=== PATIENT | female | born 1945 | race American Indian/Alaskan Native ===

== ENCOUNTER 2016-11-11 17:00 | Inpatient (IN) | payer MEDICARE ==
[2016-11-11 17:01] VITALS: BMI 24.0
[2016-11-11] MEDS ORDERED: Aspirin 325 mg EC Tablets PO STA (18:28)
[2016-11-11 18:45] LABS: BASO % 0.8 % (0.0-2.0); EOS # 0.2 K/uL (0.0-0.7); EOS % 3.3 % (0.0-4.0); HEMATOCRIT 20.2 % (34.0-47.0); LYMPH # 1.8 K/uL (1.0-4.3); LYMPH % 36.2 % (20.0-40.0); MEAN CELL VOLUME 68.3 fL (81.0-99.0); MEAN CORPUSCULAR HGB CONC 30.8 g/dL (33.0-37.0); MEAN PLATELET VOLUME 8.2 fL (7.2-11.7); MONO # 0.6 K/uL (0.0-0.8); MONO % 11.7 % (0.0-10.0); NRBC % 0.1 % (0.0-2.0); WHITE BLOOD COUNT 4.9 K/uL (4.8-10.8)
[2016-11-11 18:51] LABS: CHLORIDE 90 mmol/L (98-107)
[2016-11-11] MEDS ORDERED: Aspirin 325 mg EC Tablets PO ONE (18:51)
[2016-11-11 18:52] LABS: POTASSIUM 4.4 mmol/L (3.6-5.2); SODIUM 135 mmol/L (132-148)
[2016-11-11 18:54] LABS: ALB/GLOB RATIO 1.3 (1.0-2.1); ALKALINE PHOSPHATASE 174 U/L (38-126); AST/SGOT 23 U/L (14-36); BILIRUBIN,TOTAL 0.7 mg/dL (0.2-1.3); CARBON DIOXIDE 34 mmol/L (22-30); GFR AFRICAN-AMERICAN 9; TOTAL PROTEIN 7.4 g/dL (6.3-8.3)
[2016-11-11 18:55] LABS: ALT/SGPT 17 U/L (9-52); BLOOD UREA NITROGEN 42 mg/dL (7-17); CALCIUM 9.2 mg/dl (8.6-10.4); GLUCOSE,RANDOM 97 mg/dL (65-105)
--- NOTE | 2016-11-11 20:59 | C.PDOC ---
History Of Present Illness 71 y/o female, past medical history including HTN and ESRD, with dialysis on Monday, , Monday - last dialysis yesterday, presents to emergency department with complaint of right sided chest pain which started earlier this morning. She describes pain as sharp and non-radiating. Patient denies headache , SOB, fever, abdominal pain, nausea, or vomiting. Patient denies any recent cardiac workup. She notes that she did not take her evening anti-hypertensives. Also, denies any blood in the stool. Chief Complaint (Nursing): Chest Pain History Per: Patient History/Exam Limitations: no limitations Onset/Duration Of Symptoms: Days Current Symptoms Are (Timing): Still Present Quality: Sharp, "Pain" Associated Symptoms: denies: Nausea, Dyspnea, Diaphoresis Recent travel outside of the [place]: No Past Medical History Reviewed: Historical Data, Nursing Documentation, Vital Signs Vital Signs: Last Vital Signs Temp 98.1 F 11/11/16 23:30 Pulse 60 11/11/16 23:30 Resp 20 11/11/16 23:30 BP 143/62 11/11/16 23:30 Pulse Ox 97 11/11/16 23:30 - Medical History PMH: Anemia, Diabetes, HTN, Hypercholesterolemia, Chronic Kidney Disease - [facility] Procedures BONE MARROW BIOPSY (11/06/13) CT SCAN OF L KIDNEY USING L OSM CONTRAST (08/05/15) ENDOSC POLYPECTOMY OF LG INTEST (11/06/13) ESOPHAGOGASTRODUODENOSCOPY [EGD] W/CLOSED BIOPSY (11/06/13) EXCISION OF LEFT KIDNEY, PERCUTANEOUS APPROACH, DIAGNOSTIC (08/05/15) PACKED CELL TRANSFUSION (11/06/13) TRANSFUSE NONAUT RED BLOOD CELLS IN PERIPH VEIN, PERC (08/05/15) Family History: States: Unknown Family Hx - Social History Hx Tobacco Use: No Hx Alcohol Use: No Hx Substance Use: No - Immunization History Hx Tetanus Toxoid Vaccination: No Hx Influenza Vaccination: No Hx Pneumococcal Vaccination: No Review Of Systems Except As Marked, All Systems Reviewed And Found Negative. Constitutional: Negative for: Fever, Chills Cardiovascular: Positive for: Chest Pain (right sided). Negative for: Palpitations Respiratory: Negative for: Cough, Shortness of Breath, Wheezing Gastrointestinal: Negative for: Nausea, Vomiting, Abdominal Pain, Hematochezia Musculoskeletal: Negative for: Neck Pain Skin: Negative for: Rash Neurological: Negative for: Headache, Dizziness Physical Exam - Physical Exam Appears: Non-toxic, No Acute Distress Skin: Warm, Dry Head: Atraumatic, Normacephalic Eye(s): bilateral: Normal Inspection Oral Mucosa: Moist Chest: Symmetrical, No Ecchymosis, Other (right subclavian Shylie) Cardiovascular: Rhythm Regular Respiratory: Normal Breath Sounds, No Accessory Muscle Use, No Rales, No Rhonchi , No Wheezing Gastrointestinal/Abdominal: Soft, No Tenderness, No Guarding, No Rebound Back: Normal Inspection Extremity: Normal ROM, Capillary Refill (< 2 sec. ) Neurological/Psych: Oriented x3, Normal Speech, Normal Cognition ED Course And Treatment - Laboratory Results Result Diagrams: 11/11/16 18:40 11/11/16 18:40 ECG: Interpreted By Me ECG Rhythm: Sinus Rhythm Interpretation Of ECG: normal axis, normal interval, left atrial enlargement Rate From EC (bpm) O2 Sat by Pulse Oximetry: 96 (ra) Pulse Ox Interpretation: Normal - Radiology CXR: Interpreted by Me Medical Decision Making Medical Decision Making: Plan: * aspirin 325mg PO * hydralazine * EKG, CxR, bloodwork, cardiac/vascular sonographer * reassess Prior Visits: Notes and results from previous visits were reviewed Progress Notes: Notified Dr. Carlos Gallego, will be admitted to his service under telemetry for chest pain and low hgb. Disposition - Disposition Disposition Time: 19:30 Condition: STABLE - Clinical Impression Clinical Impression: Chest pain, Anemia, Renal failure - Scribe Statement The provider has reviewed the documentation as recorded by the Kishoreibsalazar Mclean All medical record entries made by the Kishoreibsalazar were at my direction and personally dictated by me. I have reviewed the chart and agree that the record accurately reflects my personal performance of the history, physical exam, medical decision making, and the department course for this patient. I have also personally directed, reviewed, and agree with the discharge instructions and disposition.
--- NOTE | 2016-11-11 21:59 | CP.PCM.HP ---
History of Present Illness - History of Present Illness History of Present Illness: 71-year-old female patient with past medical history of hypertension, hypercholesterolemia, chronic kidney disease with dialysis on Mondaylast dialysis yesterday, presented to the ED with complaint of right- sided chest pain which started earlier this morning. Patient describes pain as sharp and nonradiating Denies headache, shortness of breath, fever, abdominal pain, nausea, vomiting. Denies any recent cardiac workup. Patient notes that she did not take her evening antihypertensive. Denies any blood in the stool. Present on Admission - Present on Admission Any Indicators Present on Admission: No Past Patient History - Tetanus Immunizations Tetanus Immunization: Unknown - Past Social History Smoking Status: Former Smoker - CARDIAC Hx Hypercholesterolemia: Yes Hx Hypertension: Yes - PULMONARY Hx Respiratory Disorders: No - NEUROLOGICAL Hx Neurological Disorder: No - HEENT Hx HEENT Problems: Yes (WEARS GLASSES) Hx Cataracts: Yes - RENAL Hx Chronic Kidney Disease: Yes - ENDOCRINE/METABOLIC Hx Diabetes Mellitus Type 2: Yes - HEMATOLOGICAL/ONCOLOGICAL Hx Anemia: Yes - INTEGUMENTARY Hx Dermatological Problems: No - MUSCULOSKELETAL/RHEUMATOLOGICAL Hx Falls: No - GASTROINTESTINAL Hx Gastrointestinal Disorders: No - PSYCHIATRIC Hx Substance Use: No - SURGICAL HISTORY Hx Surgeries: Yes (CATARACT) - ANESTHESIA Hx Anesthesia Reactions: No Hx Malignant Hyperthermia: No Meds Home Medications: Home Medication List Medication Instructions Recorded Confirmed Type Aspirin 325 mg PO DAILY #30 tab 11/14/16 Rx Bumetanide [Bumex] 3 mg PO BID #60 tab 11/14/16 Rx Pantoprazole [Protonix EC Tab] 40 mg PO DAILY ect 11/14/16 Rx Ticagrelor [Brilinta] 90 mg PO BID #30 tab 11/14/16 Rx amLODIPine [Norvasc] 10 mg PO DAILY #30 tab 11/14/16 Rx cloNIDine [Catapres] 0.2 mg PO Q8 #30 tab 11/14/16 Rx Allergies/Adverse Reactions: Allergies Allergy/AdvReac Type Severity Reaction Status Date / Time No Known Allergies Allergy Verified 11/11/16 17:27 Results - Vital Signs Recent Vital Signs: Last Vital Signs Temp 98.8 F 11/11/16 19:51 Pulse 74 11/11/16 21:16 Resp 16 11/11/16 21:16 BP 210/84 H 05/12/17 21:16 Pulse Ox 96 11/11/16 21:16 - Labs Result Diagrams: 11/13/16 08:02 11/12/16 11:20 Assessment & Plan (1) Chest pain Status: Acute (2) Renal failure Status: Acute (3) Anemia Status: Chronic (4) End-stage renal disease on hemodialysis Status: Chronic (5) Type 2 diabetes mellitus Status: Chronic - Assessment and Plan (Free Text) Plan: protonix lovenox [id number] catapres hydralazine brilinta dr.simon mckeon cardio consult home med reconiliation romix3 ruddy same
--- NOTE | 2016-11-12 08:45 | RAD ---
PROCEDURE: CHEST RADIOGRAPH, 1 VIEW HISTORY: chest pain COMPARISON: None available. FINDINGS: LUNGS: No evidence of focal infiltrate or consolidation in the lungs. PLEURA: No pneumothorax or pleural fluid seen. CARDIOVASCULAR: Mild cardiomegaly is noted. OSSEOUS STRUCTURES: No significant abnormalities. VISUALIZED UPPER ABDOMEN: Normal. OTHER FINDINGS: Left-sided double Bryn catheter is seen in place. IMPRESSION: No evidence of acute pulmonary disease. Possible mild cardiomegaly.
[2016-11-12] MEDS ORDERED: Enoxaparin 40 mg Syringe SC SCH (10:00)
--- NOTE | 2016-11-12 11:15 | CON ---
DATE: 11/12/2016 This is a 71-year-old woman with severe anemia. The patient gives a very poor history, but evidently she is on dialysis. She comes in being very weak and was found to have a hemoglobin of 6.2 with an MCV of 65, creatinine of 5.6. PHYSICAL EXAMINATION: SKIN: No petechiae, no bruises. HEENT: Anicteric. NODES: None palpable in the axillary, cervical, supraclavicular or inguinal regions. LUNGS: Clear at present. No vertebral tenderness. The patient is able to lie flat without symptoms . HEART: S1, S2. ABDOMEN: Shows no liver, no spleen, no tenderness, no rebound, no ascites. EXTREMITIES: No edema. CENTRAL NERVOUS SYSTEM: No focal finding. The patient is on dialysis. In 10/2013 she was discovered to have anemia. She had a bone marrow aspi ration biopsy at that time and upper and lower endoscopy 3 years ago. In 08/2015 she had apparently a biopsy of the kidney and she also had a blood transfusion and is now admitted for the weakness and w as found to have hemoglobin of 6.2. She received 2 units of packed cells. I ordered a third unit of packed cells if hemoglobin is below 8. I also ordered iron studies, but with an MCV of 62, this is most likely iron deficiency. She yoandy l need a GI evaluation when she is more stable. In the meantime, I gave her an order for intravenous IV iron and we will see how she does with this. So, in summary, I would order rule out a GI bleed care. Leland Duenas MD cc: [id number] TT: 11/12/2016 11:14:49 Confirmation # [id number] Dictation # [id number] marco antonio
[2016-11-12 11:26] LABS: HEMATOCRIT 24.8 % (34.0-47.0); MEAN CORPUSCULAR HGB CONC 32.6 g/dL (33.0-37.0); MEAN PLATELET VOLUME 7.9 fL (7.2-11.7); RED CELL DISTRIBUTION WIDTH 19.5 % (11.5-14.5); WHITE BLOOD COUNT 4.8 K/uL (4.8-10.8)
[2016-11-12] MEDS: Ferric Sodium Gluconat Complex 62.5 mg/5 ml Vial IVPB SCH (11:27)
[2016-11-12 11:46] LABS: POTASSIUM 4.7 mmol/L (3.6-5.2)
[2016-11-12 11:48] LABS: IRON 161 ug/dL (37-170)
[2016-11-12 11:49] LABS: CALCIUM 8.6 mg/dl (8.6-10.4)
[2016-11-12 11:50] LABS: MEAN CELL VOLUME 73.6 fL (81.0-99.0)
--- NOTE | 2016-11-12 14:47 | CP.PCM.PN ---
Subjective - Date & Time of Evaluation Date of Evaluation: 11/12/16 Time of Evaluation: 14:00 - Subjective Subjective: clinically same Objective - Vital Signs/Intake and Output Vital Signs (last 24 hours): Temp Pulse Resp BP Pulse Ox 97.9 F 60 19 178/83 H 100 11/12/16 14:00 11/12/16 14:27 11/12/16 14:27 11/12/16 14:27 11/12/16 14:00 Intake and Output: 11/12/16 11/12/16 06:59 18:59 Intake Total 800 Balance 800 - Medications Medications: Current Medications Amlodipine Besylate (Norvasc) 5 mg PO DAILY [facility] Aspirin (Ecotrin) 325 mg PO DAILY [facility] Carvedilol (Coreg) 25 mg PO BID [facility] Clonidine HCl (Catapres) 0.2 mg PO Q8 [facility] Last Admin: 11/12/16 04:16 Dose: 0.2 mg Colchicine (Colocrys) 0.6 mg PO PRN [facility] Enoxaparin Sodium (Lovenox) 40 mg SC DAILY [facility] Ferric Sodium Gluconate Complex (Ferrlecit) 125 mg IVPB DAILY [facility] Stop: 11/20/16 10:01 Last Admin: 11/12/16 11:27 Dose: 125 mg Furosemide (Lasix) 80 mg PO BID [facility] Heparin Sodium (Porcine) (Heparin) 4,500 units IVP TTS [facility] Last Admin: 11/12/16 12:41 Dose: 4,500 units Hydralazine HCl (Apresoline) 25 mg PO QID [facility] Last Admin: 11/12/16 13:17 Dose: Not Given Insulin Detemir (Levemir) 10 unit SC HS [facility] Minoxidil (Minoxidil) 2.5 mg PO DAILY [facility] Pantoprazole Sodium (Protonix Ec Tab) 40 mg PO DAILY [facility] Rosuvastatin Calcium (Crestor) 2.5 mg PO HS [facility] Ticagrelor (Brilinta) 90 mg PO BID [facility] - Labs Labs: 11/12/16 11:20 11/12/16 11:20 - Constitutional Appears: Well - Head Exam Head Exam: ATRAUMATIC, NORMAL INSPECTION, NORMOCEPHALIC - Eye Exam Eye Exam: EOMI, Normal appearance, PERRL Pupil Exam: NORMAL ACCOMODATION, PERRL - ENT Exam ENT Exam: Mucous Membranes Moist, Normal Exam - Neck Exam Neck Exam: Full ROM, Normal Inspection. absent: Lymphadenopathy - Respiratory Exam Respiratory Exam: Decreased Breath Sounds - Cardiovascular Exam Cardiovascular Exam: REGULAR RHYTHM, +S1, +S2 - GI/Abdominal Exam GI & Abdominal Exam: Soft, Diminished Bowel Sounds - Rectal Exam Rectal Exam: Deferred Assessment and Plan (1) Chest pain Status: Acute (2) Renal failure Status: Acute (3) Anemia Status: Chronic (4) End-stage renal disease on hemodialysis Status: Chronic (5) Type 2 diabetes mellitus Status: Chronic - Assessment and Plan (Free Text) Plan: consult cardiology consult Dr. mckeon Protonix Lovenox Hydralazine catapres brilinta
[2016-11-12] MEDS: Aspirin 325 mg EC Tablets PO SCH (15:17)
[2016-11-12] MEDS: Pantoprazole 40 mg EC Tab PO SCH (15:18)
--- NOTE | 2016-11-12 18:38 | CON ---
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 The patient reports sudden onset of chest pain yesterday that persisted for a long time and was accom panied by a headaches. Denies any associated shortness of breath. Otherwise, the patient has been f eeling well. Exercise tolerance is relatively limited to walking around the house, but does not use a cane or a walker and denies any dyspnea on exertion, only feeling fatigue. The patient denies any hematochezia or hematuria. REVIEW OF SYSTEMS: CONSTITUTIONAL: Denies fevers, chills. Appetite has been good. EYES: Poor vision, reportedly due to cataracts. CARDIOVASCULAR: As noted in HPI. Denies any leg swelling. RESPIRATORY: No shortness of breath. GASTROINTESTINAL: Normal bowel movements, no hematochezia. GENITOURINARY: Urinates 2-3 times a day, reportedly a good amount. Denies any dysuria. SKIN: Intermittent pruritus on back; otherwise, denies rashes. NEUROLOGIC: Intermittent headaches. PAST MEDICAL HISTORY: As above. SOCIAL HISTORY: Former smoker many years ago. FAMILY HISTORY: Both parents with hypertension and diabetes. PHYSICAL EXAMINATION: VITAL SIGNS: This morning blood pressure 169/80, heart rate 60, respirations 19, temperature 97.7, O 2 sat 99% on O2 via nasal cannula. GENERAL: No distress, speaking coherently in full sentences. HEENT: Moist mucous membranes, nonicteric. CHEST: Clear to auscultation bilaterally, no rales, no rhonchi, no wheezes. HEART: S1, S2 normal. Regular rate and rhythm. Good bilateral dorsalis pedis pulses. GASTROINTESTINAL: Abdomen soft, nontender, nondistended. GENITOURINARY: Bladder nondistended. EXTREMITIES: Minimal bilateral lower leg edema. Good capillary refill. SKIN: Warm, no cyanosis. PSYCHIATRIC: Normal mood and normal affect. NEUROLOGIC: Follows commands. LABORATORY DATA: This morning: CBC: WBC 4.8, hemoglobin 8.1, up from 6.2; hematocrit 24.8, platele ts 111. Chemistry: Sodium 134, potassium 4.7, chloride 91, bicarbonate 32, BUN 53, creatinine 6.5, calcium 8.6, glucose 128. Chest x-ray: Directly visualized showing no pulmonary vascular congestion , although with somewhat increased interstitial markings. ASSESSMENT AND PLAN: 1. End-stage renal disease on hemodialysis, stable electrolyte and volume status, dialyzing today pe r routine on 2K, 2.5 calcium, 34 bicarb, dialysate. 2. Symptomatic anemia. Unclear etiology of drop in hemoglobin. Baseline records are awaited from [facility]. Transfused 2 units packed red blood cells overnight with appropriate increas e in hemoglobin level. Iron stores from labs done today, will be reflecting of transfusion done over night. Hematology following the patient. Was started on IV iron, but will await outpatient records to see if this is needed. 3. Hypertension, uncontrolled. The patient on minoxidil 2.5 mg daily, Coreg 25 mg b.i.d., hydralazi ne 25 mg q.i.d. and amlodipine 5 mg daily at home as well as Lasix 80 mg b.i.d. Started here on clon idine 0.2 mg q.8 hours. Will need to reassess blood pressure status after ultrafiltration on hemodia lysis, which was set for 3 liters. Will adjust medications accordingly thereafter. 4. Diabetes. The patient on insulin, detemir 10 units at bedtime at home. Need to monitor blood flores gars carefully and end-stage renal disease, the patient to avoid hypotension. 5. Chest pain, concern for unstable angina; however, the chest pain is likely due to demand ischemia in the setting of markedly low hemoglobin level. Cardiology consulted. Will follow. 6. Chronic kidney disease, mineral bone disease. Will check phosphorus level and place the patient on binders as needed. Will discontinue sodium bicarbonate tablets, as patient is being dialyzed agai n today, high bicarbonate dialysate. Aravind Mattson MD cc: [id number] TT: 11/12/2016 18:37:38 Confirmation # [id number] Dictation # [id number] boogie
[2016-11-12] MEDS: Insulin Detemir 100 units/ml Vial (Levemir) SC SCH (21:42)
[2016-11-12] MEDS: Rosuvastatin Calcium 2.5 mg Tab PO SCH (21:44)
[2016-11-13 08:16] LABS: BASO # 0.1 K/uL (0.0-0.2); BASO % 0.9 % (0.0-2.0); EOS # 0.1 K/uL (0.0-0.7); EOS % 2.4 % (0.0-4.0); HEMATOCRIT 26.6 % (34.0-47.0); LYMPH # 1.5 K/uL (1.0-4.3); LYMPH % 26.5 % (20.0-40.0); MEAN CELL VOLUME 73.7 fL (81.0-99.0); MEAN CORPUSCULAR HEMOGLOBIN 24.2 pg (27.0-31.0); MEAN CORPUSCULAR HGB CONC 32.9 g/dL (33.0-37.0); MEAN PLATELET VOLUME 8.2 fL (7.2-11.7); MONO # 0.5 K/uL (0.0-0.8); MONO % 9.1 % (0.0-10.0); NRBC % 0.1 % (0.0-2.0); RED CELL DISTRIBUTION WIDTH 19.2 % (11.5-14.5); WHITE BLOOD COUNT 5.7 K/uL (4.8-10.8)
[2016-11-13] MEDS: Aspirin 325 mg EC Tablets PO SCH (10:59)
[2016-11-13] MEDS: Pantoprazole 40 mg EC Tab PO SCH (10:59)
[2016-11-13] MEDS: Ferric Sodium Gluconat Complex 62.5 mg/5 ml Vial IVPB SCH (11:00)
--- NOTE | 2016-11-13 16:26 | CP.PCM.PN ---
Subjective - Date & Time of Evaluation Date of Evaluation: 11/13/16 Time of Evaluation: 11:40 - Subjective Subjective: cliniclly same Objective - Vital Signs/Intake and Output Vital Signs (last 24 hours): Temp Pulse Resp BP Pulse Ox 98.2 F 72 20 153/66 H 95 11/12/16 23:45 11/13/16 09:37 11/12/16 23:45 11/13/16 11:00 11/12/16 23:45 Intake and Output: 11/13/16 11/13/16 06:59 18:59 Intake Total 300 Balance 300 - Medications Medications: Current Medications Amlodipine Besylate (Norvasc) 5 mg PO DAILY [facility] Last Admin: 11/13/16 10:58 Dose: 5 mg Aspirin (Ecotrin) 325 mg PO DAILY [facility] Last Admin: 11/13/16 10:59 Dose: 325 mg Carvedilol (Coreg) 25 mg PO BID [facility] Last Admin: 11/13/16 10:58 Dose: 25 mg Clonidine HCl (Catapres) 0.2 mg PO Q8 [facility] Last Admin: 11/13/16 14:16 Dose: 0.2 mg Colchicine (Colocrys) 0.6 mg PO DAILY [facility] Last Admin: 11/13/16 10:59 Dose: 0.6 mg Enoxaparin Sodium (Lovenox) 30 mg SC Q24H [facility] Ferric Sodium Gluconate Complex (Ferrlecit) 125 mg IVPB DAILY [facility] Stop: 11/20/16 10:01 Last Admin: 11/13/16 11:00 Dose: 125 mg Furosemide (Lasix) 80 mg PO BID [facility] Last Admin: 11/13/16 11:00 Dose: 80 mg Heparin Sodium (Porcine) (Heparin) 4,500 units IVP TTS [facility] Last Admin: 11/12/16 12:41 Dose: 4,500 units Hydralazine HCl (Apresoline) 25 mg PO QID [facility] Last Admin: 11/13/16 14:16 Dose: 25 mg Insulin Detemir (Levemir) 10 unit SC HS [facility] Last Admin: 11/12/16 21:42 Dose: 10 unit Minoxidil (Minoxidil) 2.5 mg PO DAILY [facility] Last Admin: 11/13/16 10:59 Dose: 2.5 mg Pantoprazole Sodium (Protonix Ec Tab) 40 mg PO DAILY [facility] Last Admin: 11/13/16 10:59 Dose: 40 mg Rosuvastatin Calcium (Crestor) 2.5 mg PO HS [facility] Last Admin: 11/12/16 21:44 Dose: 2.5 mg Ticagrelor (Brilinta) 90 mg PO BID [facility] Last Admin: 11/13/16 11:00 Dose: 90 mg - Labs Labs: 11/13/16 08:02 - Constitutional Appears: Well - Head Exam Head Exam: ATRAUMATIC, NORMAL INSPECTION, NORMOCEPHALIC - Eye Exam Eye Exam: EOMI, Normal appearance, PERRL Pupil Exam: NORMAL ACCOMODATION, PERRL - ENT Exam ENT Exam: Mucous Membranes Moist, Normal Exam - Neck Exam Neck Exam: Full ROM, Normal Inspection. 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
[2016-11-13] MEDS: Enoxaparin 30 mg Syringe SC SCH (18:12)
[2016-11-13 18:34] VITALS: RESP 20
[2016-11-13] MEDS: Rosuvastatin Calcium 2.5 mg Tab PO SCH (22:53)
[2016-11-13] MEDS: Insulin Detemir 100 units/ml Vial (Levemir) SC SCH (22:53)
--- NOTE | 2016-11-13 23:54 | CP.PCM.PN ---
Subjective - Date & Time of Evaluation Date of Evaluation: 11/13/16 Time of Evaluation: 22:00 - Subjective Subjective: Tolerating HD; Objective - Vital Signs/Intake and Output Vital Signs (last 24 hours): Temp Pulse Resp BP Pulse Ox 98.3 F 60 20 154/67 H 98 11/13/16 16:00 11/13/16 16:00 11/13/16 16:00 11/13/16 22:50 11/13/16 16:00 - Medications Medications: Current Medications Amlodipine Besylate (Norvasc) 10 mg PO DAILY [facility] Aspirin (Ecotrin) 325 mg PO DAILY [facility] Last Admin: 11/13/16 10:59 Dose: 325 mg Carvedilol (Coreg) 25 mg PO BID [facility] Last Admin: 11/13/16 18:11 Dose: 25 mg Clonidine HCl (Catapres) 0.2 mg PO Q8 [facility] Last Admin: 11/13/16 22:53 Dose: 0.2 mg Colchicine (Colocrys) 0.6 mg PO DAILY [facility] Last Admin: 11/13/16 10:59 Dose: 0.6 mg Enoxaparin Sodium (Lovenox) 30 mg SC Q24H [facility] Last Admin: 11/13/16 18:12 Dose: 30 mg Ferric Sodium Gluconate Complex (Ferrlecit) 125 mg IVPB DAILY [facility] Stop: 11/20/16 10:01 Last Admin: 11/13/16 11:00 Dose: 125 mg Furosemide (Lasix) 80 mg PO BID [facility] Last Admin: 11/13/16 18:11 Dose: 80 mg Heparin Sodium (Porcine) (Heparin) 4,500 units IVP TTS [facility] Last Admin: 11/12/16 12:41 Dose: 4,500 units Hydralazine HCl (Apresoline) 25 mg PO QID [facility] Last Admin: 11/13/16 22:53 Dose: 25 mg Insulin Detemir (Levemir) 10 unit SC HS [facility] Last Admin: 11/13/16 22:53 Dose: 10 unit Minoxidil (Minoxidil) 2.5 mg PO DAILY [facility] Last Admin: 11/13/16 10:59 Dose: 2.5 mg Pantoprazole Sodium (Protonix Ec Tab) 40 mg PO DAILY [facility] Last Admin: 11/13/16 10:59 Dose: 40 mg Rosuvastatin Calcium (Crestor) 2.5 mg PO HS [facility] Last Admin: 11/13/16 22:53 Dose: 2.5 mg Ticagrelor (Brilinta) 90 mg PO BID [facility] Last Admin: 11/13/16 22:53 Dose: 90 mg - Labs Labs: 11/13/16 08:02 - Constitutional Appears: No Acute Distress Assessment and Plan (1) Chest pain Assessment & Plan: Management per cardio; anemia likely contributory; Status: Acute (2) Anemia Assessment & Plan: Needs to be on ANGEL; Status: Chronic (3) End-stage renal disease on hemodialysis Assessment & Plan: Continuing HD per routine; Status: Chronic
[2016-11-14] MEDS: Ferric Sodium Gluconat Complex 62.5 mg/5 ml Vial IVPB SCH (10:19)
[2016-11-14] MEDS: Pantoprazole 40 mg EC Tab PO SCH (10:19)
[2016-11-14] MEDS: Aspirin 325 mg EC Tablets PO SCH (10:19)
--- NOTE | 2016-11-14 12:03 | CP.PCM.CON ---
History of Present Illness - History of Present Illness History of Present Illness: 71 years old lady with prior history of type 2 diabetes on insulin complicated with end state renal disease on maintenance hemodialysis. She resides in [place] and when she is here she follows up with renal service recently started on hemodialysis and had prior admission with hypoglycemia and anemia at time. The anemia workup included a bone marrow aspirate in addition to colonoscopy. At this time she is admitted through the emergency department with an atypical chest pain on the right side pleuritic in nature. In addition she was found to have hemoglobin of 6.2, seen by hematology, was transfused 2 units of red blood cells and currently the hemoglobin is 8.7. The EKG was unremarkable no acute changes and enzymes were negative for [place]. However her BNP was elevated indicative of diastolic heart failure on hemodialysis. At this time she is pain-free with continue observation and have hematology and GI workup in addition to the renal care. From the cardiac viewpoint she's probably with coronary artery disease historically from the multiple risk factors, further coronary workup as outpatient is indicated to include an echocardiogram and stress test. Reportedly the patient had recent cardiac workup the details are not known so far. Review of Systems - Review of Systems Systems not reviewed;Unavailable: Acuity of Condition - Constitutional Constitutional: Anorexia. absent: Weakness - EENT Eyes: absent: Discharge Ears: absent: Ear Discharge, Dizziness Nose/Mouth/Throat: absent: Epistaxis - Cardiovascular Cardiovascular: Chest Pain. absent: Acrocyanosis, Diaphoresis, Pedal Edema, Syncope - Respiratory Respiratory: absent: Cough, Dyspnea, Hemoptysis - Gastrointestinal Gastrointestinal: absent: Abdominal Pain, Constipation, Diarrhea, Vomiting - Genitourinary Genitourinary: absent: Change in Urinary Stream Past Patient History - Tetanus Immunizations Tetanus Immunization: Unknown - Past Social History Smoking Status: Former Smoker - CARDIAC Hx Hypercholesterolemia: Yes Hx Hypertension: Yes - PULMONARY Hx Respiratory Disorders: No - NEUROLOGICAL Hx Neurological Disorder: No - HEENT Hx HEENT Problems: Yes (WEARS GLASSES) Hx Cataracts: Yes - RENAL Hx Chronic Kidney Disease: Yes Date of Last Dialysis Treatment: 11/10/16 - ENDOCRINE/METABOLIC Hx Diabetes Mellitus Type 2: Yes - HEMATOLOGICAL/ONCOLOGICAL Hx Anemia: Yes - INTEGUMENTARY Hx Dermatological Problems: No - MUSCULOSKELETAL/RHEUMATOLOGICAL Hx Falls: Yes - GASTROINTESTINAL Hx Gastrointestinal Disorders: No - PSYCHIATRIC Hx Substance Use: No - SURGICAL HISTORY Hx Surgeries: Yes (CATARACT) - ANESTHESIA Hx Anesthesia Reactions: No Hx Malignant Hyperthermia: No Meds Allergies/Adverse Reactions: Allergies Allergy/AdvReac Type Severity Reaction Status Date / Time No Known Allergies Allergy Verified 11/11/16 17:27 - Medications Medications: Current Medications Amlodipine Besylate (Norvasc) 10 mg PO DAILY [facility] Last Admin: 11/14/16 10:19 Dose: 10 mg Aspirin (Ecotrin) 325 mg PO DAILY [facility] Last Admin: 11/14/16 10:19 Dose: 325 mg Bumetanide (Bumex) 3 mg PO BID [facility] Carvedilol (Coreg) 25 mg PO BID [facility] Last Admin: 11/14/16 10:18 Dose: 25 mg Clonidine HCl (Catapres) 0.2 mg PO Q8 [facility] Last Admin: 11/14/16 05:42 Dose: 0.2 mg Colchicine (Colocrys) 0.6 mg PO DAILY [facility] Last Admin: 11/14/16 10:20 Dose: 0.6 mg Enoxaparin Sodium (Lovenox) 30 mg SC Q24H [facility] Last Admin: 11/13/16 18:12 Dose: 30 mg Ferric Sodium Gluconate Complex (Ferrlecit) 125 mg IVPB DAILY [facility] Stop: 11/20/16 10:01 Last Admin: 11/14/16 10:19 Dose: 125 mg Heparin Sodium (Porcine) (Heparin) 4,500 units IVP TTS [facility] Last Admin: 11/12/16 12:41 Dose: 4,500 units Hydralazine HCl (Apresoline) 25 mg PO QID [facility] Last Admin: 11/14/16 10:19 Dose: 25 mg Insulin Detemir (Levemir) 10 unit SC HS [facility] Last Admin: 11/13/16 22:53 Dose: 10 unit Minoxidil (Minoxidil) 2.5 mg PO DAILY [facility] Last Admin: 11/14/16 10:19 Dose: 2.5 mg Pantoprazole Sodium (Protonix Ec Tab) 40 mg PO DAILY [facility] Last Admin: 11/14/16 10:19 Dose: 40 mg Rosuvastatin Calcium (Crestor) 2.5 mg PO HS [facility] Last Admin: 11/13/16 22:53 Dose: 2.5 mg Ticagrelor (Brilinta) 90 mg PO BID [facility] Last Admin: 11/14/16 10:20 Dose: 90 mg Physical Exam - Constitutional Appears: Non-toxic - Head Exam Head Exam: ATRAUMATIC - Eye Exam Eye Exam: EOMI - ENT Exam ENT Exam: Mucous Membranes Moist - Neck Exam Neck exam: Negative for: Lymphadenopathy, Thyromegaly - Respiratory Exam Respiratory Exam: Clear to Auscultation Bilateral. absent: Rales - Cardiovascular Exam Cardiovascular Exam: REGULAR RHYTHM, Systolic Murmur - GI/Abdominal Exam GI & Abdominal Exam: Normal Bowel Sounds. absent: Organomegaly - Rectal Exam Rectal Exam: Deferred - Extremities Exam Extremities exam: Positive for: normal capillary refill. Negative for: calf tenderness - Neurological Exam Neurological exam: Alert, Oriented x3 - Psychiatric Exam Psychiatric exam: Normal Affect - Skin Skin Exam: Dry Results - Vital Signs Recent Vital Signs: Last Vital Signs Temp 99.2 F 11/14/16 09:05 Pulse 65 11/14/16 09:05 Resp 20 11/14/16 09:05 BP 166/68 H 11/14/16 10:20 Pulse Ox 96 11/14/16 09:05 - Labs Result Diagrams: 11/13/16 08:02 11/12/16 11:20 Labs: Laboratory Results - last 24 hr 11/13/16 11/13/16 11/14/16 17:25 21:27 06:36 POC Glucose (mg/dL) 111 H 144 H 131 H Assessment & Plan (1) Chest pain Status: Acute Comment: Atypical negative for [place] workup as outpatient, unlikely PE or dissection clinically (2) Type 2 diabetes mellitus Status: Chronic (3) End-stage renal disease on hemodialysis Status: Chronic (4) Anemia Status: Chronic Comment: Severe on current workup
[2016-11-14 16:12] VITALS: BP 148/65; PULSE 62; TEMP 98.2; O2SAT 63
[2016-11-14] MEDS: Enoxaparin 30 mg Syringe SC SCH (17:30)
--- NOTE | 2016-11-14 18:13 | CP.PCM.PN ---
Subjective - Date & Time of Evaluation Date of Evaluation: 11/14/16 Time of Evaluation: 12:40 - Subjective Subjective: clinically same Objective - Vital Signs/Intake and Output Vital Signs (last 24 hours): Temp Pulse Resp BP Pulse Ox 98.2 F 62 20 148/65 63 L 11/14/16 16:11 11/14/16 16:11 11/14/16 16:11 11/14/16 16:11 11/14/16 16:11 Intake and Output: 11/14/16 11/14/16 06:59 18:59 Intake Total 385 Balance 385 - Medications Medications: Current Medications Amlodipine Besylate (Norvasc) 10 mg PO DAILY [facility] Last Admin: 11/14/16 10:19 Dose: 10 mg Aspirin (Ecotrin) 325 mg PO DAILY [facility] Last Admin: 11/14/16 10:19 Dose: 325 mg Bumetanide (Bumex) 3 mg PO BID [facility] Last Admin: 11/14/16 17:29 Dose: 3 mg Carvedilol (Coreg) 25 mg PO BID [facility] Last Admin: 11/14/16 10:18 Dose: 25 mg Clonidine HCl (Catapres) 0.2 mg PO Q8 [facility] Last Admin: 11/14/16 14:17 Dose: 0.2 mg Colchicine (Colocrys) 0.6 mg PO DAILY [facility] Last Admin: 11/14/16 10:20 Dose: 0.6 mg Enoxaparin Sodium (Lovenox) 30 mg SC Q24H [facility] Last Admin: 11/14/16 17:30 Dose: 30 mg Ferric Sodium Gluconate Complex (Ferrlecit) 125 mg IVPB DAILY [facility] Stop: 11/20/16 10:01 Last Admin: 11/14/16 10:19 Dose: 125 mg Heparin Sodium (Porcine) (Heparin) 4,500 units IVP TTS [facility] Last Admin: 11/12/16 12:41 Dose: 4,500 units Hydralazine HCl (Apresoline) 25 mg PO QID [facility] Last Admin: 11/14/16 17:30 Dose: 25 mg Insulin Detemir (Levemir) 10 unit SC HS [facility] Last Admin: 11/13/16 22:53 Dose: 10 unit Minoxidil (Minoxidil) 2.5 mg PO DAILY [facility] Last Admin: 11/14/16 10:19 Dose: 2.5 mg Pantoprazole Sodium (Protonix Ec Tab) 40 mg PO DAILY [facility] Last Admin: 11/14/16 10:19 Dose: 40 mg Rosuvastatin Calcium (Crestor) 2.5 mg PO HS [facility] Last Admin: 11/13/16 22:53 Dose: 2.5 mg Ticagrelor (Brilinta) 90 mg PO BID [facility] Last Admin: 11/14/16 17:30 Dose: 90 mg - Labs Labs: 11/13/16 08:02 - Constitutional Appears: Well - Head Exam Head Exam: ATRAUMATIC, NORMAL INSPECTION, NORMOCEPHALIC - Eye Exam Eye Exam: EOMI, Normal appearance, PERRL Pupil Exam: NORMAL ACCOMODATION, PERRL - ENT Exam ENT Exam: Mucous Membranes Moist, Normal Exam - Neck Exam Neck Exam: Full ROM, Normal Inspection. absent: Lymphadenopathy - Respiratory Exam Respiratory Exam: Decreased Breath Sounds - Cardiovascular Exam Cardiovascular Exam: REGULAR RHYTHM, +S1, +S2 - GI/Abdominal Exam GI & Abdominal Exam: Soft, Diminished Bowel Sounds - Rectal Exam Rectal Exam: Deferred Assessment and Plan - Assessment and Plan (Free Text) Plan: pt. can be discharged today f/u with me and Dr. Duenas at office continue HD at [facility]
--- NOTE | 2016-11-14 18:22 | CP.PCM.PN ---
Subjective - Date & Time of Evaluation Date of Evaluation: 11/14/16 Time of Evaluation: 18:22 Objective - Vital Signs/Intake and Output Vital Signs (last 24 hours): Temp Pulse Resp BP Pulse Ox 98.2 F 62 20 148/65 63 L 11/14/16 16:11 11/14/16 16:11 11/14/16 16:11 11/14/16 16:11 11/14/16 16:11 Intake and Output: 11/14/16 11/14/16 06:59 18:59 Intake Total 385 Balance 385 - Medications Medications: Current Medications Amlodipine Besylate (Norvasc) 10 mg PO DAILY [facility] Last Admin: 11/14/16 10:19 Dose: 10 mg Aspirin (Ecotrin) 325 mg PO DAILY [facility] Last Admin: 11/14/16 10:19 Dose: 325 mg Bumetanide (Bumex) 3 mg PO BID [facility] Last Admin: 11/14/16 17:29 Dose: 3 mg Carvedilol (Coreg) 25 mg PO BID [facility] Last Admin: 11/14/16 10:18 Dose: 25 mg Clonidine HCl (Catapres) 0.2 mg PO Q8 [facility] Last Admin: 11/14/16 14:17 Dose: 0.2 mg Colchicine (Colocrys) 0.6 mg PO DAILY [facility] Last Admin: 11/14/16 10:20 Dose: 0.6 mg Enoxaparin Sodium (Lovenox) 30 mg SC Q24H [facility] Last Admin: 11/14/16 17:30 Dose: 30 mg Ferric Sodium Gluconate Complex (Ferrlecit) 125 mg IVPB DAILY [facility] Stop: 11/20/16 10:01 Last Admin: 11/14/16 10:19 Dose: 125 mg Heparin Sodium (Porcine) (Heparin) 4,500 units IVP TTS [facility] Last Admin: 11/12/16 12:41 Dose: 4,500 units Hydralazine HCl (Apresoline) 25 mg PO QID [facility] Last Admin: 11/14/16 17:30 Dose: 25 mg Insulin Detemir (Levemir) 10 unit SC HS [facility] Last Admin: 11/13/16 22:53 Dose: 10 unit Minoxidil (Minoxidil) 2.5 mg PO DAILY [facility] Last Admin: 11/14/16 10:19 Dose: 2.5 mg Pantoprazole Sodium (Protonix Ec Tab) 40 mg PO DAILY [facility] Last Admin: 11/14/16 10:19 Dose: 40 mg Rosuvastatin Calcium (Crestor) 2.5 mg PO HS [facility] Last Admin: 11/13/16 22:53 Dose: 2.5 mg Ticagrelor (Brilinta) 90 mg PO BID [facility] Last Admin: 11/14/16 17:30 Dose: 90 mg - Labs Labs: 11/13/16 08:02
--- NOTE | 2016-11-14 19:42 | CP.PCM.PN ---
Subjective - Date & Time of Evaluation Date of Evaluation: 11/14/16 Time of Evaluation: 19:31 - Subjective Subjective: 71 Y/O FEMALE WITH PMHX DM II, ESRD, HD TTS, PT ADMITTED HERE FOR CHEST PAIN, CARDIAC ENZYMES NEGATIVE, HGB 6.2 UPON ADMISSION, WAS TRANSFUSED 2 UNITS OF BLOOD, CURRENTLY HGB IS 8.7, PT CLEARED FOR D/C PER DR BARNETT, DR LINARES, DR MAYER, PT EDUCATED TO F/U W/ DR BARNETT AND DR BAUGH IN THE OFFICE, RX GIVEN PER DR BARNETT AND DR MAYER, CONRIN[facility] HD AT [facility], RETURN TO ED IF ANY WORSENING S/S, PT AGREE W/POC, VERBALIZE UNDERSTANDING. Objective - Vital Signs/Intake and Output Vital Signs (last 24 hours): Temp Pulse Resp BP Pulse Ox 98.2 F 62 20 148/65 63 L 11/14/16 16:11 11/14/16 16:11 11/14/16 16:11 11/14/16 16:11 11/14/16 16:11 Intake and Output: 11/14/16 11/15/16 18:59 06:59 Intake Total 385 Balance 385 - Labs Labs: 11/13/16 08:02
--- NOTE | 2016-11-14 23:35 | PN ---
DATE: 11/14/2016 The patient is a 71-year-old female with past medical history of hypertension, diabetes, ESRD on hemo dialysis, admitted for symptomatic anemia. Nephrology following the patient for ESRD status. The patient reports feeling well. Denies any shortness of breath or chest pain. PHYSICAL EXAMINATION: VITAL SIGNS: Blood pressure this afternoon 148/65, heart rate 62, respirations 20, temperature 98.2. GENERAL: No distress, able to converse coherently in full sentences. HEENT: Moist mucous membranes. Nonicteric. CHEST: Clear to auscultation bilaterally. No rales, no rhonchi, no wheezes. HEART: S1, S2 normal, no murmurs, no gallops, no rubs. ABDOMEN: Soft, nontender, nondistended. EXTREMITIES: Minimal leg edema. LABORATORY DATA: None new since yesterday. ASSESSMENT: 1. End-stage renal disease on hemodialysis. The patient appears euvolemic by exam. Electrolytes recinos ve been stable. Tolerated hemodialysis well 2 days ago. Should continue with outpatient dialysis 3 days a week, Monday, , and Monday. 2. Symptomatic anemia. Iron studies showing the patient is iron replete. The patient with low MCV despite being iron replete and raises the possibility of having thalassemia. Nevertheless, the patie nt is ESRD and needs to be given erythropoietin stimulating agents. Will communicate this to the out patient dialysis unit to ensure the patient receives regular doses of ANGEL. 3. Diabetes. A1c had previously been under control. The patient did have 1 hypoglycemic reading ye . Otherwise, relatively euglycemic on insulin detemir 10 units at bedtime, continue. 4. Hypertension, uncontrolled. The patient still mixed urine; therefore, diuretics changed from Las ix 80 mg b.i.d. to Bumex 3 mg b.i.d. as p.o. Bumex has much better bioavailability than Lasix. Amlod ipine also increased from 5 mg to 10 mg. Aravind Mattson MD cc: [id number] TT: 11/14/2016 23:35:02 Confirmation # [id number] Dictation # [id number] mn
--- NOTE | 2016-11-15 19:03 | CARD ---
APPROVED REPORT EKG Measurement Heart [id number] <Conclusion> Normal sinus rhythm Possible Left atrial enlargement Borderline ECG
== END 2016-11-14 19:14 | disposition home or self-care (01) | DRG 811 ==
LOC: C.ER 17:00 → C.9E 19:44 → C.6T 20:31 → OBSVTOIN 11-12 17:31
PROVIDERS: ADMIT Internal Medicine Nephrology; ATTEND Internal Medicine Nephrology
PROC: 5A1D00Z (ICD-10-PCS; principal; 2016-11-12)
PROC: 30233N1 Transfusion of Nonautologous Red Blood Cells into Peripheral Vein, Percutaneous Approach (ICD-10-PCS; 2016-11-12)
DX: D50.9 Iron deficiency anemia, unspecified (principal); N18.6 End stage renal disease; I13.2 Hypertensive heart and chronic kidney disease with heart failure and with stage 5 chronic kidney disease, or end stage renal disease; E11.22 Type 2 diabetes mellitus with diabetic chronic kidney disease; I50.30 Unspecified diastolic (congestive) heart failure; Z99.2 Dependence on renal dialysis; E78.00 Pure hypercholesterolemia, unspecified; Z87.891 Personal history of nicotine dependence; Z79.4 Long term (current) use of insulin

== ENCOUNTER 2017-09-05 18:48 | Inpatient (IN) | payer MEDICARE ==
[2017-09-05 18:48] VITALS: BMI 23.0
--- NOTE | 2017-09-05 19:29 | C.PDOC ---
History Of Present Illness 72 year old female with a past medical history including HTN and ESRD, with dialysis on Monday, , Monday sent to the ER from dialysis after being found to be hypertensive while at dialysis. As per family, patient has been found to have elevated pressure by dialysis for the past 2 weeks but was found to be more so today. Family reports patient has been compliant with all her medications except one unknown blood pressure medication which has ran out. Family also notes that over the past weekend patient has been sluggish and "not herself" with a decreased appetite. Family reports patient is oriented x3 and self sufficient at baseline, however, patient's baseline blood pressure is unknown. Family denies patient has had any fever, diarrhea, vomiting, abdominal pain, or chest pain. Patient is s/p clonidine [facility]ER. Time Seen by Provider: 09/05/17 19:25 Chief Complaint (Nursing): High Blood Pressure History Per: Family History/Exam Limitations: no limitations Onset/Duration Of Symptoms: Hrs Current Symptoms Are (Timing): Still Present Associated Symptoms: Other (Sluggish, Decreased appetite) Exacerbating Factor(s): Pos: Recently Missed Doses Of Medication Recent travel outside of the [place]: No Past Medical History Reviewed: Historical Data, Nursing Documentation, Vital Signs Vital Signs: Last Vital Signs Temp 99.9 F H 09/05/17 21:30 Pulse 83 09/05/17 22:33 Resp 16 09/05/17 22:18 BP 262/100 H 09/05/17 22:33 Pulse Ox 95 09/05/17 22:18 - Medical History PMH: Anemia, Diabetes, HTN, Hypercholesterolemia, Chronic Kidney Disease - [facility] Procedures BONE MARROW BIOPSY (11/06/13) CT SCAN OF L KIDNEY USING L OSM CONTRAST (08/05/15) ENDOSC POLYPECTOMY OF LG INTEST (11/06/13) ESOPHAGOGASTRODUODENOSCOPY [EGD] W/CLOSED BIOPSY (11/06/13) EXCISION OF LEFT KIDNEY, PERCUTANEOUS APPROACH, DIAGNOSTIC (08/05/15) PACKED CELL TRANSFUSION (11/06/13) PERFORMANCE OF URINARY FILTRATION, SINGLE (11/12/16) TRANSFUSE NONAUT RED BLOOD CELLS IN PERIPH VEIN, PERC (11/12/16) Family History: States: Unknown Family Hx - Social History Hx Tobacco Use: No Hx Alcohol Use: No Hx Substance Use: No - Immunization History Hx Tetanus Toxoid Vaccination: No Hx Influenza Vaccination: No Hx Pneumococcal Vaccination: No Review Of Systems Review Of Systems: ROS cannot be obtained secondary to pt's inabilty to answer questions. Physical Exam - Physical Exam Appears: Other (Sleeping) Skin: Normal Color, Warm, Dry Head: Atraumatic, Normacephalic Neck: Normal, Supple Chest: Symmetrical, No Tenderness Cardiovascular: Rhythm Regular, Other (BP 260/95) Respiratory: Normal Breath Sounds, No Accessory Muscle Use Gastrointestinal/Abdominal: Soft, No Tenderness, No Distention Neurological/Psych: Other (Arousable to light stimulus) Additional Physical Exam Comments: Physical exam is limited ED Course And Treatment - Laboratory Results Result Diagrams: 09/05/17 20:16 09/05/17 20:16 O2 Sat by Pulse Oximetry: 97 (Room air) Pulse Ox Interpretation: Normal - CT Scan/US CT Head Other Rad Studies (CT/US): Read By Radiologist, Radiology Report Reviewed CT/US Interpretation: HEAD W/O CONTRAST Exam Date: 09/05/17. . This imaging exam was performed at [facility]. EXAM: CT Head Without Intravenous Contrast. . EXAM DATE/TIME: 09/05/2017 7:46 PM. . CLINICAL HISTORY: 72 years old, female; Signs and symptoms; Altered mental status/memory loss;. Additional info: AMS HTN. . TECHNIQUE: Axial computed tomography images of the head/brain without intravenous. contrast. All CT scans at this facility use one or more dose reduction. techniques, viz.: automated exposure control; ma/kV adjustment per patient size. (including targeted exams where dose is matched to indication; i.e. head); or. iterative reconstruction technique. Coronal and sagittal reformatted images were created and reviewed. . COMPARISON: There are no prior studies for comparison. . FINDINGS: Brain: There is dilatation of sulci gyri and ventricles. There is no midline. shift. There is decreased attenuation in periventricular white matter. There. are no focal masses. There are no focal hemorrhages. Barksdale-white differentiation. is visualized. Ventricles: See above. Bones: Cranial vault is intact. Soft tissues: unremarkable. Sinuses: There is no acute sinusitis. Ears and mastoids: Middle ears and mastoids are unremarkable. There is debris. in the external auditory canals. Orbits: Orbital contents are unremarkable. . IMPRESSION: Atrophy and small vessel disease, no bleed Progress - Re-Evaluation Re-evaluation Note: 09/05/17 20:58 PENDING UA, CT REPORT D/W DR SCHRADER MED VIBRATOR OPERATOR AWARE OF ER FINDINGS, WILL EVAL 09/05/17 21:55 EXAM UNCH PERSIST HTN. PENDING CT REPORT - Data Reviewed Data Reviewed: Lab, Diagnostic imaging, EKG, Old records - Critical Care Citical Care: Excluding Proc Time Critical Care Time: 90 minutes - Continuity of Care Discussed patient case with:: Patient, Family-HIPPA compliant, On-call PMD-pt unassigned Medical Decision Making Medical Decision Making: Plan: * Blood work * CXR * CT Head * Urinalysis * Hydralazine Disposition Counseled Patient/Family Regarding: Studies Performed, Diagnosis - Disposition Disposition: HOSPITALIZED Disposition Time: 21:54 Condition: STABLE - POA Present On Arrival: None - Clinical Impression Clinical Impression: End-stage renal disease on hemodialysis, Altered mental state, Hypertensive emergency - Scribe Statement The provider has reviewed the documentation as recorded by the Scribsalazar Gleason All medical record entries made by the Scribe were at my direction and personally dictated by me. I have reviewed the chart and agree that the record accurately reflects my personal performance of the history, physical exam, medical decision making, and the department course for this patient. I have also personally directed, reviewed, and agree with the discharge instructions and disposition. Decision To Admit - Pt Status Changed To: Hospital Disposition Of: Inpatient - Admit Certification Admit to Inpatient:: After my assessment, the patient will require hospitalization for at least two midnights. This is because of the severity of symptoms shown, intensity of services needed, and/or the medical risk in this patient being treated as an outpatient. - InPatient: Physician Admission Certification: I certify that this patient requires 2 or more midnights of care for the following reason:: SEENOTE - . Bed Request Type: Telemetry Admitting Physician: Onur Schrader Patient Diagnosis: End-stage renal disease on hemodialysis, Altered mental state, Hypertensive emergency
[2017-09-05 20:19] LABS: EOS # 0.1 K/uL (0.0-0.7); NEUT # 3.5 K/uL (1.8-7.0); RED CELL DISTRIBUTION WIDTH 22.1 % (11.5-14.5)
[2017-09-05 20:23] LABS: BASO % 0.8 % (0.0-2.0); EOS % 1.9 % (0.0-4.0); HEMOGLOBIN 9.8 g/dL (11.0-16.0); LYMPH # 1.1 K/uL (1.0-4.3); LYMPH % 19.9 % (20.0-40.0); MEAN CORPUSCULAR HEMOGLOBIN 21.7 pg (27.0-31.0); MEAN CORPUSCULAR HGB CONC 31.2 g/dL (33.0-37.0); MEAN PLATELET VOLUME 8.4 fL (7.2-11.7); MONO # 0.9 K/uL (0.0-0.8); MONO % 15.5 % (0.0-10.0); NEUT % 61.9 % (50.0-75.0); RBC 4.53 Mil/uL (3.80-5.20); WHITE BLOOD COUNT 5.6 K/uL (4.8-10.8)
[2017-09-05 20:26] LABS: VENOUS BLOOD GAS BASE EXCESS 9.7 mmol/L (0.0-2.0); VENOUS BLOOD GAS PCO2 45 mmHg (40-60); VENOUS BLOOD GAS PO2 39 mm/Hg (30-55); VENOUS BLOOD PH 7.49 (7.32-7.43)
[2017-09-05 20:26] LABS: MEAN CELL VOLUME 69.6 fL (81.0-99.0)
[2017-09-05 20:28] LABS: INR 1.1; PROTHROMBIN TIME 12.8 SECONDS (9.7-12.2)
[2017-09-05 20:31] LABS: ALB/GLOB RATIO 1.1 (1.0-2.1); ALBUMIN 3.8 g/dL (3.5-5.0); CALCIUM 9.4 mg/dl (8.6-10.4)
[2017-09-05 20:51] LABS: TROPONIN I 0.127 ng/mL (0.00-0.120)
[2017-09-05 20:56] LABS: SQUAMOUS EPITHIAL 1 /hpf (0-5); URINE BILIRUBIN NEGATIVE (NEGATIVE); URINE BLOOD NEGATIVE (NEGATIVE); URINE CLARITY Hazy (Clear); URINE COLOR Yellow (YELLOW); URINE GLUCOSE (UA) 3+ mg/dL (Normal); URINE HYALINE CAST 0-2 /lpf (0-2); URINE LEUKOCYTE ESTERASE NEG Leu/uL (Negative); URINE PROTEIN 3+ mg/dL (NEGATIVE); URINE UROBILINOGEN NORMAL mg/dL (0.2-1.0)
[2017-09-05] MEDS ORDERED: Enalaprilat 2.5 MG/2 ML IV ONE (21:57)
[2017-09-05] MEDS ORDERED: Enalaprilat 2.5 MG/2 ML ONE (22:05)
--- NOTE | 2017-09-05 22:16 | CT ---
EXAM: CT Head Without Intravenous Contrast EXAM DATE/TIME: 09/05/2017 7:46 PM CLINICAL HISTORY: 72 years old, female; Signs and symptoms; Altered mental status/memory loss; Additional info: AMS HTN TECHNIQUE: Axial computed tomography images of the head/brain without intravenous contrast. All CT scans at this facility use one or more dose reduction techniques, viz.: automated exposure control; ma/kV adjustment per patient size (including targeted exams where dose is matched to indication; i.e. head); or iterative reconstruction technique. Coronal and sagittal reformatted images were created and reviewed. COMPARISON: There are no prior studies for comparison. FINDINGS: Brain: There is dilatation of sulci gyri and ventricles. There is no midline shift. There is decreased attenuation in periventricular white matter. There are no focal masses. There are no focal hemorrhages. Barksdale-white differentiation is visualized. Ventricles: See above. Bones: Cranial vault is intact. Soft tissues: unremarkable Sinuses: There is no acute sinusitis. Ears and mastoids: Middle ears and mastoids are unremarkable. There is debris in the external auditory canals. Orbits: Orbital contents are unremarkable. IMPRESSION: Atrophy and small vessel disease, no bleed Additional nonemergent findings as described above.
--- NOTE | 2017-09-05 22:22 | CP.PCM.HP ---
<Kody Gupta - Last Filed: 09/05/17 23:08> History of Present Illness - History of Present Illness History of Present Illness: CC: "My mother BP is too high" HPI: Mrs Lopez is a 72 year old female with a PMHx of DM2 and ESRD on HD who was brought to [facility] ER because her BP during her HD dialysis session was found to be over 200 systolic. She was given clonidine 0.2mg (twice ) during HD however there was not much improvement in the BP. In addition, her son and [id number] have noticed increasing confusion over the past two days - such as not being able to recall their names. At baseline she has some level of dementia but relatives feel she has been more forgetful and confused the past 2 days. They did not notice the patient have any focal deficits or facial droop or difficulty speaking. At baseline patient ambulates without assistance. ED Course: Hydralazine, Enalaprilat, CT Head, EKG, CXR, Blood Cx, Urine Cx, UA PMD: Dr Cheung ([place]) PMHx: DM2 w/ ESRD on HD TTS PSHx: renal biopsy 2015, bone marrow biopsy 2013, colonoscopy 2013 Allergies: NKA Home meds: Calcium Acetate 1334mg PO TID, Hydralazine 25mg PO QID, Norvasc 10mg PO QD, Lasix 40mg PO QD FamHx: Denies SocialHx: Denied hx of tobacco, alcohol or illicit drug use; lives with son at home Present on Admission - Present on Admission Any Indicators Present on Admission: No Review of Systems - Constitutional Constitutional: Fever, Headache, Weakness. absent: Chills, Lethargy, Weight Gain - EENT Eyes: absent: Change in Vision - Cardiovascular Cardiovascular: Chest Pain with Activity. absent: Chest Pain, Dyspnea, Lightheadedness, Palpitations - Respiratory Respiratory: absent: Cough, Dyspnea, Dyspnea on Exertion, Wheezing, Stridor - Gastrointestinal Gastrointestinal: absent: Abdominal Pain, Bloating, Constipation, Diarrhea - Genitourinary Genitourinary: absent: Dysuria Additional comments: Patient still makes urine - Musculoskeletal Musculoskeletal: absent: Arthralgias - Integumentary Integumentary: absent: Bleeding Lesions - Neurological Neurological: Confusion. absent: Dizziness, Numbness, Focal Weakness, Loss of Vision, Paresthesias, Sensory Deficit Past Patient History - Tetanus Immunizations Tetanus Immunization: Unknown - Past Medical History & Family History Past Medical History?: Yes - Past Social History Smoking Status: Former Smoker - CARDIAC Hx Hypercholesterolemia: Yes Hx Hypertension: Yes - PULMONARY Hx Respiratory Disorders: No - NEUROLOGICAL Hx Neurological Disorder: No - HEENT Hx HEENT Problems: Yes Hx Cataracts: Yes (bilat iol) - RENAL Hx Chronic Kidney Disease: Yes - ENDOCRINE/METABOLIC Hx Endocrine Disorders: Yes Hx Diabetes Mellitus Type 2: Yes - HEMATOLOGICAL/ONCOLOGICAL Hx Anemia: Yes - INTEGUMENTARY Hx Dermatological Problems: No - MUSCULOSKELETAL/RHEUMATOLOGICAL Hx Musculoskeletal Disorders: Yes Hx Gout: Yes Hx Osteoarthritis: Yes - GASTROINTESTINAL Hx Gastrointestinal Disorders: No - GENITOURINARY/GYNECOLOGICAL Hx Genitourinary Disorders: No - PSYCHIATRIC Hx Substance Use: No - SURGICAL HISTORY Hx Surgeries: Yes Hx Cataract Extraction: Yes Other/Comment: perma cath insertion - ANESTHESIA Hx Anesthesia: Yes Hx Anesthesia Reactions: No Hx Malignant Hyperthermia: No Meds Allergies/Adverse Reactions: Allergies Allergy/AdvReac Type Severity Reaction Status Date / Time No Known Allergies Allergy Verified 11/11/16 17:27 Physical Exam - Constitutional Appears: No Acute Distress, Confused, Chronically Ill - Head Exam Head Exam: ATRAUMATIC, NORMAL INSPECTION - Eye Exam Eye Exam: EOMI Pupil Exam: PERRL - ENT Exam ENT Exam: Mucous Membranes Moist - Neck Exam Neck exam: Positive for: Normal Inspection. Negative for: Lymphadenopathy - Respiratory Exam Respiratory Exam: Clear to Auscultation Bilateral, NORMAL BREATHING PATTERN. absent: Rales, Rhonchi, Wheezes, Stridor - Cardiovascular Exam Cardiovascular Exam: REGULAR RHYTHM, +S1, +S2. absent: JVD, Systolic Murmur - GI/Abdominal Exam GI & Abdominal Exam: Normal Bowel Sounds, Soft. absent: Distended, Firm, Guarding, Hernia, Rebound - Rectal Exam Rectal Exam: Deferred - Extremities Exam Extremities exam: Positive for: normal capillary refill, normal inspection, pedal pulses present. Negative for: pedal edema, tenderness - Back Exam Back exam: NORMAL INSPECTION. absent: CVA tenderness (L), CVA tenderness (R) - Neurological Exam Neurological exam: CN II-XII Intact, Reflexes Normal Additional comments: Awake, Alert but only oriented to self Patient not able to name hospital however son states she would not know anyway sensation intact no facial asymmetry left leg weakness but unsure if patient not complying with exam or real deficit - otherwise motor function normal no difficulty speaking some difficulty with finger nose exam - Skin Skin Exam: Intact, Normal Color, Warm Results - Vital Signs Recent Vital Signs: Last Vital Signs Temp 99.9 F H 09/05/17 21:30 Pulse 86 09/05/17 21:30 Resp 18 09/05/17 21:30 BP 238/97 H 09/05/17 22:09 Pulse Ox 97 09/05/17 21:56 - Labs Result Diagrams: 09/05/17 20:16 09/05/17 20:16 Labs: Laboratory Results - last 24 hr 09/05/17 09/05/17 09/05/17 20:15 20:16 20:16 WBC 5.6 RBC 4.53 Hgb 9.8 L Hct 31.5 L MCV 69.6 L D MCH 21.7 L MCHC 31.2 L RDW 22.1 H Plt Count 198 MPV 8.4 Neut % (Auto) 61.9 Lymph % (Auto) 19.9 L [place] % (Auto) 15.5 H Eos % (Auto) 1.9 Baso % (Auto) 0.8 Neut # (Auto) 3.5 Lymph # (Auto) 1.1 [place] # (Auto) 0.9 H Eos # (Auto) 0.1 Baso # (Auto) 0.0 Differential Comment PT 12.8 H INR 1.1 APTT 32 pO2 39 VBG pH 7.49 H VBG pCO2 45 VBG HCO3 32.0 VBG Total CO2 35.7 H VBG O2 Sat (Calc) 79.8 H VBG Base Excess 9.7 H VBG Potassium 3.3 L Sodium 142.0 Chloride 102.0 Glucose 142 H Lactate 0.9 FiO2 21.0 Potassium Carbon Dioxide Anion Gap BUN Creatinine Est GFR ( Amer) Est GFR (Non-Af Amer) Random Glucose Calcium Total Bilirubin AST ALT Alkaline Phosphatase Troponin I Total Protein Albumin Globulin Albumin/Globulin Ratio Venous Blood Potassium 3.3 L Urine Color Urine Clarity Urine pH Ur Specific [place] Urine Protein Urine Glucose (UA) Urine Ketones Urine Blood Urine Nitrate Urine Bilirubin Urine Urobilinogen Ur Leukocyte Esterase Urine WBC (Auto) Urine RBC (Auto) Ur Squamous Epith Cells Hyaline Casts 09/05/17 09/05/17 20:16 20:31 WBC RBC Hgb Hct MCV MCH MCHC RDW Plt Count MPV Neut % (Auto) Lymph % (Auto) [place] % (Auto) Eos % (Auto) Baso % (Auto) Neut # (Auto) Lymph # (Auto) [place] # (Auto) Eos # (Auto) Baso # (Auto) Differential Comment PT INR APTT pO2 VBG pH VBG pCO2 VBG HCO3 VBG Total CO2 VBG O2 Sat (Calc) VBG Base Excess VBG Potassium Sodium 140 Chloride 95 L Glucose Lactate FiO2 Potassium 3.3 L Carbon Dioxide 29 Anion Gap 20 BUN 19 H Creatinine 4.9 H Est GFR ( Amer) 10 Est GFR (Non-Af Amer) 9 Random Glucose 144 H Calcium 9.4 Total Bilirubin 0.8 AST 19 ALT 14 Alkaline Phosphatase 79 Troponin I 0.1270 H* Total Protein 7.3 Albumin 3.8 Globulin 3.5 Albumin/Globulin Ratio 1.1 Venous Blood Potassium Urine Color Yellow Urine Clarity Hazy Urine pH 8.0 Ur Specific [place] 1.015 Urine Protein 3+ H Urine Glucose (UA) 3+ H Urine Ketones Negative Urine Blood Negative Urine Nitrate Negative Urine Bilirubin Negative Urine Urobilinogen Normal Ur Leukocyte Esterase Neg Urine WBC (Auto) 1 Urine RBC (Auto) 2 Ur Squamous Epith Cells 1 Hyaline Casts 0-2 Assessment & Plan (1) Altered mental state Assessment and Plan: Patient has baseline dementia equivocal neurological exam Neurology consult, Dr Pierce * Currently suspects Hypertensive Encephalopathy Neuro checks Q4H ASA 81mg PO QD F/U Blood Cx, Urine Cx F/U B12, TSH, Folate, Lipid Panel Imaging: CT head w/o contrast: Atrophy and small vessel disease, no bleed F/U MRI Brain w/o contast: Status: Acute Priority: High (2) Hypertensive emergency Assessment and Plan: BP elevated Cont home med Norvasc 10mg PO QD Cont home med Lasix 40mg PO QD Cont home med Hydralazine 25mg PO QID Status: Acute Priority: High (3) NSTEMI (non-ST elevated myocardial infarction) Assessment and Plan: No chest pain or palpitations Likely related to HTN emergency SAMPSON Elevated 0.1270 F/U serial SAMPSON, EKG F/U Lipid Panel F/U ECHO Status: Acute Priority: High (4) End-stage renal disease on hemodialysis Assessment and Plan: Nephrology consult, Dr Lukas Borrego HD TTS Accuchecks ISS - medium dose Diabetic diet w/ salt restriction Cont home med Calcium Acetate 1334mg PO TID Status: Chronic Priority: High (5) Type 2 diabetes mellitus Assessment and Plan: Accuchecks ISS - medium dose Diabetic Diet Status: Chronic Priority: High (6) Prophylactic measure Assessment and Plan: SCDs, Lovenox 40mg SC QD GI prophylaxis not indicated Diabetic diet w/ salt restriction Status: Acute Priority: Low <Onur Gates P - Last Filed: 09/06/17 07:02> Results - Vital Signs Recent Vital Signs: Last Vital Signs Temp 98.1 F 09/06/17 03:50 Pulse 80 09/06/17 03:50 Resp 18 09/06/17 03:50 BP 216/90 H 09/06/17 03:50 Pulse Ox 99 09/06/17 03:50 - Labs Result Diagrams: 09/05/17 20:16 09/05/17 20:16 Labs: Laboratory Results - last 24 hr 09/05/17 09/05/17 09/05/17 20:15 20:16 20:16 WBC 5.6 RBC 4.53 Hgb 9.8 L Hct 31.5 L MCV 69.6 L D MCH 21.7 L MCHC 31.2 L RDW 22.1 H Plt Count 198 MPV 8.4 Neut % (Auto) 61.9 Lymph % (Auto) 19.9 L [place] % (Auto) 15.5 H Eos % (Auto) 1.9 Baso % (Auto) 0.8 Neut # (Auto) 3.5 Lymph # (Auto) 1.1 [place] # (Auto) 0.9 H Eos # (Auto) 0.1 Baso # (Auto) 0.0 Differential Comment PT 12.8 H INR 1.1 APTT 32 pO2 39 VBG pH 7.49 H VBG pCO2 45 VBG HCO3 32.0 VBG Total CO2 35.7 H VBG O2 Sat (Calc) 79.8 H VBG Base Excess 9.7 H VBG Potassium 3.3 L Sodium 142.0 Chloride 102.0 Glucose 142 H Lactate 0.9 FiO2 21.0 Potassium Carbon Dioxide Anion Gap BUN Creatinine Est GFR ( Amer) Est GFR (Non-Af Amer) Random Glucose Calcium Total Bilirubin AST ALT Alkaline Phosphatase Total Creatine Kinase CK-MB (Mass) Troponin I Total Protein Albumin Globulin Albumin/Globulin Ratio Venous Blood Potassium 3.3 L Urine Color Urine Clarity Urine pH Ur Specific [place] Urine Protein Urine Glucose (UA) Urine Ketones Urine Blood Urine Nitrate Urine Bilirubin Urine Urobilinogen Ur Leukocyte Esterase Urine WBC (Auto) Urine RBC (Auto) Ur Squamous Epith Cells Hyaline Casts 09/05/17 09/05/17 09/06/17 20:16 20:31 03:13 WBC RBC Hgb Hct MCV MCH MCHC RDW Plt Count MPV Neut % (Auto) Lymph % (Auto) [place] % (Auto) Eos % (Auto) Baso % (Auto) Neut # (Auto) Lymph # (Auto) [place] # (Auto) Eos # (Auto) Baso # (Auto) Differential Comment PT INR APTT pO2 VBG pH VBG pCO2 VBG HCO3 VBG Total CO2 VBG O2 Sat (Calc) VBG Base Excess VBG Potassium Sodium 140 Chloride 95 L Glucose Lactate FiO2 Potassium 3.3 L Carbon Dioxide 29 Anion Gap 20 BUN 19 H Creatinine 4.9 H Est GFR ( Amer) 10 Est GFR (Non-Af Amer) 9 Random Glucose 144 H Calcium 9.4 Total Bilirubin 0.8 AST 19 ALT 14 Alkaline Phosphatase 79 Total Creatine Kinase 46 CK-MB (Mass) 0.83 Troponin I 0.1270 H* 0.1440 H* Total Protein 7.3 Albumin 3.8 Globulin 3.5 Albumin/Globulin Ratio 1.1 Venous Blood Potassium Urine Color Yellow Urine Clarity Hazy Urine pH 8.0 Ur Specific [place] 1.015 Urine Protein 3+ H Urine Glucose (UA) 3+ H Urine Ketones Negative Urine Blood Negative Urine Nitrate Negative Urine Bilirubin Negative Urine Urobilinogen Normal Ur Leukocyte Esterase Neg Urine WBC (Auto) 1 Urine RBC (Auto) 2 Ur Squamous Epith Cells 1 Hyaline Casts 0-2 Attending/Attestation - Attestation I have personally seen and examined this patient.: Yes I have fully participated in the care of the patient.: Yes I have reviewed all pertinent clinical information: Yes Notes (Text): Assessment * HTN urgency, suspect lacunar infarct on CT on left side in thalamus-midbrain junct, symptoms of pt not being self for about 1wk, no focal weakness, but had difficulties in following 2step commands, pt has b/l baseline dementia, but has been ambulating, eating doing ADLS * ESRD on hd * borderline dm Plan * Bring BP about 25% lower * MRI to confirm * Continue hd as scheduled * Added labetalol, has received prn enalpril, nitro paste, iv hydralazine * Echo, carotid doppler * ASA, statin * Neuro check * Neurology consult. * GI/DVT prophylaxis * See orders for detail.
[2017-09-05] MEDS ORDERED: Potassium Chloride 20 mEq ER Tab PO ONE ×2 (22:45→23:25)
[2017-09-05] MEDS ORDERED: Nitroglycerin 2% Ointment Foilpak UD TOP ONE ×2 (23:37→23:42)
[2017-09-06] MEDS ORDERED: Labetalol 5 mg/ml Inj 20ML IV STA (00:06)
[2017-09-06 04:59] LABS: CK-MB 0.83 ng/mL (0.0-3.38); TROPONIN I 0.144 ng/mL (0.00-0.120)
--- NOTE | 2017-09-06 08:14 | CP.PCM.CON ---
History of Present Illness - History of Present Illness History of Present Illness: Mrs Lopez is a 72 year old female with a PMHx of DM2 and ESRD on HD who was brought to [facility] because her BP during her HD dialysis session was found to be over 200 systolic. She was given clonidine 0.2mg (twice ) during HD however there was not much improvement in the BP. In addition, her son and [id number]-bsl have noticed increasing confusion over the past two days such as not being able to recall their names. At baseline she has some level of dementia but relatives feel she has been more forgetful and confused the past 2 days. They did not notice the patient have any focal deficits or facial droop or difficulty speaking. At present, she is able to verbalize her name, place but not time. She denies any headache, dizziness, lightheadedness, nausea, or vomiting. CT scan of the head 09/05/2017 showed atrophy and small vessel, no bleed. Her blood pressure has been elevated overnight, currently on bunch of anti-hypertensive medications. Review of Systems - Review of Systems All systems: reviewed and no additional remarkable complaints except Past Patient History - Tetanus Immunizations Tetanus Immunization: Unknown - Past Medical History & Family History Past Medical History?: Yes - Past Social History Smoking Status: Former Smoker - CARDIAC Hx Hypercholesterolemia: Yes Hx Hypertension: Yes - PULMONARY Hx Respiratory Disorders: No - NEUROLOGICAL Hx Neurological Disorder: No - HEENT Hx HEENT Problems: Yes Hx Cataracts: Yes (bilat iol) - RENAL Hx Chronic Kidney Disease: Yes - ENDOCRINE/METABOLIC Hx Endocrine Disorders: Yes Hx Diabetes Mellitus Type 2: Yes - HEMATOLOGICAL/ONCOLOGICAL Hx Anemia: Yes - INTEGUMENTARY Hx Dermatological Problems: No - MUSCULOSKELETAL/RHEUMATOLOGICAL Hx Falls: No - GASTROINTESTINAL Hx Gastrointestinal Disorders: No - GENITOURINARY/GYNECOLOGICAL Hx Genitourinary Disorders: No - PSYCHIATRIC Hx Substance Use: No - SURGICAL HISTORY Hx Surgeries: Yes Hx Cataract Extraction: Yes Other/Comment: perma cath insertion - ANESTHESIA Hx Anesthesia: Yes Hx Anesthesia Reactions: No Hx Malignant Hyperthermia: No Meds Allergies/Adverse Reactions: Allergies Allergy/AdvReac Type Severity Reaction Status Date / Time No Known Allergies Allergy Verified 11/11/16 17:27 - Medications Medications: Current Medications Amlodipine Besylate (Norvasc) 10 mg PO DAILY [facility] Aspirin (Aspirin Chewable) 81 mg PO DAILY [facility] Calcium Acetate (Phoslo) 1,334 mg PO TID [facility] Enoxaparin Sodium (Lovenox) 30 mg SC DAILY [facility] Furosemide (Lasix) 40 mg PO DAILY [facility] Hydralazine HCl (Apresoline) 25 mg PO QID [facility] Insulin Human Regular (Novolin R) 0 unit SC ACHS [facility] PRN Reason: Protocol Labetalol HCl (Trandate) 100 mg PO Q8H [facility] Last Admin: 09/06/17 04:14 Dose: 100 mg Pneumococcal Polyvalent Vaccine (Pneumovax 23 Vaccine) 0.5 ml IM .ONCE ONE Stop: 09/08/17 10:01 Rosuvastatin Calcium (Crestor) 5 mg PO [facility] Last Admin: 09/05/17 23:32 Dose: 5 mg Physical Exam - Constitutional Appears: No Acute Distress - Head Exam Head Exam: NORMAL INSPECTION - Eye Exam Pupil Exam: PERRL - ENT Exam ENT Exam: Mucous Membranes Moist, Normal Exam - Neck Exam Neck exam: Positive for: Normal Inspection - Respiratory Exam Respiratory Exam: Clear to Auscultation Bilateral, NORMAL BREATHING PATTERN - Cardiovascular Exam Cardiovascular Exam: +S1, +S2 - GI/Abdominal Exam GI & Abdominal Exam: Normal Bowel Sounds, Soft - Extremities Exam Additional comments: Lower extremities weakness - Neurological Exam Neurological exam: Alert - Expanded Neurological Exam Expanded Patient oriented to: person, place Cranial nerves: EOM's Intact: Normal Ataxia: No Cerebellar Function: Finger to Nose: Normal Upper motor neuron: Pronator Drift: Normal Sensory exam: Lower Extremity 2 Point Discrimination: Normal, Lower Extremity Light Touch: Normal, Lower Extremity Pin Prick: Normal, Lower Extremity Temperature: Normal, Upper Extremity Light Touch: Normal, Upper Extremity Pin Prick: Normal, Upper Extremity Temperature: Normal Neuro motor strength exam: Left Upper Extremity: 4, Right Upper Extremity: 4, Left Lower Extremity: 3, Right Lower Extremity: 3 Coma Scale Eye Opening: To Voice Results - Vital Signs Recent Vital Signs: Last Vital Signs Temp 98.1 F 09/06/17 03:50 Pulse 80 09/06/17 03:50 Resp 18 09/06/17 03:50 BP 216/90 H 09/06/17 03:50 Pulse Ox 99 09/06/17 03:50 - Labs Result Diagrams: 09/05/17 20:16 09/05/17 20:16 Labs: Laboratory Results - last 24 hr 09/05/17 09/05/17 09/05/17 20:15 20:16 20:16 WBC 5.6 RBC 4.53 Hgb 9.8 L Hct 31.5 L MCV 69.6 L D MCH 21.7 L MCHC 31.2 L RDW 22.1 H Plt Count 198 MPV 8.4 Neut % (Auto) 61.9 Lymph % (Auto) 19.9 L [place] % (Auto) 15.5 H Eos % (Auto) 1.9 Baso % (Auto) 0.8 Neut # (Auto) 3.5 Lymph # (Auto) 1.1 [place] # (Auto) 0.9 H Eos # (Auto) 0.1 Baso # (Auto) 0.0 Differential Comment PT 12.8 H INR 1.1 APTT 32 pO2 39 VBG pH 7.49 H VBG pCO2 45 VBG HCO3 32.0 VBG Total CO2 35.7 H VBG O2 Sat (Calc) 79.8 H VBG Base Excess 9.7 H VBG Potassium 3.3 L Sodium 142.0 Chloride 102.0 Glucose 142 H Lactate 0.9 FiO2 21.0 Potassium Carbon Dioxide Anion Gap BUN Creatinine Est GFR ( Amer) Est GFR (Non-Af Amer) Random Glucose Calcium Total Bilirubin AST ALT Alkaline Phosphatase Total Creatine Kinase CK-MB (Mass) Troponin I Total Protein Albumin Globulin Albumin/Globulin Ratio Venous Blood Potassium 3.3 L Urine Color Urine Clarity Urine pH Ur Specific [place] Urine Protein Urine Glucose (UA) Urine Ketones Urine Blood Urine Nitrate Urine Bilirubin Urine Urobilinogen Ur Leukocyte Esterase Urine WBC (Auto) Urine RBC (Auto) Ur Squamous Epith Cells Hyaline Casts 09/05/17 09/05/17 09/06/17 20:16 20:31 03:13 WBC RBC Hgb Hct MCV MCH MCHC RDW Plt Count MPV Neut % (Auto) Lymph % (Auto) [place] % (Auto) Eos % (Auto) Baso % (Auto) Neut # (Auto) Lymph # (Auto) [place] # (Auto) Eos # (Auto) Baso # (Auto) Differential Comment PT INR APTT pO2 VBG pH VBG pCO2 VBG HCO3 VBG Total CO2 VBG O2 Sat (Calc) VBG Base Excess VBG Potassium Sodium 140 Chloride 95 L Glucose Lactate FiO2 Potassium 3.3 L Carbon Dioxide 29 Anion Gap 20 BUN 19 H Creatinine 4.9 H Est GFR ( Amer) 10 Est GFR (Non-Af Amer) 9 Random Glucose 144 H Calcium 9.4 Total Bilirubin 0.8 AST 19 ALT 14 Alkaline Phosphatase 79 Total Creatine Kinase 46 CK-MB (Mass) 0.83 Troponin I 0.1270 H* 0.1440 H* Total Protein 7.3 Albumin 3.8 Globulin 3.5 Albumin/Globulin Ratio 1.1 Venous Blood Potassium Urine Color Yellow Urine Clarity Hazy Urine pH 8.0 Ur Specific [place] 1.015 Urine Protein 3+ H Urine Glucose (UA) 3+ H Urine Ketones Negative Urine Blood Negative Urine Nitrate Negative Urine Bilirubin Negative Urine Urobilinogen Normal Ur Leukocyte Esterase Neg Urine WBC (Auto) 1 Urine RBC (Auto) 2 Ur Squamous Epith Cells 1 Hyaline Casts 0-2 Assessment & Plan (1) Encephalopathy acute Assessment and Plan: Case discussed Dr. Pierce: Patient has baseline dementia with an equivocal neurological exam. Recommend the following 1. Telemetry monitoring 2. MRI of the brain without contrast, MRA of the head and neck. 3. Echocardiogram 4. PT, OT eval and treat 5. Blood pressure control 6. Case management consult. Status: Acute
[2017-09-06] MEDS: (Novolin R) Insulin Human Regular 100 units/ml vial SC SCH ×4 (08:37→21:20)
--- NOTE | 2017-09-06 08:40 | RAD ---
PROCEDURE: CHEST RADIOGRAPH, 1 VIEW HISTORY: AMS COMPARISON: Chest radiograph dated 11/11/2016. FINDINGS: LUNGS: Clear. PLEURA: No pneumothorax or pleural fluid seen. CARDIOVASCULAR: Atherosclerotic aortic calcifications. Cardiomediastinal silhouette unchanged. OSSEOUS STRUCTURES: Unchanged. VISUALIZED UPPER ABDOMEN: Normal. OTHER FINDINGS: Right internal jugular access tunneled hemodialysis catheter, unchanged. IMPRESSION: No active disease.
[2017-09-06 09:10] LABS: BASO # 0.1 K/uL (0.0-0.2); BASO % 1.1 % (0.0-2.0); EOS # 0.1 K/uL (0.0-0.7); EOS % 1.5 % (0.0-4.0); HEMOGLOBIN 10.7 g/dL (11.0-16.0); LYMPH # 1.3 K/uL (1.0-4.3); LYMPH % 25.9 % (20.0-40.0); MEAN CELL VOLUME 69.3 fL (81.0-99.0); MEAN CORPUSCULAR HEMOGLOBIN 21.9 pg (27.0-31.0); MEAN CORPUSCULAR HGB CONC 31.6 g/dL (33.0-37.0); MEAN PLATELET VOLUME 8.5 fL (7.2-11.7); MONO # 0.7 K/uL (0.0-0.8); MONO % 13.6 % (0.0-10.0); NEUT % 57.9 % (50.0-75.0); NRBC % 0.2 % (0.0-2.0); RBC 4.9 Mil/uL (3.80-5.20); RED CELL DISTRIBUTION WIDTH 21.9 % (11.5-14.5); WHITE BLOOD COUNT 5.1 K/uL (4.8-10.8)
[2017-09-06 09:22] LABS: ALB/GLOB RATIO 1.2 (1.0-2.1); ALBUMIN 4.2 g/dL (3.5-5.0); CALCIUM 9.6 mg/dl (8.6-10.4)
[2017-09-06] MEDS: Enoxaparin 30 mg Syringe SC SCH (09:25)
[2017-09-06 09:35] LABS: CK-MB 0.89 ng/mL (0.0-3.38); TROPONIN I 0.129 ng/mL (0.00-0.120)
--- NOTE | 2017-09-06 09:49 | CP.PCM.PN ---
<Karissa Park - Last Filed: 09/06/17 10:47> Subjective - Date & Time of Evaluation Date of Evaluation: 09/06/17 Time of Evaluation: 09:00 - Subjective Subjective: Medicine Note for Hospitalist Service- Dr. Singh Patient was seen and examined at bedside. She is alert, awake, she is oriented to person, not place or time. She is unsure why she is here in the hospital. 12 point ROS unremarkable. Objective - Vital Signs/Intake and Output Vital Signs (last 24 hours): Temp Pulse Resp BP Pulse Ox 99.1 F 84 20 189/99 H 99 09/06/17 07:00 09/06/17 07:09 09/06/17 07:00 09/06/17 09:25 09/06/17 07:00 - Medications Medications: Current Medications Amlodipine Besylate (Norvasc) 10 mg PO DAILY [facility] Last Admin: 09/06/17 09:26 Dose: 10 mg Aspirin (Aspirin Chewable) 81 mg PO DAILY [facility] Last Admin: 09/06/17 09:23 Dose: 81 mg Calcium Acetate (Phoslo) 1,334 mg PO TID [facility] Last Admin: 09/06/17 09:23 Dose: 1,334 mg Enoxaparin Sodium (Lovenox) 30 mg SC DAILY [facility] Last Admin: 09/06/17 09:25 Dose: 30 mg Furosemide (Lasix) 40 mg PO DAILY [facility] Last Admin: 09/06/17 09:25 Dose: 40 mg Hydralazine HCl (Apresoline) 25 mg PO QID [facility] Last Admin: 09/06/17 09:29 Dose: 25 mg Hydralazine HCl (Apresoline) 10 mg IVP Q6H PRN PRN Reason: HTN Insulin Human Regular (Novolin R) 0 unit SC [facility] PRN Reason: Protocol Last Admin: 09/06/17 08:37 Dose: Not Given Labetalol HCl (Trandate) 100 mg PO Q8H [facility] Last Admin: 09/06/17 04:14 Dose: 100 mg Pneumococcal Polyvalent Vaccine (Pneumovax 23 Vaccine) 0.5 ml IM .ONCE ONE Stop: 09/08/17 10:01 Quetiapine Fumarate (Seroquel) 25 mg PO ONCE ONE Stop: 09/06/17 10:01 Last Admin: 09/06/17 09:27 Dose: 25 mg Rosuvastatin Calcium (Crestor) 20 mg PO HS [facility] - Labs Labs: 09/06/17 08:55 09/06/17 08:55 PT 12.8 SECONDS (9.7-12.2) H 09/05/17 20:16 INR 1.1 09/05/17 20:16 APTT 32 SECONDS (21-34) 09/05/17 20:16 - Constitutional Appears: No Acute Distress, Confused - Head Exam Head Exam: NORMAL INSPECTION, NORMOCEPHALIC - Eye Exam Eye Exam: EOMI, Normal appearance, PERRL Pupil Exam: NORMAL ACCOMODATION - ENT Exam ENT Exam: Mucous Membranes Moist, Normal Exam - Neck Exam Neck Exam: Normal Inspection - Respiratory Exam Respiratory Exam: Clear to Ausculation Bilateral, NORMAL BREATHING PATTERN. absent: Decreased Breath Sounds, Wheezes - Cardiovascular Exam Cardiovascular Exam: REGULAR RHYTHM, RRR, +S1, +S2 - GI/Abdominal Exam GI & Abdominal Exam: Soft, Normal Bowel Sounds. absent: Distended, Tenderness - Rectal Exam Rectal Exam: Deferred - Extremities Exam Extremities Exam: Normal Inspection. absent: Pedal Edema, Tenderness - Neurological Exam Neurological Exam: Alert, Awake. absent: Oriented x3 Neuro motor strength exam: Left Upper Extremity: 5, Right Upper Extremity: 5, Left Lower Extremity: 5, Right Lower Extremity: 5 - Psychiatric Exam Psychiatric exam: Normal Affect, Normal Mood - Skin Skin Exam: Dry, Intact, Normal Color, Warm Assessment and Plan - Assessment and Plan (Free Text) Plan: Altered mental state Assessment and Plan: Neurology consult, Dr Pierce - help appreciated Currently suspects Hypertensive Encephalopathy Patient has baseline dementia Equivocal neurological exam Neuro checks Q4H F/U Blood Cx, Urine Cx F/U B12, Folate Imaging: CT head w/o contrast: Atrophy and small vessel disease, no bleed F/U MRI Brain w/o contast F/U MRA Head and Neck Meds: ASA 81mg PO QD Crestor 20mg PO QHS Hypertensive emergency Assessment and Plan: On admission: 260/115 Currently 190/99 Cont home med Norvasc 10mg PO QD Cont home med Lasix 40mg PO QD Hydralazine 50mg PO QID (will need to increase) Started on Labetalol 100mg PO Q8H Elevated Troponins Likely 2/2 ESRD Assessment and Plan: No chest pain or palpitations Likely related to HTN emergency ROMIx 3 Elevated: 0.1270 --> 0.1440--> 0.1290 Lipid Panel- WNL F/U Free T4 F/U ECHO ESRD on hemodialysis Assessment and Plan: Nephrology consult, Dr Lukas Borrego - help appreciated HD TTS Cont home med Calcium Acetate 1334mg PO TID Type 2 Diabetes Mellitus Assessment and Plan: Accuchecks ISS - medium dose Diabetic Diet Crestor 20mg PO QHS Prophylactic Measures Assessment and Plan: GI prophylaxis not indicated SCDs, Lovenox 40mg SC QD Diabetic diet w/ salt restriction DW Dr. Singh, Karissa Park DO, PGY-1 <Tadeo Singh H - Last Filed: 09/06/17 15:44> Objective - Vital Signs/Intake and Output Vital Signs (last 24 hours): Temp Pulse Resp BP Pulse Ox 99.1 F 103 H 20 247/117 H 99 09/06/17 07:00 09/06/17 10:58 09/06/17 07:00 09/06/17 10:58 09/06/17 07:00 - Medications Medications: Current Medications Amlodipine Besylate (Norvasc) 10 mg PO DAILY [facility] Last Admin: 09/06/17 09:26 Dose: 10 mg Aspirin (Aspirin Chewable) 81 mg PO DAILY [facility] Last Admin: 09/06/17 09:23 Dose: 81 mg Calcium Acetate (Phoslo) 1,334 mg PO TID [facility] Last Admin: 09/06/17 15:00 Dose: 1,334 mg Enoxaparin Sodium (Lovenox) 30 mg SC DAILY [facility] Last Admin: 09/06/17 09:25 Dose: 30 mg Furosemide (Lasix) 40 mg PO DAILY [facility] Last Admin: 09/06/17 09:25 Dose: 40 mg Hydralazine HCl (Apresoline) 10 mg IVP Q6H PRN PRN Reason: HTN Hydralazine HCl (Apresoline) 50 mg PO QID [facility] Last Admin: 09/06/17 15:00 Dose: 50 mg Insulin Human Regular (Novolin R) 0 unit SC [facility] PRN Reason: Protocol Last Admin: 09/06/17 12:03 Dose: Not Given Labetalol HCl (Trandate) 100 mg PO Q8H [facility] Last Admin: 09/06/17 11:12 Dose: 100 mg Pneumococcal Polyvalent Vaccine (Pneumovax 23 Vaccine) 0.5 ml IM .ONCE ONE Stop: 09/08/17 10:01 Rosuvastatin Calcium (Crestor) 20 mg PO HS [facility] - Labs Labs: 09/06/17 08:55 09/06/17 08:55 PT 12.8 SECONDS (9.7-12.2) H 09/05/17 20:16 INR 1.1 09/05/17 20:16 APTT 32 SECONDS (21-34) 09/05/17 20:16 Attending/Attestation - Attestation I have personally seen and examined this patient.: Yes I have fully participated in the care of the patient.: Yes I have reviewed all pertinent clinical information, including history, physical exam and plan: Yes Notes (Text): 09/06/17 15:44 Medical attending: Patient was seen and examined by me with the medical observer. Reviewed the above note by the resident and agree with the above. This is a patient who was brought in with hypertensive urgency/emergency while at hemodialysis. According to the family member she's been altered mental status for about 2 days now. She does have some baseline dementia from what I understand. When we came and saw her she was not in any acute distress. She is very pleasant talk to however after some conversation it became apparent that she does have some dementia. She is aware of person and place At this time we do have her on Norvasc, hydralazine, and labetalol. And her blood pressure still remains elevated. Were pending and echo at this moment, neurology has also ordered an MRI studies to assess for possibility of stroke. Thank you very much, Tadeo Singh
[2017-09-06] MEDS ORDERED: QUEtiapine 12.5 MG TAB PO ONE (10:00)
[2017-09-06] MEDS ORDERED: Enoxaparin 40 mg Syringe SC SCH (10:00)
[2017-09-06 10:31] LABS: FOLATE 11.6 ng/mL
--- NOTE | 2017-09-06 16:55 | MRI ---
PROCEDURE: MRI BRAIN WITHOUT CONTRAST HISTORY: AMS COMPARISON: Noncontrast head CT from 09/05/2017. TECHNIQUE: Multiplanar, multisequence MR images of the brain were obtained without intravenous contrast enhancement. Examination is of suboptimal diagnostic quality due to patient motion. FINDINGS: HEMORRHAGE: None DWI: No evidence of an acute or early subacute infarction. BRAIN PARENCHYMA: There are moderate chronic microangiopathic changes. There is no mass, mass effect or abnormal extra-axial fluid collection. VENTRICLES: There is moderate age-related global parenchymal volume loss and proportionate enlargement of the ventricles and cortical sulci. CRANIUM: There is normal bone marrow signal pattern. ORBITS: Grossly unremarkable. PARANASAL SINUSES/MASTOIDS: Clear VASCULAR SYSTEM: Skull base flow voids intact. OTHER FINDINGS: None. IMPRESSION: Suboptimal diagnostic quality due to patient motion. No acute intracranial abnormality. Moderate chronic microangiopathic changes and moderate age-related global parenchymal volume loss.
--- NOTE | 2017-09-06 16:59 | MRI ---
PROCEDURE: Magnetic Resonance Angiography Brain HISTORY: AMS COMPARISON: None available. TECHNIQUE: 3D time of flight MR angiography of the intracranial arteries was performed. Rotating maximum intensity projection images were generated. FINDINGS: INTERNAL CAROTID ARTERIES: Normal flow related signal. The skull base, petrous, cavernous and supraclinoid segments are bilaterally widely patient. ANTERIOR CEREBRAL ARTERIES: Normal flow related signal. A1 and A2 segments are widely patent. Smaller distal branches unremarkable, as visualized. MIDDLE CEREBRAL ARTERIES: Normal flow related signal. M1 and M2 segments are widely patent. Perisylvian branches grossly symmetric. POSTERIOR CIRCULATION: Basilar Artery: Normal flow related signal. Distal Vertebral Arteries: Normal flow related signal. The right vertebral artery is dominant, an anatomic variant. Posterior Cerebral Arteries: Normal flow related signal. Posterior Inferior Cerebellar Arteries: Normal flow related signal. ANEURYSM/ VASCULAR MALFORMATIONS: None. OTHER FINDINGS: None. IMPRESSION: Normal MR angiography of the brain.
--- NOTE | 2017-09-06 17:01 | MRI ---
PROCEDURE: MR Angiography of the neck without contrast HISTORY: AMS COMPARISON: None available. TECHNIQUE: 3D [id number] angiography of the neck was performed. Rotating maximum intensity projection images of the cervical carotid and vertebral arteries were generated. The origins of the common carotid arteries were not visualized, which is a limitation inherent to the non-contrast time of flight technique. FINDINGS: RIGHT CAROTID ARTERIES: Common Carotid Artery: Normal. Carotid Bifurcation: Normal. Internal Carotid Artery:Normal. External Carotid Artery (proximal branches): Normal. LEFT CAROTID ARTERIES: Common Carotid Artery: Normal. Carotid Bifurcation: Normal. Internal Carotid Artery:Normal. External Carotid Artery (proximal branches): Normal. VERTEBRAL ARTERIES: Right Vertebral Artery: Normal. Left Vertebral Artery: Normal. OTHER FINDINGS: None. IMPRESSION: Normal MR Angiography of the neck.
[2017-09-06] MEDS ORDERED: Labetalol 25mg/5ml Syringe IVP STA (20:37)
[2017-09-06] MEDS ORDERED: Nitroglycerin 2% Ointment Foilpak UD TOP ONE (23:05)
[2017-09-07] MEDS ORDERED: Enalaprilat 2.5 MG/2 ML IV ONE (00:42)
[2017-09-07] MEDS ORDERED: Nitroglycerin 2% Ointment Foilpak UD TOP STA (00:42)
--- NOTE | 2017-09-07 06:23 | CP.PCM.PN ---
<Karissa Park - Last Filed: 09/07/17 09:48> Subjective - Date & Time of Evaluation Date of Evaluation: 09/07/17 Time of Evaluation: 07:00 - Subjective Subjective: Medicine Note for Hospitalist Service- Dr. Singh Patient was seen and examined at bedside. Alert, awake, not oriented to place, or time. She was able to move all extremities. Is going to work with PT. 12 point ROS unremarkable. Objective - Vital Signs/Intake and Output Vital Signs (last 24 hours): Temp Pulse Resp BP Pulse Ox 99.2 F 97 H 20 194/88 H 97 09/07/17 04:10 09/07/17 04:10 09/07/17 04:10 09/07/17 04:10 09/06/17 23:45 - Medications Medications: Current Medications Amlodipine Besylate (Norvasc) 10 mg PO DAILY [facility] Last Admin: 09/06/17 09:26 Dose: 10 mg Aspirin (Aspirin Chewable) 81 mg PO DAILY [facility] Last Admin: 09/06/17 09:23 Dose: 81 mg Calcium Acetate (Phoslo) 1,334 mg PO TID [facility] Last Admin: 09/06/17 17:58 Dose: Not Given Enoxaparin Sodium (Lovenox) 30 mg SC DAILY [facility] Last Admin: 09/06/17 09:25 Dose: 30 mg Furosemide (Lasix) 40 mg PO DAILY [facility] Last Admin: 09/06/17 09:25 Dose: 40 mg Hydralazine HCl (Apresoline) 10 mg IVP Q6H PRN PRN Reason: HTN Last Admin: 09/06/17 16:28 Dose: 10 mg Hydralazine HCl (Apresoline) 50 mg PO QID [facility] Last Admin: 09/06/17 21:21 Dose: Not Given Hydrochlorothiazide (Hydrodiuril) 25 mg PO DAILY [facility] Insulin Human Regular (Novolin R) 0 unit SC ACHS [facility] PRN Reason: Protocol Last Admin: 09/06/17 21:20 Dose: Not Given Labetalol HCl (Trandate) 100 mg PO Q8H [facility] Last Admin: 09/07/17 04:05 Dose: 100 mg Losartan Potassium (Cozaar) 100 mg PO DAILY [facility] Pneumococcal Polyvalent Vaccine (Pneumovax 23 Vaccine) 0.5 ml IM .ONCE ONE Stop: 09/08/17 10:01 Rosuvastatin Calcium (Crestor) 20 mg PO HS [facility] Last Admin: 09/06/17 21:20 Dose: Not Given - Labs Labs: 09/06/17 08:55 09/06/17 08:55 PT 12.8 SECONDS (9.7-12.2) H 09/05/17 20:16 INR 1.1 09/05/17 20:16 APTT 32 SECONDS (21-34) 09/05/17 20:16 - Additional Findings Additional findings: - Constitutional Appears: No Acute Distress, Confused - Head Exam Head Exam: NORMAL INSPECTION, NORMOCEPHALIC - Eye Exam Eye Exam: EOMI, Normal appearance, PERRL Pupil Exam: NORMAL ACCOMODATION - ENT Exam ENT Exam: Mucous Membranes Moist, Normal Exam - Neck Exam Neck Exam: Normal Inspection - Respiratory Exam Respiratory Exam: Clear to Ausculation Bilateral, NORMAL BREATHING PATTERN. absent: Decreased Breath Sounds, Wheezes - Cardiovascular Exam Cardiovascular Exam: REGULAR RHYTHM, RRR, +S1, +S2 - GI/Abdominal Exam GI & Abdominal Exam: Soft, Normal Bowel Sounds. absent: Distended, Tenderness - Rectal Exam Rectal Exam: Deferred - Extremities Exam Extremities Exam: Normal Inspection. absent: Pedal Edema, Tenderness - Neurological Exam Neurological Exam: Alert, Awake. absent: Oriented x3 Neuro motor strength exam: Left Upper Extremity: 5, Right Upper Extremity: 5, Left Lower Extremity: 5, Right Lower Extremity: 5 - Psychiatric Exam Psychiatric exam: Normal Affect, Normal Mood - Skin Skin Exam: Dry, Intact, Normal Color, Warm Assessment and Plan - Assessment and Plan (Free Text) Plan: Altered Mental Status Assessment and Plan: Neurology consult, Dr Pierce - help appreciated Currently suspects Hypertensive Encephalopathy Patient has baseline dementia Equivocal neurological exam Neuro checks Q4H F/U Blood Cx, Urine Cx F/U B12, Folate Imaging: CT head w/o contrast: Atrophy and small vessel disease, no bleed MRI Brain w/o contast: Suboptimal diagnostic quality due to patient motion. No acute intracranial abnormality. Moderate chronic microangiopathic changes and moderate age-related global parenchymal volume loss. MRA Head and Neck: Normal MR angiography of the brain; Normal MR Angiography of the neck. F/U EEG Possible repeat Head CT Meds: ASA 81mg PO QD Crestor 20mg PO QHS Hypertensive Emergency Assessment and Plan: On admission: 260/115 Currently 190/99 TSH, T4- WNL Cont home med Norvasc 10mg PO QD Cont home med Lasix 40mg PO QD Hydralazine 50mg PO QID (will need to increase) Started on Labetalol 100mg PO Q8H Hydralazine 10mg IVP Q6H PRN for SBP > 180 Medications will be adjusted after dialysis Fever Assessment and Plan: 101.1 09/06/17 @ 4PM F/U Blood Cx, Urine Cx Elevated Troponins Likely 2/2 ESRD Assessment and Plan: No chest pain or palpitations Likely related to HTN emergency ROMIx 3 Elevated: 0.1270 --> 0.1440--> 0.1290 Lipid Panel- WNL F/U ECHO ESRD on Hemodialysis Assessment and Plan: Nephrology consult, Dr Lukas Borrego - help appreciated HD TTS Cont home med Calcium Acetate 1334mg PO TID Type 2 Diabetes Mellitus Assessment and Plan: Accuchecks ISS - medium dose Diabetic Diet Crestor 20mg PO QHS Prophylactic Measures Assessment and Plan: GI prophylaxis not indicated SCDs, Lovenox 40mg SC QD Diabetic diet w/ salt restriction DW Dr. Singh, Karissa Park DO, PGY-1 <Tadeo Singh H - Last Filed: 09/07/17 15:25> Objective - Vital Signs/Intake and Output Vital Signs (last 24 hours): Temp Pulse Resp BP Pulse Ox 98 F 110 H 18 251/105 H 95 09/07/17 15:07 09/07/17 15:07 09/07/17 15:07 09/07/17 15:07 09/07/17 15:07 Intake and Output: 09/07/17 09/07/17 06:59 18:59 Output Total 0 Balance 0 - Medications Medications: Current Medications Amlodipine Besylate (Norvasc) 10 mg PO DAILY [facility] Last Admin: 09/07/17 10:11 Dose: 10 mg Aspirin (Aspirin Chewable) 81 mg PO DAILY [facility] Last Admin: 09/07/17 10:11 Dose: 81 mg Calcium Acetate (Phoslo) 1,334 mg PO TID [facility] Last Admin: 09/07/17 14:02 Dose: Not Given Enoxaparin Sodium (Lovenox) 30 mg SC DAILY [facility] Last Admin: 09/07/17 12:18 Dose: Not Given Furosemide (Lasix) 40 mg PO DAILY [facility] Last Admin: 09/07/17 12:18 Dose: Not Given Hydralazine HCl (Apresoline) 10 mg IVP Q6H PRN PRN Reason: HTN Last Admin: 09/07/17 11:59 Dose: 10 mg Hydralazine HCl (Apresoline) 50 mg PO QID [facility] Last Admin: 09/07/17 14:02 Dose: Not Given Hydrochlorothiazide (Hydrodiuril) 25 mg PO DAILY [facility] Last Admin: 09/07/17 12:18 Dose: Not Given Insulin Human Regular (Novolin R) 0 unit SC A[facility] PRN Reason: Protocol Last Admin: 09/07/17 12:18 Dose: Not Given Labetalol HCl (Trandate) 100 mg PO Q8H [facility] Last Admin: 09/07/17 12:18 Dose: Not Given Losartan Potassium (Cozaar) 100 mg PO DAILY [facility] Last Admin: 09/07/17 12:18 Dose: Not Given Minoxidil (Minoxidil) 10 mg PO DAILY [facility] Pneumococcal Polyvalent Vaccine (Pneumovax 23 Vaccine) 0.5 ml IM .ONCE ONE Stop: 09/08/17 10:01 Rosuvastatin Calcium (Crestor) 20 mg PO HS [facility] Last Admin: 09/06/17 21:20 Dose: Not Given - Labs Labs: 09/07/17 06:47 09/07/17 06:47 PT 12.8 SECONDS (9.7-12.2) H 09/05/17 20:16 INR 1.1 09/05/17 20:16 APTT 32 SECONDS (21-34) 09/05/17 20:16 Attending/Attestation - Attestation I have personally seen and examined this patient.: Yes I have fully participated in the care of the patient.: Yes I have reviewed all pertinent clinical information, including history, physical exam and plan: Yes Notes (Text): 09/07/17 15:21 Medical attending: Patient was seen and examined by me, agree with the above note by medical billing and coding instructor. The patient's blood pressure remains very elevated. And this is despite receiving multiple blood pressure medications. Her systolic range has been greater than 200 now. She is on hydralazine by mouth 50mg 4 times a day, hydralazine 10 IV every 6 hours when necessary, labetalol by mouth 100 mg, Cozaar, hydrochlorothiazide, and despite this as well as dialysis treatment she still has severely elevated blood pressure. Review tried placing the patient on minoxidil 10 mg once a day to be started now and see how she does with this. Also I am being informed that the patient has had nausea and is not always taking her medications - sometimes vommitting. We will try placeing an NGT for the time so that medications can be administered. Thank you very much, Tadeo Singh
[2017-09-07 06:57] LABS: BASO # 0.1 K/uL (0.0-0.2); EOS # 0.1 K/uL (0.0-0.7); EOS % 0.6 % (0.0-4.0); HEMOGLOBIN 10.9 g/dL (11.0-16.0); LYMPH # 1.1 K/uL (1.0-4.3); LYMPH % 13.3 % (20.0-40.0); MEAN CELL VOLUME 68.7 fL (81.0-99.0); MEAN CORPUSCULAR HEMOGLOBIN 21.9 pg (27.0-31.0); MEAN CORPUSCULAR HGB CONC 31.9 g/dL (33.0-37.0); MEAN PLATELET VOLUME 8.3 fL (7.2-11.7); MONO % 12.1 % (0.0-10.0); NRBC % 0.1 % (0.0-2.0); RBC 4.96 Mil/uL (3.80-5.20); WHITE BLOOD COUNT 8.3 K/uL (4.8-10.8)
--- NOTE | 2017-09-07 07:31 | CP.PCM.PN ---
Subjective - Date & Time of Evaluation Date of Evaluation: 09/07/17 Time of Evaluation: 07:30 - Subjective Subjective: Ms. John Benitez was seen and examined at the bedside. She is awake but with confusion. She is unable toanswer any questions or follow simple commands. She moves her upper and lower extremities spontaneously but asterixis of her upper extremities. She is a dialysis patient with current creatinine level of 8.8 from 6.6. She had an episode of elevated blood pressure and fever ( t max 101.1) .yesterday, medications was given with current BP-163/73 and temp 99.MRI of the brain showed no acute intracranial abnormality with moderate chronic angiopathic changes and moderate age-related global parenchymal volume loss. MRA of the head and neck are unremarkable. Objective - Vital Signs/Intake and Output Vital Signs (last 24 hours): Temp Pulse Resp BP Pulse Ox 99.2 F 99 H 20 161/73 H 97 09/07/17 04:10 09/07/17 06:30 09/07/17 04:10 09/07/17 06:30 09/06/17 23:45 - Medications Medications: Current Medications Amlodipine Besylate (Norvasc) 10 mg PO DAILY [facility] Last Admin: 09/06/17 09:26 Dose: 10 mg Aspirin (Aspirin Chewable) 81 mg PO DAILY [facility] Last Admin: 09/06/17 09:23 Dose: 81 mg Calcium Acetate (Phoslo) 1,334 mg PO TID [facility] Last Admin: 09/06/17 17:58 Dose: Not Given Enoxaparin Sodium (Lovenox) 30 mg SC DAILY [facility] Last Admin: 09/06/17 09:25 Dose: 30 mg Furosemide (Lasix) 40 mg PO DAILY [facility] Last Admin: 09/06/17 09:25 Dose: 40 mg Hydralazine HCl (Apresoline) 10 mg IVP Q6H PRN PRN Reason: HTN Last Admin: 09/06/17 16:28 Dose: 10 mg Hydralazine HCl (Apresoline) 50 mg PO QID [facility] Last Admin: 09/06/17 21:21 Dose: Not Given Hydrochlorothiazide (Hydrodiuril) 25 mg PO DAILY [facility] Insulin Human Regular (Novolin R) 0 unit SC ACHS [facility] PRN Reason: Protocol Last Admin: 09/06/17 21:20 Dose: Not Given Labetalol HCl (Trandate) 100 mg PO Q8H [facility] Last Admin: 09/07/17 04:05 Dose: 100 mg Losartan Potassium (Cozaar) 100 mg PO DAILY [facility] Pneumococcal Polyvalent Vaccine (Pneumovax 23 Vaccine) 0.5 ml IM .ONCE ONE Stop: 09/08/17 10:01 Rosuvastatin Calcium (Crestor) 20 mg PO HS [facility] Last Admin: 09/06/17 21:20 Dose: Not Given - Labs Labs: 09/07/17 06:47 09/06/17 08:55 PT 12.8 SECONDS (9.7-12.2) H 09/05/17 20:16 INR 1.1 09/05/17 20:16 APTT 32 SECONDS (21-34) 09/05/17 20:16 - Constitutional Appears: No Acute Distress - Head Exam Head Exam: NORMAL INSPECTION - Eye Exam Additional comments: refused to participate Assessment and Plan (1) Encephalopathy acute Assessment & Plan: Case discussed with Dr. Pierce, continue all current medical regimen. Recommend to refer elevated creatinine to nephrology. If after dialysis if the hand tremors will continue to repeat CT of the head without contrast. Pending EEG and echocardiogram. Recommend blood pressure control and treat any underlying infection. Status: Acute
[2017-09-07 07:33] LABS: ALB/GLOB RATIO 1.3 (1.0-2.1); ALBUMIN 4.2 g/dL (3.5-5.0); CALCIUM 9.6 mg/dl (8.6-10.4)
[2017-09-07] MEDS: (Novolin R) Insulin Human Regular 100 units/ml vial SC SCH ×4 (08:21→21:10)
[2017-09-07] MEDS ORDERED: Influenza Vaccine 60 mcg/0.5 mL SYR (4YR UP) IM ONE (10:00)
[2017-09-07] MEDS: Enoxaparin 30 mg Syringe SC SCH (12:18)
--- NOTE | 2017-09-07 12:18 | CP.PCM.CON ---
History of Present Illness - History of Present Illness History of Present Illness: Pt is a 72 year old female with a PMHx of DM2 and ESRD on HD who was brought to [facility], [place] because her BP during her HD dialysis session was found to be over 200 systolic. She was given clonidine 0.2mg (twice) during HD however there was not much improvement in the BP. In addition, her son and [id number] have noticed increasing confusion over the past two days - such as not being able to recall their names. At baseline she has some level of dementia but relatives feel she has been more forgetful and confused the past 2 days. They did not notice the patient have any focal deficits or facial droop or difficulty speaking. At baseline patient ambulates without assistance. PMHx: DM2 w/ ESRD on HD TTS, HTN, dementia PSHx: renal biopsy 2015, bone marrow biopsy 2013, colonoscopy 2013 FamHx: no family history of kidney disease SocialHx: Denied hx of tobacco, alcohol or illicit drug use; lives with son at home Review of Systems - Review of Systems Systems not reviewed;Unavailable: Acuity of Condition, Dementia Past Patient History - Tetanus Immunizations Tetanus Immunization: Unknown - Past Medical History & Family History Past Medical History?: Yes - Past Social History Smoking Status: Former Smoker - CARDIAC Hx Hypercholesterolemia: Yes Hx Hypertension: Yes - PULMONARY Hx Respiratory Disorders: No - NEUROLOGICAL Hx Neurological Disorder: No - HEENT Hx HEENT Problems: Yes Hx Cataracts: Yes (bilat iol) - RENAL Hx Chronic Kidney Disease: Yes - ENDOCRINE/METABOLIC Hx Endocrine Disorders: Yes Hx Diabetes Mellitus Type 2: Yes - HEMATOLOGICAL/ONCOLOGICAL Hx Anemia: Yes - INTEGUMENTARY Hx Dermatological Problems: No - MUSCULOSKELETAL/RHEUMATOLOGICAL Hx Falls: No - GASTROINTESTINAL Hx Gastrointestinal Disorders: No - GENITOURINARY/GYNECOLOGICAL Hx Genitourinary Disorders: No - PSYCHIATRIC Hx Substance Use: No - SURGICAL HISTORY Hx Surgeries: Yes Hx Cataract Extraction: Yes Other/Comment: perma cath insertion - ANESTHESIA Hx Anesthesia: Yes Hx Anesthesia Reactions: No Hx Malignant Hyperthermia: No Meds Allergies/Adverse Reactions: Allergies Allergy/AdvReac Type Severity Reaction Status Date / Time No Known Allergies Allergy Verified 11/11/16 17:27 - Medications Medications: Current Medications Amlodipine Besylate (Norvasc) 10 mg PO DAILY [facility] Last Admin: 09/07/17 10:11 Dose: 10 mg Aspirin (Aspirin Chewable) 81 mg PO DAILY [facility] Last Admin: 09/07/17 10:11 Dose: 81 mg Calcium Acetate (Phoslo) 1,334 mg PO TID [facility] Last Admin: 09/06/17 17:58 Dose: Not Given Enoxaparin Sodium (Lovenox) 30 mg SC DAILY [facility] Last Admin: 09/06/17 09:25 Dose: 30 mg Furosemide (Lasix) 40 mg PO DAILY [facility] Last Admin: 09/06/17 09:25 Dose: 40 mg Hydralazine HCl (Apresoline) 10 mg IVP Q6H PRN PRN Reason: HTN Last Admin: 09/07/17 11:59 Dose: 10 mg Hydralazine HCl (Apresoline) 50 mg PO QID [facility] Last Admin: 09/06/17 21:21 Dose: Not Given Hydrochlorothiazide (Hydrodiuril) 25 mg PO DAILY [facility] Insulin Human Regular (Novolin R) 0 unit SC ACHS [facility] PRN Reason: Protocol Last Admin: 09/07/17 08:21 Dose: Not Given Labetalol HCl (Trandate) 100 mg PO Q8H [facility] Last Admin: 09/07/17 04:05 Dose: 100 mg Losartan Potassium (Cozaar) 100 mg PO DAILY [facility] Pneumococcal Polyvalent Vaccine (Pneumovax 23 Vaccine) 0.5 ml IM .ONCE ONE Stop: 09/08/17 10:01 Rosuvastatin Calcium (Crestor) 20 mg PO HS [facility] Last Admin: 09/06/17 21:20 Dose: Not Given Physical Exam - Constitutional Appears: Non-toxic, Older Than Stated Age - Head Exam Head Exam: ATRAUMATIC, NORMOCEPHALIC - Eye Exam Eye Exam: EOMI, PERRL - ENT Exam ENT Exam: Mucous Membranes Moist - Neck Exam Neck exam: Negative for: Lymphadenopathy - Respiratory Exam Respiratory Exam: Clear to Auscultation Bilateral. absent: Rhonchi, Wheezes - Cardiovascular Exam Cardiovascular Exam: REGULAR RHYTHM, +S1, +S2 - GI/Abdominal Exam GI & Abdominal Exam: Normal Bowel Sounds, Soft. absent: Distended, Tenderness - Extremities Exam Extremities exam: Negative for: joint swelling, pedal edema - Neurological Exam Additional comments: awake, not oriented - Psychiatric Exam Psychiatric exam: Agitated - Skin Skin Exam: Dry, Warm Results - Vital Signs Recent Vital Signs: Last Vital Signs Temp 98.3 F 09/07/17 11:35 Pulse 103 H 09/07/17 11:35 Resp 22 09/07/17 11:35 BP 200/111 H 09/07/17 11:35 Pulse Ox 96 09/07/17 11:35 - Labs Result Diagrams: 09/07/17 06:47 09/07/17 06:47 Labs: Laboratory Results - last 24 hr 09/06/17 09/06/17 09/06/17 16:35 17:45 21:14 WBC RBC Hgb Hct MCV MCH MCHC RDW Plt Count MPV Neut % (Auto) Lymph % (Auto) [place] % (Auto) Eos % (Auto) Baso % (Auto) Neut # (Auto) Lymph # (Auto) [place] # (Auto) Eos # (Auto) Baso # (Auto) Sodium Potassium Chloride Carbon Dioxide Anion Gap BUN Creatinine Est GFR ( Amer) Est GFR (Non-Af Amer) POC Glucose (mg/dL) 163 H 184 H Random Glucose Hemoglobin A1c Calcium Phosphorus Magnesium Total Bilirubin AST ALT Alkaline Phosphatase Total Protein Albumin Globulin Albumin/Globulin Ratio Free T4 1.70 09/07/17 09/07/17 09/07/17 06:28 06:47 06:47 WBC 8.3 D RBC 4.96 Hgb 10.9 L Hct 34.1 MCV 68.7 L MCH 21.9 L MCHC 31.9 L RDW 21.0 H Plt Count 230 MPV 8.3 Neut % (Auto) 73.0 Lymph % (Auto) 13.3 L [place] % (Auto) 12.1 H Eos % (Auto) 0.6 Baso % (Auto) 1.0 Neut # (Auto) 6.0 Lymph # (Auto) 1.1 [place] # (Auto) 1.0 H Eos # (Auto) 0.1 Baso # (Auto) 0.1 Sodium 144 Potassium 4.3 Chloride 95 L Carbon Dioxide 28 Anion Gap 26 H BUN 36 H Creatinine 8.8 H* D Est GFR ( Amer) 5 Est GFR (Non-Af Amer) 4 POC Glucose (mg/dL) 158 H Random Glucose 166 H Hemoglobin A1c Calcium 9.6 Phosphorus 6.3 H Magnesium 2.3 Total Bilirubin 0.8 AST 25 ALT 10 Alkaline Phosphatase 89 Total Protein 7.5 Albumin 4.2 Globulin 3.3 Albumin/Globulin Ratio 1.3 Free T4 09/07/17 09/07/17 06:47 11:24 WBC RBC Hgb Hct MCV MCH MCHC RDW Plt Count MPV Neut % (Auto) Lymph % (Auto) [place] % (Auto) Eos % (Auto) Baso % (Auto) Neut # (Auto) Lymph # (Auto) [place] # (Auto) Eos # (Auto) Baso # (Auto) Sodium Potassium Chloride Carbon Dioxide Anion Gap BUN Creatinine Est GFR ( Amer) Est GFR (Non-Af Amer) POC Glucose (mg/dL) 159 H Random Glucose Hemoglobin A1c 5.7 Calcium Phosphorus Magnesium Total Bilirubin AST ALT Alkaline Phosphatase Total Protein Albumin Globulin Albumin/Globulin Ratio Free T4 Assessment & Plan (1) Altered mental state Status: Acute Priority: High (2) Hypertensive emergency Status: Acute Priority: High (3) End-stage renal disease on hemodialysis Status: Chronic Priority: High (4) Anemia Status: Chronic (5) Type 2 diabetes mellitus Status: Chronic Priority: High - Assessment and Plan (Free Text) Plan: HD today resume home BP meds pt agitated- ? need for psyche eval MRI brain - negative for any acute changes or stroke discussed with sister on the phone
--- NOTE | 2017-09-07 15:18 | CARD ---
APPROVED REPORT EKG Measurement Heart [id number] <Conclusion> Normal sinus rhythm Possible Left atrial enlargement Left ventricular hypertrophy Cannot rule out Septal infarct, age undetermined Abnormal ECG
[2017-09-07] MEDS ORDERED: Nitroglycerin 2% Ointment Foilpak UD TOP ONE (16:00)
[2017-09-08] MEDS ORDERED: Labetalol 25mg/5ml Syringe IVP PRN (06:59)
--- NOTE | 2017-09-08 07:07 | CP.PCM.PN ---
Subjective - Date & Time of Evaluation Date of Evaluation: 09/08/17 Time of Evaluation: 07:05 - Subjective Subjective: Ms. John Benitez was seen and examined at the bedside. She is asleep and some difficulty to arose,with confusion. She is unable to answer any questions. She can follow one simple command such as opening her mouth. She moves her upper and lower extremities spontaneously with restlessness, currently with hand mitten for patient safety.She has episode of elevated blood pressure and spits out all PO medications. There was no untoward events overnight. Objective - Vital Signs/Intake and Output Vital Signs (last 24 hours): Temp Pulse Resp BP Pulse Ox 98.9 F 105 H 20 236/98 H 96 09/08/17 04:15 09/08/17 06:55 09/08/17 06:55 09/08/17 06:55 09/08/17 04:15 - Medications Medications: Current Medications Amlodipine Besylate (Norvasc) 10 mg PO DAILY [facility] Last Admin: 09/07/17 10:11 Dose: 10 mg Aspirin (Aspirin Chewable) 81 mg PO DAILY [facility] Last Admin: 09/07/17 10:11 Dose: 81 mg Calcium Acetate (Phoslo) 1,334 mg PO TID [facility] Last Admin: 09/07/17 17:38 Dose: Not Given Enoxaparin Sodium (Lovenox) 30 mg SC DAILY [facility] Last Admin: 09/07/17 12:18 Dose: Not Given Furosemide (Lasix) 40 mg PO DAILY [facility] Last Admin: 09/07/17 12:18 Dose: Not Given Hydralazine HCl (Apresoline) 10 mg IVP Q6H PRN PRN Reason: HTN Last Admin: 09/08/17 07:00 Dose: 10 mg Hydralazine HCl (Apresoline) 50 mg PO QID [facility] Last Admin: 09/07/17 21:11 Dose: Not Given Hydrochlorothiazide (Hydrodiuril) 25 mg PO DAILY [facility] Last Admin: 09/07/17 12:18 Dose: Not Given Insulin Human Regular (Novolin R) 0 unit SC ACHS [facility] PRN Reason: Protocol Last Admin: 09/07/17 21:10 Dose: Not Given Labetalol HCl (Trandate) 20 mg IVP Q8 PRN PRN Reason: Other Losartan Potassium (Cozaar) 100 mg PO DAILY [facility] Last Admin: 09/07/17 12:18 Dose: Not Given Minoxidil (Loniten) 10 mg PO DAILY [facility] Pneumococcal Polyvalent Vaccine (Pneumovax 23 Vaccine) 0.5 ml IM .ONCE ONE Stop: 09/08/17 10:01 Rosuvastatin Calcium (Crestor) 20 mg PO HS [facility] Last Admin: 09/07/17 21:11 Dose: Not Given - Labs Labs: 09/07/17 06:47 09/07/17 06:47 PT 12.8 SECONDS (9.7-12.2) H 09/05/17 20:16 INR 1.1 09/05/17 20:16 APTT 32 SECONDS (21-34) 09/05/17 20:16 - Constitutional Appears: No Acute Distress - Head Exam Head Exam: NORMAL INSPECTION - Eye Exam Pupil Exam: PERRL - Neurological Exam Neurological Exam: Awake Neuro motor strength exam: Left Upper Extremity: 3, Right Upper Extremity: 3, Left Lower Extremity: 3, Right Lower Extremity: 3 Additional comments: She has hard time being arousable, moves all extremities spontaneously. Assessment and Plan (1) Encephalopathy acute Assessment & Plan: Case discussed with Dr. Pierce, continue all current medical and speech therapies, Recommend blood pressure control and if patient unable to tolerate PO to change it to IV. Recommend repeat CT of the head without contrast. Pending EEG. Status: Acute
[2017-09-08 07:27] LABS: BASO % 0.5 % (0.0-2.0); LYMPH # 1.1 K/uL (1.0-4.3); LYMPH % 11.9 % (20.0-40.0); MEAN CELL VOLUME 69.2 fL (81.0-99.0); MEAN CORPUSCULAR HEMOGLOBIN 22.4 pg (27.0-31.0); MEAN CORPUSCULAR HGB CONC 32.4 g/dL (33.0-37.0); MEAN PLATELET VOLUME 8.5 fL (7.2-11.7); MONO # 0.9 K/uL (0.0-0.8); NEUT # 7.2 K/uL (1.8-7.0); NEUT % 77.6 % (50.0-75.0); NRBC % 0.1 % (0.0-2.0); RBC 4.91 Mil/uL (3.80-5.20); RED CELL DISTRIBUTION WIDTH 21.5 % (11.5-14.5); WHITE BLOOD COUNT 9.3 K/uL (4.8-10.8)
[2017-09-08] MEDS ORDERED: Enalaprilat 2.5 MG/2 ML IV SCH (07:30)
[2017-09-08 07:41] LABS: ALB/GLOB RATIO 1.3 (1.0-2.1); ALBUMIN 4.4 g/dL (3.5-5.0); CALCIUM 9.8 mg/dl (8.6-10.4)
[2017-09-08] MEDS: (Novolin R) Insulin Human Regular 100 units/ml vial SC SCH ×4 (08:04→21:54)
--- NOTE | 2017-09-08 09:20 | CT ---
PROCEDURE: CT HEAD WITHOUT CONTRAST. HISTORY: AMS, elevated blood pressure COMPARISON: Comparison 09/05/2017 TECHNIQUE: Axial computed tomography images were obtained through the head/brain without intravenous contrast. Radiation dose: Total exam DLP = 1295.43 mGy-cm. This CT exam was performed using one or more of the following dose reduction techniques: Automated exposure control, adjustment of the mA and/or kV according to patient size, and/or use of iterative reconstruction technique. FINDINGS: HEMORRHAGE: No intracranial hemorrhage. BRAIN: No mass effect or edema. Moderate periventricular white matter lucency consistent with chronic microvascular ischemic change. Patchy and confluent deep and subcortical white matter lucency consistent with white matter ischemic change. VENTRICLES: Unremarkable. No hydrocephalus. CALVARIUM: Unremarkable. PARANASAL SINUSES: Unremarkable as visualized. No significant inflammatory changes. MASTOID AIR CELLS: Unremarkable as visualized. No inflammatory changes. OTHER FINDINGS: None. IMPRESSION: No evidence of acute infarct. No intracranial mass or hemorrhage. Chronic microvascular ischemic change. No change from 09/05/2017.
[2017-09-08] MEDS ORDERED: Pneumococcal 23-Valent Vaccine IM ONE (10:00)
--- NOTE | 2017-09-08 10:45 | CARD ---
APPROVED REPORT EXAM: Two-dimensional and M-mode echocardiogram with Doppler and color Doppler. Other Information Quality : GoodRhythm : INDICATION Chest Pain R/O EMOBLIC STROKE RISK FACTORS Diabetes 2D DIMENSIONS IVSd1.3 (0.7-1.1cm)LVDd4.1 (3.9-5.9cm) PWd1.3 (0.7-1.1cm)LVDs2.2 (2.5-4.0cm) FS (%) 46.8 %LVEF (%)78.7 (>50%) M-Mode DIMENSIONS Left Atrium (MM)4.18 (2.5-4.0cm)Aortic Root3.37 (2.2-3.7cm) Mitral Valve MV E Trhyritn604.9cm/sMV A Pdjgzwow479.5cm/sE/A ratio0.6 TDI E/Lateral E'0.0E/Medial E'0.0 Tricuspid Valve TR Peak Fxfysysp102yt/sTR Peak Gr.[id number] <Conclusion> Left ventricle: thickness: mild concentric thickeningl; size: normal; overall ejection fraction: 75%: diastolic filling pressures: elevated Mitral valve: annulus: normal: leaflets: normal: excursion: normal; no significant trans-mitral gradient: no significant incompetence: left atrium: dilated Aortic valve: leaflets: mild calcific thickening: excursion: normal; no significant trans-aortic gradient: No significant incompetence: aortic root: normal Right sided Structures: Pulmonary valve: normal; no significant incompetence; Tricuspid valve: normal; no significant incompetence: Intra-cardiac hemodynamics: pulmonary systolic pressures: 73 mmHg; central venous pressures: normal No pericardial effusion
--- NOTE | 2017-09-08 11:00 | CARD ---
APPROVED REPORT EKG Measurement Heart [id number] MI [id number] <Conclusion> Sinus rhythm with 1st degree AV block Septal infarct, age undetermined Abnormal ECG
[2017-09-08] MEDS: Enoxaparin 30 mg Syringe SC SCH (11:59)
[2017-09-08] MEDS ORDERED: Nitroglycerin 50mg in D5W 50 MG/250 ML BOTTLE IV SCH (13:00)
--- NOTE | 2017-09-08 13:16 | CP.PCM.PN ---
Subjective - Date & Time of Evaluation Date of Evaluation: 09/08/17 Time of Evaluation: 13:14 - Subjective Subjective: Events noted HTN still uncontrolled Pt refusing BP meds- spitting them out stable dialysis 09/07- UF 2500ml CXR neg no CVA seen on imaging Objective - Vital Signs/Intake and Output Vital Signs (last 24 hours): Temp Pulse Resp BP Pulse Ox 98.8 F 98 H 20 238/104 H 98 09/08/17 08:42 09/08/17 12:30 09/08/17 08:42 09/08/17 12:30 09/08/17 08:42 - Medications Medications: Current Medications Amlodipine Besylate (Norvasc) 10 mg PO DAILY [facility] Last Admin: 09/08/17 11:52 Dose: Not Given Aspirin (Aspirin Supp) 300 mg [place] DAILY [facility] Last Admin: 09/08/17 11:50 Dose: 300 mg Calcium Acetate (Phoslo) 1,334 mg PO TID [facility] Last Admin: 09/08/17 11:52 Dose: Not Given Enoxaparin Sodium (Lovenox) 30 mg SC DAILY [facility] Last Admin: 09/08/17 11:59 Dose: 30 mg Furosemide (Lasix) 40 mg PO DAILY [facility] Last Admin: 09/08/17 11:51 Dose: Not Given Hydralazine HCl (Apresoline) 10 mg IVP Q6H PRN PRN Reason: HTN Last Admin: 09/08/17 07:00 Dose: 10 mg Hydralazine HCl (Apresoline) 50 mg PO QID [facility] Last Admin: 09/08/17 11:59 Dose: Not Given Hydrochlorothiazide (Hydrodiuril) 25 mg PO DAILY [facility] Last Admin: 09/08/17 11:51 Dose: Not Given Nitroglycerin/Dextrose (Nitroglycerin 50 Mg/250 Ml D5w) 50 mg in 250 mls @ 3 mls/hr IV .Q24H [facility]; 10 MCG/MIN PRN Reason: Protocol Insulin Human Regular (Novolin R) 0 unit SC ACHS [facility] PRN Reason: Protocol Last Admin: 09/08/17 11:52 Dose: Not Given Labetalol HCl (Trandate) 20 mg IVP Q8 PRN PRN Reason: SBP>200 OR DPB>110 Last Admin: 09/08/17 11:35 Dose: 20 mg Losartan Potassium (Cozaar) 100 mg PO DAILY [facility] Last Admin: 09/08/17 11:51 Dose: Not Given Minoxidil (Loniten) 10 mg PO DAILY [facility] Rosuvastatin Calcium (Crestor) 20 mg PO HS [facility] Last Admin: 09/07/17 21:11 Dose: Not Given - Labs Labs: 09/08/17 07:17 09/08/17 07:17 PT 12.8 SECONDS (9.7-12.2) H 09/05/17 20:16 INR 1.1 09/05/17 20:16 APTT 32 SECONDS (21-34) 09/05/17 20:16 - Constitutional Appears: Agitated, Confused, Chronically Ill - Head Exam Head Exam: ATRAUMATIC, NORMAL INSPECTION - Eye Exam Eye Exam: EOMI, Normal appearance - Neck Exam Neck Exam: Normal Inspection. absent: Tenderness - Respiratory Exam Respiratory Exam: Clear to Ausculation Bilateral, NORMAL BREATHING PATTERN - Cardiovascular Exam Cardiovascular Exam: Tachycardia, +S1 - GI/Abdominal Exam GI & Abdominal Exam: Soft. absent: Tenderness - Extremities Exam Extremities Exam: Normal Inspection. absent: Tenderness - Neurological Exam Neurological Exam: Altered - Skin Skin Exam: Dry, Warm Assessment and Plan (1) Uncontrolled hypertension Status: Acute (2) Dementia Status: Acute (3) Altered mental state Status: Acute (4) End-stage renal disease on hemodialysis Status: Chronic (5) Type 2 diabetes mellitus Status: Chronic - Assessment and Plan (Free Text) Plan: Change to IV anti-hypertensives Increase UF with dialysis TTS Neuro eval; encephalopathy workup
[2017-09-08] MEDS ORDERED: Labetalol 25mg/5ml Syringe IVP SCH ×2 (13:30→17:00)
--- NOTE | 2017-09-08 14:10 | CP.PCM.PN ---
Subjective - Date & Time of Evaluation Date of Evaluation: 09/08/17 Time of Evaluation: 14:00 - Subjective Subjective: Patient was moved to the ICU. Yesterday as well as overnight we had tried to control the blood pressure however it is still severely elevated today. We had tried things like PO and IV hydralazine as well as Cozzar, HCTZ, and IV enalapril. These did not have any meaningful response. The patient would spit out all of her medications and even if the medication was placed in with applecesauce she would not take these Last night we tried to place down an NGT to see if meds could be administered - however she was able to take it out on her own. Then we tried applying topical nitropaste - this had no affect overnight. So now she is in ICU, on nitroglycerin ggt and later will be placed on labetalol ggt. My hope is that her AMS is due to the ongoing HTN emergency causing encepholopathy. She has had several CT and MRI imaging of the brain and does not have a stroke ( so far but she's very high risk) Objective - Vital Signs/Intake and Output Vital Signs (last 24 hours): Temp Pulse Resp BP Pulse Ox 98.8 F 98 H 20 238/104 H 98 09/08/17 08:42 09/08/17 12:30 09/08/17 08:42 09/08/17 12:30 09/08/17 08:42 - Medications Medications: Current Medications Amlodipine Besylate (Norvasc) 10 mg PO DAILY [facility] Last Admin: 09/08/17 11:52 Dose: Not Given Aspirin (Aspirin Supp) 300 mg [place] DAILY [facility] Last Admin: 09/08/17 11:50 Dose: 300 mg Calcium Acetate (Phoslo) 1,334 mg PO TID [facility] Last Admin: 09/08/17 11:52 Dose: Not Given Clonidine HCl (Catapres-Tts3 0.3 Mg/24 Hr) 1 patch TD Q7D@1000 [facility] Enoxaparin Sodium (Lovenox) 30 mg SC DAILY [facility] Last Admin: 09/08/17 11:59 Dose: 30 mg Furosemide (Lasix) 40 mg PO DAILY [facility] Last Admin: 09/08/17 11:51 Dose: Not Given Hydralazine HCl (Apresoline) 10 mg IVP Q6H PRN PRN Reason: HTN Last Admin: 09/08/17 07:00 Dose: 10 mg Hydralazine HCl (Apresoline) 50 mg PO QID [facility] Last Admin: 09/08/17 11:59 Dose: Not Given Hydrochlorothiazide (Hydrodiuril) 25 mg PO DAILY [facility] Last Admin: 09/08/17 11:51 Dose: Not Given Nitroglycerin/Dextrose (Nitroglycerin 50 Mg/250 Ml D5w) 50 mg in 250 mls @ 3 mls/hr IV .Q24H [facility]; 10 MCG/MIN PRN Reason: Protocol Labetalol HCl 300 mg/ Dextrose 300 mls @ 120 mls/hr IV .Q2H30M [facility]; 2 MG/MIN PRN Reason: Protocol Insulin Human Regular (Novolin R) 0 unit SC ACHS [facility] PRN Reason: Protocol Last Admin: 09/08/17 11:52 Dose: Not Given Labetalol HCl (Trandate) 20 mg IVP Q6H [facility] Losartan Potassium (Cozaar) 100 mg PO DAILY [facility] Last Admin: 09/08/17 11:51 Dose: Not Given Minoxidil (Loniten) 10 mg PO DAILY [facility] Rosuvastatin Calcium (Crestor) 20 mg PO HS [facility] Last Admin: 09/07/17 21:11 Dose: Not Given - Labs Labs: 09/08/17 07:17 09/08/17 07:17 PT 12.8 SECONDS (9.7-12.2) H 09/05/17 20:16 INR 1.1 09/05/17 20:16 APTT 32 SECONDS (21-34) 09/05/17 20:16 - Constitutional Appears: Unkempt, Confused, Chronically Ill - ENT Exam ENT Exam: Mucous Membranes Moist - Respiratory Exam Respiratory Exam: Clear to Ausculation Bilateral, NORMAL BREATHING PATTERN - Cardiovascular Exam Cardiovascular Exam: REGULAR RHYTHM - Neurological Exam Neurological Exam: Altered, Awake - Psychiatric Exam Psychiatric exam: Depressed, Flat Affect - Skin Skin Exam: Normal Color, Warm Assessment and Plan - Assessment and Plan (Free Text) Assessment: Hypertensive Emergency 09/08: Now moved to the ICU and on nitroglycerin ggt and labetalol ggt. As mentioned before she is refusing PO medications and we can't put an NGT in She also had topical nitroglycerin and this had no affect. Hopefully with the nitroglycerin ggt and labetalol ggt it will lower BP and she will now be encephlopathy So far the imaging does not show a CVA Altered Mental Status 09/08: Patient does have baseline dementia. The severe HTN is likley causing ecephalopathy as well/ Imaging: CT head w/o contrast: Atrophy and small vessel disease, no bleed MRI Brain w/o contast: Suboptimal diagnostic quality due to patient motion. No acute intracranial abnormality. Moderate chronic microangiopathic changes and moderate age-related global parenchymal volume loss. MRA Head and Neck: Normal MR angiography of the brain; Normal MR Angiography of the neck. F/U EEG Fever Elevated Troponins Likely 2/2 ESRD No chest pain or palpitations Likely related to HTN emergency ROMIx 3 Elevated: 0.1270 --> 0.1440--> 0.1290 Lipid Panel- WNL F/U ECHO ESRD on Hemodialysis Nephrology consult, Dr Lukas Borrego - help appreciated HD TTS Cont home med Calcium Acetate 1334mg PO TID Type 2 Diabetes Mellitus Accuchecks ISS - medium dose Diabetic Diet Crestor 20mg PO QHS Prophylactic Measures Assessment and Plan: GI prophylaxis not indicated SCDs, Lovenox 40mg SC QD Diabetic diet w/ salt restriction
--- NOTE | 2017-09-08 14:16 | CP.PCM.CON ---
<Mekhi Villeda - Last Filed: 09/08/17 14:30> History of Present Illness - History of Present Illness History of Present Illness: Mrs Lopez is a 72 year old female with a PMHx of DM2 and ESRD on HD who was brought to [facility] ER because her BP during her HD dialysis session was found to be over 200 systolic. She was given clonidine 0.2mg (twice ) during HD however there was not much improvement in the BP. In addition, her son and [id number] have noticed increasing confusion over the past two days - such as not being able to recall their names. At baseline she has some level of dementia but relatives feel she has been more forgetful and confused the past 2 days. They did not notice the patient have any focal deficits or facial droop or difficulty speaking. At baseline patient ambulates without assistance. ICU was consulted due to her blood pressure remaining in the 200's systolic while on medication. ED Course: Hydralazine, Enalaprilat, CT Head, EKG, CXR, Blood Cx, Urine Cx, UA PMD: Dr Cheung ([place]) PMHx: DM2 w/ ESRD on HD TTS PSHx: renal biopsy 2015, bone marrow biopsy 2013, colonoscopy 2013 Allergies: NKA Home meds: Calcium Acetate 1334mg PO TID, Hydralazine 25mg PO QID, Norvasc 10mg PO QD, Lasix 40mg PO QD FamHx: Denies SocialHx: Denied hx of tobacco, alcohol or illicit drug use; lives with son at home Review of Systems - Review of Systems Systems not reviewed;Unavailable: Dementia Past Patient History - Tetanus Immunizations Tetanus Immunization: Unknown - Past Medical History & Family History Past Medical History?: Yes - Past Social History Smoking Status: Former Smoker - CARDIAC Hx Hypercholesterolemia: Yes Hx Hypertension: Yes - PULMONARY Hx Respiratory Disorders: No - NEUROLOGICAL Hx Neurological Disorder: No - HEENT Hx HEENT Problems: Yes Hx Cataracts: Yes (bilat iol) - RENAL Hx Chronic Kidney Disease: Yes - ENDOCRINE/METABOLIC Hx Diabetes Mellitus Type 2: Yes - HEMATOLOGICAL/ONCOLOGICAL Hx Anemia: Yes - INTEGUMENTARY Hx Dermatological Problems: No - MUSCULOSKELETAL/RHEUMATOLOGICAL Hx Falls: No - GASTROINTESTINAL Hx Gastrointestinal Disorders: No - GENITOURINARY/GYNECOLOGICAL Hx Genitourinary Disorders: No - PSYCHIATRIC Hx Substance Use: No - SURGICAL HISTORY Hx Surgeries: Yes Hx Cataract Extraction: Yes Other/Comment: perma cath insertion - ANESTHESIA Hx Anesthesia: Yes Hx Anesthesia Reactions: No Hx Malignant Hyperthermia: No Meds Allergies/Adverse Reactions: Allergies Allergy/AdvReac Type Severity Reaction Status Date / Time No Known Allergies Allergy Verified 11/11/16 17:27 - Medications Medications: Current Medications Amlodipine Besylate (Norvasc) 10 mg PO DAILY [facility] Last Admin: 09/08/17 11:52 Dose: Not Given Aspirin (Aspirin Supp) 300 mg [place] DAILY [facility] Last Admin: 09/08/17 11:50 Dose: 300 mg Calcium Acetate (Phoslo) 1,334 mg PO TID [facility] Last Admin: 09/08/17 11:52 Dose: Not Given Clonidine HCl (Catapres-Tts3 0.3 Mg/24 Hr) 1 patch TD Q7D@1000 [facility] Enoxaparin Sodium (Lovenox) 30 mg SC DAILY [facility] Last Admin: 09/08/17 11:59 Dose: 30 mg Furosemide (Lasix) 40 mg PO DAILY [facility] Last Admin: 09/08/17 11:51 Dose: Not Given Hydralazine HCl (Apresoline) 10 mg IVP Q6H PRN PRN Reason: HTN Last Admin: 09/08/17 07:00 Dose: 10 mg Hydralazine HCl (Apresoline) 50 mg PO QID [facility] Last Admin: 09/08/17 11:59 Dose: Not Given Hydrochlorothiazide (Hydrodiuril) 25 mg PO DAILY [facility] Last Admin: 09/08/17 11:51 Dose: Not Given Nitroglycerin/Dextrose (Nitroglycerin 50 Mg/250 Ml D5w) 50 mg in 250 mls @ 3 mls/hr IV .Q24H [facility]; 10 MCG/MIN PRN Reason: Protocol Labetalol HCl 300 mg/ Dextrose 300 mls @ 120 mls/hr IV .Q2H30M [facility]; 2 MG/MIN PRN Reason: Protocol Insulin Human Regular (Novolin R) 0 unit SC ACHS [facility] PRN Reason: Protocol Last Admin: 09/08/17 11:52 Dose: Not Given Labetalol HCl (Trandate) 20 mg IVP Q6H [facility] Losartan Potassium (Cozaar) 100 mg PO DAILY [facility] Last Admin: 09/08/17 11:51 Dose: Not Given Minoxidil (Loniten) 10 mg PO DAILY [facility] Rosuvastatin Calcium (Crestor) 20 mg PO HS [facility] Last Admin: 09/07/17 21:11 Dose: Not Given Physical Exam - Head Exam Head Exam: ATRAUMATIC, NORMAL INSPECTION, NORMOCEPHALIC - Eye Exam Eye Exam: EOMI, Normal appearance, PERRL Pupil Exam: NORMAL ACCOMODATION, PERRL - ENT Exam ENT Exam: Mucous Membranes Moist, Normal Exam - Respiratory Exam Respiratory Exam: Clear to Auscultation Bilateral, NORMAL BREATHING PATTERN - Cardiovascular Exam Cardiovascular Exam: Tachycardia, +S1, +S2 - GI/Abdominal Exam GI & Abdominal Exam: Normal Bowel Sounds, Soft - Extremities Exam Extremities exam: Positive for: normal inspection - Back Exam Back exam: NORMAL INSPECTION - Psychiatric Exam Psychiatric exam: Normal Affect, Normal Mood - Skin Skin Exam: Dry, Normal Color Results - Vital Signs Recent Vital Signs: Last Vital Signs Temp 98.8 F 09/08/17 08:42 Pulse 98 H 09/08/17 12:30 Resp 20 09/08/17 08:42 BP 238/104 H 09/08/17 12:30 Pulse Ox 98 09/08/17 08:42 - Labs Result Diagrams: 09/08/17 07:17 09/08/17 07:17 Labs: Laboratory Results - last 24 hr 09/07/17 09/07/17 09/07/17 16:29 18:24 20:48 WBC RBC Hgb Hct MCV MCH MCHC RDW Plt Count MPV Neut % (Auto) Lymph % (Auto) Stanton % (Auto) Eos % (Auto) Baso % (Auto) Neut # (Auto) Lymph # (Auto) Stanton # (Auto) Eos # (Auto) Baso # (Auto) Sodium Potassium Chloride Carbon Dioxide Anion Gap BUN Creatinine Est GFR ( Amer) Est GFR (Non-Af Amer) POC Glucose (mg/dL) 143 H 162 H Random Glucose Calcium Phosphorus Magnesium Total Bilirubin AST ALT Alkaline Phosphatase Total Protein Albumin Globulin Albumin/Globulin Ratio Hep Bs Antigen Negative 09/08/17 09/08/17 09/08/17 06:17 07:17 07:17 WBC 9.3 RBC 4.91 Hgb 11.0 Hct 34.0 MCV 69.2 L MCH 22.4 L MCHC 32.4 L RDW 21.5 H Plt Count 259 MPV 8.5 Neut % (Auto) 77.6 H Lymph % (Auto) 11.9 L Stanton % (Auto) 10.0 Eos % (Auto) 0.0 Baso % (Auto) 0.5 Neut # (Auto) 7.2 H Lymph # (Auto) 1.1 Stanton # (Auto) 0.9 H Eos # (Auto) 0.0 Baso # (Auto) 0.0 Sodium 145 Potassium 4.2 Chloride 96 L Carbon Dioxide 26 Anion Gap 28 H BUN 34 H Creatinine 6.6 H Est GFR ( Amer) 7 Est GFR (Non-Af Amer) 6 POC Glucose (mg/dL) 179 H Random Glucose 174 H Calcium 9.8 Phosphorus 6.3 H Magnesium 2.5 H Total Bilirubin 1.0 AST 25 ALT 14 Alkaline Phosphatase 92 Total Protein 7.9 Albumin 4.4 Globulin 3.5 Albumin/Globulin Ratio 1.3 Hep Bs Antigen Assessment & Plan - Assessment and Plan (Free Text) Assessment: 72 year old female with a PMHx of DM2 and ESRD on HD, and hypertension who is being admitted to the ICU for uncontrolled hypertension with a systolic blood pressure above 200 (hypertensive emergency). Plan: Cardiology: Hypertensive Emergency, Elevated troponins 09/08: Now moved to the ICU and on nitroglycerin ggt and labetalol ggt. As mentioned before she is refusing PO medications and we can't put an NGT in She also had topical nitroglycerin and this had no affect. No chest pain or palpitations ROMIx 3 Elevated: 0.1270 --> 0.1440--> 0.1290 Nitroglycerin ggt and Labetalol ggt Echo ordered. Will f/u with results. Neurology:Altered Mental Status CT head w/o contrast: Atrophy and small vessel disease, no bleed MRI Brain w/o contast: Suboptimal diagnostic quality due to patient motion. No acute intracranial abnormality. Moderate chronic microangiopathic changes and moderate age-related global parenchymal volume loss. MRA Head and Neck: Normal MR angiography of the brain; Normal MR Angiography of the neck. EEG ordered. Will f/u with results. Patient does have baseline dementia. Nephrology: ESRD on HD Nephrology consult, Dr Lukas Borrego - help appreciated HD TTS Cont home med Calcium Acetate 1334mg PO TID Endocrinology:Type 2 Diabetes Mellitus Accuchecks ISS - medium dose Diabetic Diet Crestor 20mg PO QHS PPX SCDs, Lovenox 40mg SC QD Diabetic diet w/ salt restriction <Tripp Allan - Last Filed: 09/08/17 18:19> Meds - Medications Medications: Current Medications Amlodipine Besylate (Norvasc) 10 mg PO DAILY [facility] Last Admin: 09/08/17 11:52 Dose: Not Given Aspirin (Aspirin Supp) 300 mg [place] DAILY [facility] Last Admin: 09/08/17 11:50 Dose: 300 mg Calcium Acetate (Phoslo) 1,334 mg PO TID [facility] Last Admin: 09/08/17 18:01 Dose: Not Given Clonidine HCl (Catapres-Tts3 0.3 Mg/24 Hr) 1 patch TD Q7D@1000 [facility] Enoxaparin Sodium (Lovenox) 30 mg SC DAILY [facility] Last Admin: 09/08/17 11:59 Dose: 30 mg Famotidine (Pepcid) 20 mg IVP DAILY [facility] Furosemide (Lasix) 40 mg PO DAILY [facility] Last Admin: 09/08/17 11:51 Dose: Not Given Hydralazine HCl (Apresoline) 10 mg IVP Q6H PRN PRN Reason: HTN Last Admin: 09/08/17 07:00 Dose: 10 mg Hydralazine HCl (Apresoline) 50 mg PO QID [facility] Last Admin: 09/08/17 18:02 Dose: Not Given Hydrochlorothiazide (Hydrodiuril) 25 mg PO DAILY [facility] Last Admin: 09/08/17 11:51 Dose: Not Given Labetalol HCl 300 mg/ Sodium (Chloride) 300 mls @ 120 mls/hr IV .Q2H30M PRN; Protocol; 2 MG/MIN PRN Reason: PER PROTOCOL Last Admin: 09/08/17 14:00 Dose: 2 mg/min, 120 mls/hr Insulin Human Regular (Novolin R) 0 unit SC ACHS [facility] PRN Reason: Protocol Last Admin: 09/08/17 11:52 Dose: Not Given Labetalol HCl (Trandate) 20 mg IVP Q6H [facility] Losartan Potassium (Cozaar) 100 mg PO DAILY [facility] Last Admin: 09/08/17 11:51 Dose: Not Given Minoxidil (Loniten) 10 mg PO DAILY [facility] Last Admin: 09/08/17 18:02 Dose: Not Given Rosuvastatin Calcium (Crestor) 20 mg PO HS [facility] Last Admin: 09/07/17 21:11 Dose: Not Given Results - Vital Signs Recent Vital Signs: Last Vital Signs Temp 98.2 F 09/08/17 16:00 Pulse 77 09/08/17 17:37 Resp 20 09/08/17 17:37 BP 172/71 H 09/08/17 17:37 Pulse Ox 97 09/08/17 17:37 - Labs Result Diagrams: 09/08/17 07:17 09/08/17 07:17 Labs: Laboratory Results - last 24 hr 09/07/17 09/07/17 09/08/17 18:24 20:48 06:17 WBC RBC Hgb Hct MCV MCH MCHC RDW Plt Count MPV Neut % (Auto) Lymph % (Auto) Stanton % (Auto) Eos % (Auto) Baso % (Auto) Neut # (Auto) Lymph # (Auto) Stanton # (Auto) Eos # (Auto) Baso # (Auto) Sodium Potassium Chloride Carbon Dioxide Anion Gap BUN Creatinine Est GFR ( Amer) Est GFR (Non-Af Amer) POC Glucose (mg/dL) 162 H 179 H Random Glucose Calcium Phosphorus Magnesium Total Bilirubin AST ALT Alkaline Phosphatase Total Protein Albumin Globulin Albumin/Globulin Ratio Hep Bs Antigen Negative 09/08/17 09/08/17 09/08/17 07:17 07:17 17:41 WBC 9.3 RBC 4.91 Hgb 11.0 Hct 34.0 MCV 69.2 L MCH 22.4 L MCHC 32.4 L RDW 21.5 H Plt Count 259 MPV 8.5 Neut % (Auto) 77.6 H Lymph % (Auto) 11.9 L Stanton % (Auto) 10.0 Eos % (Auto) 0.0 Baso % (Auto) 0.5 Neut # (Auto) 7.2 H Lymph # (Auto) 1.1 Stanton # (Auto) 0.9 H Eos # (Auto) 0.0 Baso # (Auto) 0.0 Sodium 145 Potassium 4.2 Chloride 96 L Carbon Dioxide 26 Anion Gap 28 H BUN 34 H Creatinine 6.6 H Est GFR ( Amer) 7 Est GFR (Non-Af Amer) 6 POC Glucose (mg/dL) 141 H Random Glucose 174 H Calcium 9.8 Phosphorus 6.3 H Magnesium 2.5 H Total Bilirubin 1.0 AST 25 ALT 14 Alkaline Phosphatase 92 Total Protein 7.9 Albumin 4.4 Globulin 3.5 Albumin/Globulin Ratio 1.3 Hep Bs Antigen Attending/Attestation - Attestation I have personally seen and examined this patient.: Yes I have fully participated in the care of the patient.: Yes I have reviewed all pertinent clinical information: Yes Notes (Text): 09/08/17 18:17 patient seen and examined in the intensive care unit. 72-year-old female with end-stage renal disease on dialysis transferred to ICU for elevated blood pressure. Initially started on IV nitrates but later switched to labetalol drip. Continue hemodialysis CAT scan of the head showed no acute bleed or stroke Continue present treatment
[2017-09-08] MEDS ORDERED: Labetalol 5 mg/ml Inj 20ML IV PRN (14:43)
[2017-09-08] MEDS ORDERED: Labetalol 300 MG in Sodium Chloride 0.9% 240 ML IV PRN (15:00)
--- NOTE | 2017-09-08 15:13 | VASCLAB ---
PROCEDURE: Ultrasonography renal arterial evaluation HISTORY: uncontrolled HTN, assess for renal stenosis COMPARISON: None available. TECHNIQUE: Real-time ultrasonography evaluation of the renal arteries were performed. Comparison is made to the aorta. Report prepared by YAMILETH Nelson, RVT FINDINGS: AORTA: Patent. Peak systolic velocity 112 centimeters/second RIGHT RENAL ARTERY: Renal artery to aorta ratio: * Proximal segment: Patent. Peak systolic velocity centimeters/second * Mid segment: Patent. Peak systolic velocity centimeters/second * Distal segment: Patent. Peak systolic velocity centimeters/second Other findings: Right Kidney measures approximately 8.76 centimeters. Right lower pole cyst measuring 3.8 x 4.7 cm LEFT RENAL ARTERY: Renal artery to aorta ratio: * Proximal segment: Patent. Peak systolic velocity centimeters/second * Mid segment: Patent. Peak systolic velocity centimeters/second * Distal segment: Patent. Peak systolic velocity centimeters/second Other findings: Left Kidney measures approximately centimeters. IMPRESSION: Cystic structure noted in the right kidney. Unable to image renal arteries. Technically limited and incomplete study due to patient intolerance.
[2017-09-08] MEDS: Nitroglycerin 50mg in D5W 50 MG/250 ML BOTTLE IV SCH (20:43)
[2017-09-09] MEDS ORDERED: (Novolin R) Insulin Human Regular 100 units/ml vial SC SCH ×2 (06:00→08:38)
[2017-09-09 06:08] LABS: BASO # 0.1 K/uL (0.0-0.2); EOS # 0.1 K/uL (0.0-0.7); EOS % 1.6 % (0.0-4.0); HEMOGLOBIN 9.9 g/dL (11.0-16.0); LYMPH # 1.2 K/uL (1.0-4.3); LYMPH % 15.7 % (20.0-40.0); MEAN CELL VOLUME 69.9 fL (81.0-99.0); MEAN CORPUSCULAR HEMOGLOBIN 22.1 pg (27.0-31.0); MEAN CORPUSCULAR HGB CONC 31.6 g/dL (33.0-37.0); MEAN PLATELET VOLUME 8.7 fL (7.2-11.7); MONO # 0.9 K/uL (0.0-0.8); NEUT # 5.2 K/uL (1.8-7.0); NEUT % 69.7 % (50.0-75.0); NRBC % 0.1 % (0.0-2.0); RBC 4.49 Mil/uL (3.80-5.20); RED CELL DISTRIBUTION WIDTH 21.8 % (11.5-14.5); WHITE BLOOD COUNT 7.4 K/uL (4.8-10.8)
[2017-09-09 06:37] LABS: ALB/GLOB RATIO 1.2 (1.0-2.1); ALBUMIN 3.7 g/dL (3.5-5.0); CALCIUM 8.9 mg/dl (8.6-10.4)
--- NOTE | 2017-09-09 08:10 | CP.PCM.PN ---
Subjective - Date & Time of Evaluation Date of Evaluation: 09/09/17 Time of Evaluation: 08:00 - Subjective Subjective: Patient was seen and examined by me. Overnight she was on a labetaolol ggt however by the morning it was changed back to a nitroglycerin ggt. Her blood pressures look a lot better this morning. It was 140 systolic when I just saw her at 8:00 am. Also during the night she was about 150 to 160 systolic. She also got clonodine transdermal patch as well. She is much more awake now. She was able to elevate both legs for > 10 seconds and both arms > 10 seconds. She was also able to flex and extend both elbows as well. She was able to recall her name as well as her birthday - however very slowly. She tried to make us laugh by sticking out her tounge at us during exam. She came across as pleasantly demented on exam. Hopefully she will pass the swallow exam and then she will be cooperative enough to take PO medications. Objective - Vital Signs/Intake and Output Vital Signs (last 24 hours): Temp Pulse Resp BP Pulse Ox 98.5 F 80 18 146/72 98 09/09/17 04:00 09/09/17 07:45 09/09/17 07:45 09/09/17 07:33 09/09/17 07:45 Intake and Output: 09/09/17 09/09/17 06:59 18:59 Intake Total 568.5 21 Balance 568.5 21 - Medications Medications: Current Medications Amlodipine Besylate (Norvasc) 10 mg PO DAILY [facility] Last Admin: 09/08/17 11:52 Dose: Not Given Aspirin (Aspirin Supp) 300 mg [place] DAILY [facility] Last Admin: 09/08/17 11:50 Dose: 300 mg Calcium Acetate (Phoslo) 1,334 mg PO TID [facility] Last Admin: 09/08/17 18:01 Dose: Not Given Clonidine HCl (Catapres-Tts3 0.3 Mg/24 Hr) 1 patch TD Q7D@1000 [facility] Last Admin: 09/08/17 21:10 Dose: 1 patch Enoxaparin Sodium (Lovenox) 30 mg SC DAILY [facility] Last Admin: 09/08/17 11:59 Dose: 30 mg Famotidine (Pepcid) 20 mg IVP DAILY [facility] Last Admin: 09/08/17 15:00 Dose: 20 mg Furosemide (Lasix) 40 mg PO DAILY [facility] Last Admin: 09/08/17 11:51 Dose: Not Given Hydralazine HCl (Apresoline) 10 mg IVP Q6H PRN PRN Reason: HTN Last Admin: 09/09/17 03:29 Dose: 10 mg Hydralazine HCl (Apresoline) 50 mg PO QID [facility] Last Admin: 09/08/17 21:53 Dose: Not Given Hydrochlorothiazide (Hydrodiuril) 25 mg PO DAILY [facility] Last Admin: 09/08/17 11:51 Dose: Not Given Labetalol HCl 300 mg/ Sodium (Chloride) 300 mls @ 120 mls/hr IV .Q2H30M PRN; Protocol; 2 MG/MIN PRN Reason: PER PROTOCOL Last Titration: 09/08/17 19:46 Dose: 2 mg/min, 120 mls/hr Nitroglycerin/Dextrose (Nitroglycerin 50 Mg/250 Ml D5w) 50 mg in 250 mls @ 7.5 mls/hr IV .Q24H [facility]; 25 MCG/MIN PRN Reason: Protocol Last Titration: 09/09/17 06:00 Dose: 70 mcg/min, 21 mls/hr Insulin Human Regular (Novolin R) 0 unit SC Q6H [facility] PRN Reason: Protocol Last Admin: 09/09/17 06:06 Dose: 6 unit Labetalol HCl (Trandate) 20 mg IVP Q6H [facility] Losartan Potassium (Cozaar) 100 mg PO DAILY [facility] Last Admin: 09/08/17 11:51 Dose: Not Given Minoxidil (Loniten) 10 mg PO DAILY [facility] Last Admin: 09/08/17 18:02 Dose: Not Given Rosuvastatin Calcium (Crestor) 20 mg PO HS [facility] Last Admin: 09/08/17 21:53 Dose: Not Given - Labs Labs: 09/09/17 06:03 09/09/17 06:03 PT 12.8 SECONDS (9.7-12.2) H 09/05/17 20:16 INR 1.1 09/05/17 20:16 APTT 32 SECONDS (21-34) 09/05/17 20:16 - Constitutional Appears: No Acute Distress, Confused, Chronically Ill - Head Exam Head Exam: NORMAL INSPECTION, NORMOCEPHALIC - Eye Exam Eye Exam: EOMI, Normal appearance - ENT Exam ENT Exam: Mucous Membranes Moist - Respiratory Exam Respiratory Exam: Clear to Ausculation Bilateral, NORMAL BREATHING PATTERN - Cardiovascular Exam Cardiovascular Exam: REGULAR RHYTHM - GI/Abdominal Exam GI & Abdominal Exam: Soft. absent: Firm, Guarding, Rigid, Tenderness - Neurological Exam Neurological Exam: Alert, Altered, Awake. absent: Oriented x3 Neuro motor strength exam: Left Upper Extremity: 4, Right Upper Extremity: 4, Left Lower Extremity: 4, Right Lower Extremity: 4 - Psychiatric Exam Psychiatric exam: Flat Affect - Skin Skin Exam: Normal Color, Warm Assessment and Plan - Assessment and Plan (Free Text) Assessment: Hypertensive Emergency 09/09: Today this morning mental status seems better. Following basic commands again. Blood pressure now lower. On Nitroglycerin ggt and transdermal clonodine this morning. 09/08: Now moved to the ICU and on nitroglycerin ggt and labetalol ggt. As mentioned before she is refusing PO medications and we can't put an NGT in She also had topical nitroglycerin and this had no affect. Hopefully with the nitroglycerin ggt and labetalol ggt it will lower BP and she will now be encephlopathy So far the imaging does not show a CVA Altered Mental Status 09/09: As mentioned above, the AMS probably is HTN emergency/encephalopathy. Today more awake and alert with lower BPs. Hopefully after swallow evaluation she will take PO medications 09/08: Patient does have baseline dementia. The severe HTN is likley causing ecephalopathy as well/ Imaging: CT head w/o contrast: Atrophy and small vessel disease, no bleed MRI Brain w/o contast: Suboptimal diagnostic quality due to patient motion. No acute intracranial abnormality. Moderate chronic microangiopathic changes and moderate age-related global parenchymal volume loss. MRA Head and Neck: Normal MR angiography of the brain; Normal MR Angiography of the neck. F/U EEG Elevated Troponins Likely 2/2 ESRD No chest pain or palpitations Likely related to HTN emergency ROMIx 3 Elevated: 0.1270 --> 0.1440--> 0.1290 Lipid Panel- WNL ESRD on Hemodialysis Nephrology consult, Dr Lukas Borrego - help appreciated HD TTS Cont home med Calcium Acetate 1334mg PO TID Type 2 Diabetes Mellitus Accuchecks ISS - medium dose Diabetic Diet Crestor 20mg PO QHS Prophylactic Measures GI prophylaxis not indicated SCDs, Lovenox 40mg SC QD Diabetic diet w/ salt restriction
[2017-09-09] MEDS: Nitroglycerin 50mg in D5W 50 MG/250 ML BOTTLE IV SCH ×2 (08:35→20:51)
--- NOTE | 2017-09-09 09:35 | CP.PCM.PN ---
Subjective - Date & Time of Evaluation Date of Evaluation: 09/09/17 Time of Evaluation: 09:33 - Subjective Subjective: pt seen and examined awake, more alert on tridal drip BP 138/70 afebrile no nausua or vomiting ROS- as per HPI, other than that 10 point ROS negative Objective - Vital Signs/Intake and Output Vital Signs (last 24 hours): Temp Pulse Resp BP Pulse Ox 98.5 F 61 20 158/79 H 98 09/09/17 08:00 09/09/17 08:45 09/09/17 08:45 09/09/17 08:35 09/09/17 08:45 Intake and Output: 09/09/17 09/09/17 06:59 18:59 Intake Total 568.5 98 Balance 568.5 98 - Medications Medications: Current Medications Amlodipine Besylate (Norvasc) 10 mg PO DAILY [facility] Last Admin: 09/08/17 11:52 Dose: Not Given Aspirin (Aspirin Supp) 300 mg [place] DAILY [facility] Last Admin: 09/08/17 11:50 Dose: 300 mg Calcium Acetate (Phoslo) 1,334 mg PO TID [facility] Last Admin: 09/08/17 18:01 Dose: Not Given Clonidine HCl (Catapres-Tts3 0.3 Mg/24 Hr) 1 patch TD Q7D@1000 [facility] Last Admin: 09/08/17 21:10 Dose: 1 patch Enoxaparin Sodium (Lovenox) 30 mg SC DAILY [facility] Last Admin: 09/08/17 11:59 Dose: 30 mg Famotidine (Pepcid) 20 mg IVP DAILY [facility] Last Admin: 09/08/17 15:00 Dose: 20 mg Furosemide (Lasix) 40 mg PO DAILY [facility] Last Admin: 09/08/17 11:51 Dose: Not Given Hydralazine HCl (Apresoline) 10 mg IVP Q6H PRN PRN Reason: HTN Last Admin: 09/09/17 03:29 Dose: 10 mg Hydralazine HCl (Apresoline) 50 mg PO QID [facility] Last Admin: 09/08/17 21:53 Dose: Not Given Hydrochlorothiazide (Hydrodiuril) 25 mg PO DAILY [facility] Last Admin: 09/08/17 11:51 Dose: Not Given Labetalol HCl 300 mg/ Sodium (Chloride) 300 mls @ 120 mls/hr IV .Q2H30M PRN; Protocol; 2 MG/MIN PRN Reason: PER PROTOCOL Last Titration: 09/08/17 19:46 Dose: 2 mg/min, 120 mls/hr Nitroglycerin/Dextrose (Nitroglycerin 50 Mg/250 Ml D5w) 50 mg in 250 mls @ 7.5 mls/hr IV .Q24H [facility]; 25 MCG/MIN PRN Reason: Protocol Last Admin: 09/09/17 08:35 Dose: 70 mcg/min, 21 mls/hr Insulin Human Regular (Novolin R) 0 unit SC Q6H [facility] PRN Reason: Protocol Labetalol HCl (Trandate) 20 mg IVP Q6H [facility] Losartan Potassium (Cozaar) 100 mg PO DAILY [facility] Last Admin: 09/08/17 11:51 Dose: Not Given Minoxidil (Loniten) 10 mg PO DAILY [facility] Last Admin: 09/08/17 18:02 Dose: Not Given Rosuvastatin Calcium (Crestor) 20 mg PO HS [facility] Last Admin: 09/08/17 21:53 Dose: Not Given - Labs Labs: 09/09/17 06:03 09/09/17 06:03 PT 12.8 SECONDS (9.7-12.2) H 09/05/17 20:16 INR 1.1 09/05/17 20:16 APTT 32 SECONDS (21-34) 09/05/17 20:16 - Constitutional Appears: Non-toxic, Older Than Stated Age, Chronically Ill - Head Exam Head Exam: ATRAUMATIC, NORMOCEPHALIC - Eye Exam Eye Exam: EOMI Pupil Exam: PERRL - ENT Exam ENT Exam: Mucous Membranes Moist - Neck Exam Neck Exam: Full ROM - Respiratory Exam Respiratory Exam: Clear to Ausculation Bilateral. absent: Rhonchi, Wheezes - Cardiovascular Exam Cardiovascular Exam: REGULAR RHYTHM, +S1, +S2 - GI/Abdominal Exam GI & Abdominal Exam: Soft. absent: Tenderness - Extremities Exam Extremities Exam: absent: Pedal Edema, Tenderness - Neurological Exam Neurological Exam: Awake. absent: Oriented x3 - Psychiatric Exam Psychiatric exam: Normal Affect, Normal Mood - Skin Skin Exam: Intact, Warm Assessment and Plan (1) Altered mental state Status: Acute (2) Hypertensive emergency Status: Acute (3) End-stage renal disease on hemodialysis Status: Chronic (4) Anemia Status: Chronic (5) Type 2 diabetes mellitus Status: Chronic - Assessment and Plan (Free Text) Plan: hd toda y BP better for swallow eval today - if passes, to resume po bp meds and wean off tridal
[2017-09-09] MEDS: Enoxaparin 30 mg Syringe SC SCH (11:00)
[2017-09-09] MEDS: (Novolin R) Insulin Human Regular 100 units/ml vial SC SCH ×2 (12:00→17:46)
--- NOTE | 2017-09-09 16:20 | CP.PCM.PN ---
Subjective - Date & Time of Evaluation Date of Evaluation: 11/09/17 Time of Evaluation: 16:05 - Subjective Subjective: Patient lying in bed, comfortable and perseverates. Neuroimaging reviewed and there are no strokes, no hemorrhages, no tumors. Following commands, and awake. Hypertensive, post dialysis. on exam: Neuro exam unchanged. Language testing shows that she has aphasia, and cannot name certain objects, moves all extremities. gait not tested. +2 dtr ul and ll bl. Toes downgoing bl. Objective - Vital Signs/Intake and Output Vital Signs (last 24 hours): Temp Pulse Resp BP Pulse Ox 98.5 F 88 16 165/83 H 95 09/09/17 10:52 09/09/17 14:45 09/09/17 14:45 09/09/17 14:27 09/09/17 14:45 Intake and Output: 09/09/17 09/09/17 06:59 18:59 Intake Total 568.5 251 Balance 568.5 251 - Medications Medications: Current Medications Amlodipine Besylate (Norvasc) 10 mg PO DAILY [facility] Last Admin: 09/09/17 15:54 Dose: 10 mg Aspirin (Aspirin Supp) 300 mg MS DAILY [facility] Last Admin: 09/08/17 11:50 Dose: 300 mg Calcium Acetate (Phoslo) 1,334 mg PO TID [facility] Last Admin: 09/09/17 15:00 Dose: 1,334 mg Clonidine HCl (Catapres-Tts3 0.3 Mg/24 Hr) 1 patch TD Q7D@1000 [facility] Last Admin: 09/08/17 21:10 Dose: 1 patch Enoxaparin Sodium (Lovenox) 30 mg SC DAILY [facility] Last Admin: 09/09/17 11:00 Dose: 30 mg Famotidine (Pepcid) 20 mg IVP DAILY [facility] Last Admin: 09/09/17 15:18 Dose: 20 mg Hydralazine HCl (Apresoline) 10 mg IVP Q6H PRN PRN Reason: HTN Last Admin: 09/09/17 03:29 Dose: 10 mg Hydralazine HCl (Apresoline) 50 mg PO QID [facility] Last Admin: 09/09/17 15:00 Dose: 50 mg Labetalol HCl 300 mg/ Sodium (Chloride) 300 mls @ 120 mls/hr IV .Q2H30M PRN; Protocol; 2 MG/MIN PRN Reason: PER PROTOCOL Last Titration: 09/08/17 19:46 Dose: 2 mg/min, 120 mls/hr Nitroglycerin/Dextrose (Nitroglycerin 50 Mg/250 Ml D5w) 50 mg in 250 mls @ 7.5 mls/hr IV .Q24H JUAN RAMON; 25 MCG/MIN PRN Reason: Protocol Last Titration: 09/09/17 12:15 Dose: 30 mcg/min, 9 mls/hr Insulin Human Regular (Novolin R) 0 unit SC Q6H JUAN RAMON PRN Reason: Protocol Last Admin: 09/09/17 12:00 Dose: Not Given Labetalol HCl (Trandate) 20 mg IVP Q6H JUAN RAMON Losartan Potassium (Cozaar) 100 mg PO DAILY JU[facility] RAMON Last Admin: 09/09/17 15:11 Dose: 100 mg Rosuvastatin Calcium (Crestor) 20 mg PO HS JUAN RAMON Last Admin: 09/08/17 21:53 Dose: Not Given - Labs Labs: 09/09/17 06:03 09/09/17 06:03 PT 12.8 SECONDS (9.7-12.2) H 09/05/17 20:16 INR 1.1 09/05/17 20:16 APTT 32 SECONDS (21-34) 09/05/17 20:16 Assessment and Plan - Assessment and Plan (Free Text) Assessment: 72 yr old woman with hypertensive emergency who has baseline dementia and most likely has baseline aphasia. plan: 1. cntinue current care
--- NOTE | 2017-09-09 17:57 | CP.CCUPN ---
CCU Subjective - Physician Review Events Since Last Encounter (Free Text): 09/09/17 17:57 Mrs Lopez is a 72 year old female with a PMHx of DM2 and ESRD on HD who was brought to [facility] ER because her BP during her HD dialysis session was found to be over 200 systolic. She was given clonidine 0.2mg (twice ) during HD however there was not much improvement in the BP. In addition, her son and [id number] have noticed increasing confusion over the past two days - such as not being able to recall their names. At baseline she has some level of dementia but relatives feel she has been more forgetful and confused the past 2 days. They did not notice the patient have any focal deficits or facial droop or difficulty speaking. At baseline patient ambulates without assistance. ICU was consulted due to her blood pressure remaining in the 200's systolic while on medication. ED Course: Hydralazine, Enalaprilat, CT Head, EKG, CXR, Blood Cx, Urine Cx, UA PMD: Dr Cheung ([place]) PMHx: DM2 w/ ESRD on HD TTS PSHx: renal biopsy 2015, bone marrow biopsy 2013, colonoscopy 2013 Allergies: NKA Home meds: Calcium Acetate 1334mg PO TID, Hydralazine 25mg PO QID, Norvasc 10mg PO QD, Lasix 40mg PO QD FamHx: Denies SocialHx: Denied hx of tobacco, alcohol or illicit drug use; lives with son at home She is on nitroglycerin drip right now. More awake and responding. Following simple commands. We will be getting the hemodialysis Once the nitroglycerin is discontinued and patient can be transferred to floor 09/09/17 17:57 CCU Objective - Vital Signs / Intake & Output Vital Signs (Last 4 hours): Vital Signs Temp Pulse Pulse Resp BP BP Pulse Ox 09/09/17 17:30 92 H 13 09/09/17 17:28 94 H 18 150/65 09/09/17 17:15 90 13 09/09/17 17:00 88 19 09/09/17 16:45 90 20 09/09/17 16:30 90 21 09/09/17 16:27 90 28 H 124/60 09/09/17 16:25 89 14 124/62 09/09/17 16:15 92 H 11 L 09/09/17 16:00 99.3 F 92 H 20 98 09/09/17 15:45 90 14 09/09/17 15:30 89 18 09/09/17 15:27 89 12 175/82 H 09/09/17 15:15 90 21 09/09/17 15:00 90 21 09/09/17 14:45 88 16 95 09/09/17 14:30 88 17 09/09/17 14:27 86 18 165/83 H 96 09/09/17 14:15 85 11 L 158/82 H 97 09/09/17 14:10 86 158/82 H 09/09/17 14:02 82 22 91/55 L 97 09/09/17 14:00 85 16 89/50 L 89/50 L 96 Intake and Output (Last 8hrs): Intake & Output 09/09/17 09/09/17 09/09/17 06:59 14:59 22:59 Intake Total 268.5 251 24 Balance 268.5 251 24 Weight 122 lb 8 oz Intake: IV 138 122 Intake, IV Amount 130.5 129 24 Right Forearm 130.5 129 24 Other: # Bowel Movements 1 - Medications Active Medications: Active Medications Generic Name Dose Route Start Last Admin Trade Name Freq PRN Reason Stop Dose Admin Amlodipine Besylate 10 mg 09/06/17 10:00 09/09/17 15:54 Norvasc PO 10 mg DAILY JUAN RAMON Administration Aspirin 325 mg 09/09/17 17:00 09/09/17 17:04 Aspirin PO 325 mg DAILY JUAN RAMON Administration Calcium Acetate 1,334 mg 09/06/17 10:00 09/09/17 15:00 Phoslo PO 1,334 mg TID JUAN RAMON Administration Clonidine HCl 1 patch 09/08/17 21:00 09/08/17 21:10 Catapres-Tts3 0.3 Mg/24 Hr TD 1 patch Q7D@1000 JUAN RAMON Administration Enoxaparin Sodium 30 mg 09/06/17 10:00 09/09/17 11:00 Lovenox SC 30 mg DAILY JUAN RAMON Administration Famotidine 20 mg 09/08/17 14:45 09/09/17 15:18 Pepcid IVP 20 mg DAILY JUAN RAMON Administration Hydralazine HCl 10 mg 09/06/17 08:58 09/09/17 03:29 Apresoline IVP 10 mg Q6H PRN Administration HTN Hydralazine HCl 50 mg 09/06/17 10:07 09/09/17 15:00 Apresoline PO 50 mg QID JUAN RAMON Administration Labetalol HCl 300 mg/ Sodium 300 mls @ 120 mls/hr 09/08/17 15:00 09/08/17 19: 46 Chloride IV 2 mg/min .Q2H30M PRN 120 mls/hr PER PROTOCOL Titration Protocol 2 MG/MIN Nitroglycerin/Dextrose 50 mg in 250 mls @ 7.5 mls/hr 09/08/17 20:45 09/09/17 12:15 Nitroglycerin 50 Mg/250 Ml D5w IV 30 mcg/min .Q24H JUAN RAMON 9 mls/hr Protocol Titration 25 MCG/MIN Insulin Human Regular 0 unit 09/09/17 12:00 09/09/17 17:46 Novolin R SC Not Given Q6H [facility] Protocol Labetalol HCl 20 mg 09/08/17 17:00 Trandate IVP Q6H JUAN RAMON Losartan Potassium 100 mg 09/07/17 10:00 09/09/17 15:11 Cozaar PO 100 mg DAILY JUAN RAMON Administration Rosuvastatin Calcium 20 mg 09/06/17 08:27 09/08/17 21:53 Crestor PO Not Given HS [facility] - Patient Studies Lab Studies: Microbiology Studies 09/06/17 17:00 Blood Culture - Preliminary Blood NO GROWTH AFTER 3 DAYS 09/05/17 20:12 Blood Culture - Preliminary Blood NO GROWTH AFTER 3 DAYS 09/05/17 20:30 Blood Culture - Preliminary Blood NO GROWTH AFTER 3 DAYS Lab Studies 09/09/17 09/09/17 09/09/17 Range/Units 17:41 11:33 06:03 WBC (4.8-10.8) K/uL RBC (3.80-5.20) Mil/uL Hgb (11.0-16.0) g/dL Hct (34.0-47.0) % MCV (81.0-99.0) fL MCH (27.0-31.0) pg MCHC (33.0-37.0) g/dL RDW (11.5-14.5) % Plt Count (130-400) K/uL MPV (7.2-11.7) fL Neut % (Auto) (50.0-75.0) % Lymph % (Auto) (20.0-40.0) % [place] % (Auto) (0.0-10.0) % Eos % (Auto) (0.0-4.0) % Baso % (Auto) (0.0-2.0) % Neut # (Auto) (1.8-7.0) K/uL Lymph # (Auto) (1.0-4.3) K/uL [place] # (Auto) (0.0-0.8) K/uL Eos # (Auto) (0.0-0.7) K/uL Baso # (Auto) (0.0-0.2) K/uL Sodium 142 (132-148) mmol/L Potassium 4.2 (3.6-5.2) mmol/L Chloride 97 L (98-107) mmol/L Carbon Dioxide 26 (22-30) mmol/L Anion Gap 23 H (10-20) BUN 53 H (7-17) mg/dL Creatinine 8.6 H* D (0.7-1.2) mg/dL Est GFR ( Amer) 5 Est GFR (Non-Af Amer) 5 POC Glucose (mg/dL) 128 H 81 (65-110) mg/dL Random Glucose 223 H (65-105) mg/dL Calcium 8.9 (8.6-10.4) mg/dl Phosphorus 7.0 H (2.5-4.5) mg/dL Magnesium 2.6 H (1.6-2.3) mg/dL Total Bilirubin 1.0 (0.2-1.3) mg/dL AST 19 (14-36) U/L ALT 13 (9-52) U/L Alkaline Phosphatase 68 (38-126) U/L Total Protein 6.7 (6.3-8.3) g/dL Albumin 3.7 (3.5-5.0) g/dL Globulin 3.1 (2.2-3.9) gm/dL Albumin/Globulin Ratio 1.2 (1.0-2.1) 09/09/17 09/09/17 09/08/17 Range/Units 06:03 05:08 23:49 WBC 7.4 (4.8-10.8) K/uL RBC 4.49 (3.80-5.20) Mil/uL Hgb 9.9 L (11.0-16.0) g/dL Hct 31.4 L (34.0-47.0) % MCV 69.9 L (81.0-99.0) fL MCH 22.1 L (27.0-31.0) pg MCHC 31.6 L (33.0-37.0) g/dL RDW 21.8 H (11.5-14.5) % Plt Count 231 (130-400) K/uL MPV 8.7 (7.2-11.7) fL Neut % (Auto) 69.7 (50.0-75.0) % Lymph % (Auto) 15.7 L (20.0-40.0) % [place] % (Auto) 12.0 H (0.0-10.0) % Eos % (Auto) 1.6 (0.0-4.0) % Baso % (Auto) 1.0 (0.0-2.0) % Neut # (Auto) 5.2 (1.8-7.0) K/uL Lymph # (Auto) 1.2 (1.0-4.3) K/uL [place] # (Auto) 0.9 H (0.0-0.8) K/uL Eos # (Auto) 0.1 (0.0-0.7) K/uL Baso # (Auto) 0.1 (0.0-0.2) K/uL Sodium (132-148) mmol/L Potassium (3.6-5.2) mmol/L Chloride (98-107) mmol/L Carbon Dioxide (22-30) mmol/L Anion Gap (10-20) BUN (7-17) mg/dL Creatinine (0.7-1.2) mg/dL Est GFR ( Amer) Est GFR (Non-Af Amer) POC Glucose (mg/dL) 309 H 128 H (65-110) mg/dL Random Glucose (65-105) mg/dL Calcium (8.6-10.4) mg/dl Phosphorus (2.5-4.5) mg/dL Magnesium (1.6-2.3) mg/dL Total Bilirubin (0.2-1.3) mg/dL AST (14-36) U/L ALT (9-52) U/L Alkaline Phosphatase (38-126) U/L Total Protein (6.3-8.3) g/dL Albumin (3.5-5.0) g/dL Globulin (2.2-3.9) gm/dL Albumin/Globulin Ratio (1.0-2.1) Laboratory Results - last 24 hr 09/08/17 09/09/17 09/09/17 23:49 05:08 06:03 WBC 7.4 RBC 4.49 Hgb 9.9 L Hct 31.4 L MCV 69.9 L MCH 22.1 L MCHC 31.6 L RDW 21.8 H Plt Count 231 MPV 8.7 Neut % (Auto) 69.7 Lymph % (Auto) 15.7 L [place] % (Auto) 12.0 H Eos % (Auto) 1.6 Baso % (Auto) 1.0 Neut # (Auto) 5.2 Lymph # (Auto) 1.2 [place] # (Auto) 0.9 H Eos # (Auto) 0.1 Baso # (Auto) 0.1 Sodium Potassium Chloride Carbon Dioxide Anion Gap BUN Creatinine Est GFR ( Amer) Est GFR (Non-Af Amer) POC Glucose (mg/dL) 128 H 309 H Random Glucose Calcium Phosphorus Magnesium Total Bilirubin AST ALT Alkaline Phosphatase Total Protein Albumin Globulin Albumin/Globulin Ratio 09/09/17 09/09/17 09/09/17 06:03 11:33 17:41 WBC RBC Hgb Hct MCV MCH MCHC RDW Plt Count MPV Neut % (Auto) Lymph % (Auto) [place] % (Auto) Eos % (Auto) Baso % (Auto) Neut # (Auto) Lymph # (Auto) [place] # (Auto) Eos # (Auto) Baso # (Auto) Sodium 142 Potassium 4.2 Chloride 97 L Carbon Dioxide 26 Anion Gap 23 H BUN 53 H Creatinine 8.6 H* D Est GFR ( Amer) 5 Est GFR (Non-Af Amer) 5 POC Glucose (mg/dL) 81 128 H Random Glucose 223 H Calcium 8.9 Phosphorus 7.0 H Magnesium 2.6 H Total Bilirubin 1.0 AST 19 ALT 13 Alkaline Phosphatase 68 Total Protein 6.7 Albumin 3.7 Globulin 3.1 Albumin/Globulin Ratio 1.2 Fingerstick Blood Sugar Results: 128 Critical Care Progress Note - Nutrition Nutrition: Nutrition Category Date Time Status Dysphagia/Modified Consistency Diet [DIET] Diets 09/09/17 Lunch Active
[2017-09-10] MEDS: (Novolin R) Insulin Human Regular 100 units/ml vial SC SCH ×4 (00:10→18:00)
[2017-09-10 06:00] LABS: BASO # 0.1 K/uL (0.0-0.2); BASO % 1.4 % (0.0-2.0); EOS # 0.3 K/uL (0.0-0.7); EOS % 3.5 % (0.0-4.0); HEMOGLOBIN 11.4 g/dL (11.0-16.0); LYMPH # 2.1 K/uL (1.0-4.3); LYMPH % 24.5 % (20.0-40.0); MEAN CELL VOLUME 70.7 fL (81.0-99.0); MEAN CORPUSCULAR HEMOGLOBIN 22.2 pg (27.0-31.0); MEAN CORPUSCULAR HGB CONC 31.4 g/dL (33.0-37.0); MEAN PLATELET VOLUME 8.6 fL (7.2-11.7); MONO % 11.8 % (0.0-10.0); NEUT # 5.1 K/uL (1.8-7.0); NEUT % 58.8 % (50.0-75.0); RBC 5.13 Mil/uL (3.80-5.20); RED CELL DISTRIBUTION WIDTH 21.3 % (11.5-14.5); WHITE BLOOD COUNT 8.7 K/uL (4.8-10.8)
[2017-09-10 06:17] LABS: ALB/GLOB RATIO 1.1 (1.0-2.1); ALBUMIN 4.1 g/dL (3.5-5.0); CALCIUM 9.5 mg/dl (8.6-10.4)
--- NOTE | 2017-09-10 08:06 | CP.PCM.PN ---
Subjective - Date & Time of Evaluation Date of Evaluation: 09/10/17 Time of Evaluation: 08:00 - Subjective Subjective: Patient was seen and examined. She was sleeping when I came and saw her. Earlier in the day ICU team was able to get her to take some of the PO blood pressure medication. It has to be crushed in applesauce. The systolic BP was in the 120s - 130s range. Will stop the nitroglycerin ggt now. Later on hopefully can be moved out of ICU. Objective - Vital Signs/Intake and Output Vital Signs (last 24 hours): Temp Pulse Resp BP Pulse Ox 98.1 F 97 H 21 142/56 L 99 09/10/17 05:00 09/10/17 07:00 09/10/17 07:00 09/10/17 06:26 09/10/17 05:00 Intake and Output: 09/10/17 09/10/17 06:59 18:59 Intake Total 3 Balance 3 - Medications Medications: Current Medications Amlodipine Besylate (Norvasc) 10 mg PO DAILY [facility] Last Admin: 09/09/17 15:54 Dose: 10 mg Aspirin (Aspirin) 325 mg PO DAILY [facility] Last Admin: 09/09/17 17:04 Dose: 325 mg Calcium Acetate (Phoslo) 1,334 mg PO TID [facility] Last Admin: 09/09/17 18:46 Dose: 1,334 mg Clonidine HCl (Catapres-Tts3 0.3 Mg/24 Hr) 1 patch TD Q7D@1000 [facility] Last Admin: 09/08/17 21:10 Dose: 1 patch Enoxaparin Sodium (Lovenox) 30 mg SC DAILY [facility] Last Admin: 09/09/17 11:00 Dose: 30 mg Famotidine (Pepcid) 20 mg IVP DAILY [facility] Last Admin: 09/09/17 15:18 Dose: 20 mg Hydralazine HCl (Apresoline) 10 mg IVP Q6H PRN PRN Reason: HTN Last Admin: 09/09/17 03:29 Dose: 10 mg Hydralazine HCl (Apresoline) 50 mg PO QID [facility] Last Admin: 09/09/17 21:51 Dose: Not Given Labetalol HCl 300 mg/ Sodium (Chloride) 300 mls @ 120 mls/hr IV .Q2H30M PRN; Protocol; 2 MG/MIN PRN Reason: PER PROTOCOL Last Titration: 09/08/17 19:46 Dose: 2 mg/min, 120 mls/hr Insulin Human Regular (Novolin R) 0 unit SC Q6H JUAN RAMON PRN Reason: Protocol Last Admin: 09/10/17 06:26 Dose: 2 unit Labetalol HCl (Trandate) 20 mg IVP Q6H [facility] Losartan Potassium (Cozaar) 100 mg PO DAILY [facility] Last Admin: 09/09/17 15:11 Dose: 100 mg Rosuvastatin Calcium (Crestor) 20 mg PO HS [facility] Last Admin: 09/09/17 21:52 Dose: 20 mg - Labs Labs: 09/10/17 05:51 09/10/17 05:51 PT 12.8 SECONDS (9.7-12.2) H 09/05/17 20:16 INR 1.1 09/05/17 20:16 APTT 32 SECONDS (21-34) 09/05/17 20:16 - Constitutional Appears: Unkempt, Older Than Stated Age, Chronically Ill - ENT Exam ENT Exam: Mucous Membranes Moist - Respiratory Exam Respiratory Exam: Clear to Ausculation Bilateral, NORMAL BREATHING PATTERN - Cardiovascular Exam Cardiovascular Exam: REGULAR RHYTHM - Neurological Exam Neurological Exam: Altered Neuro motor strength exam: Left Upper Extremity: 4, Right Upper Extremity: 4 - Psychiatric Exam Psychiatric exam: Depressed, Flat Affect - Skin Skin Exam: Normal Color, Warm Assessment and Plan - Assessment and Plan (Free Text) Assessment: Hypertensive Emergency 09/10: BP systolic is 120s to 130s. She was able to take PO Norvasc, Cozzarr, and Clonodine transdermal. Will stop the IV nitroglycerin ggt 09/09: Today this morning mental status seems better. Following basic commands again. Blood pressure now lower. On Nitroglycerin ggt and transdermal clonodine this morning. 09/08: Now moved to the ICU and on nitroglycerin ggt and labetalol ggt. As mentioned before she is refusing PO medications and we can't put an NGT in She also had topical nitroglycerin and this had no affect. Hopefully with the nitroglycerin ggt and labetalol ggt it will lower BP and she will now be encephlopathy So far the imaging does not show a CVA Altered Mental Status 09/10: BP is better, will stop nitroglycerin ggt and resume some PO BP medications 09/09: As mentioned above, the AMS probably is HTN emergency/encephalopathy. Today more awake and alert with lower BPs. Hopefully after swallow evaluation she will take PO medications 09/08: Patient does have baseline dementia. The severe HTN is likley causing ecephalopathy as well/ Imaging: CT head w/o contrast: Atrophy and small vessel disease, no bleed MRI Brain w/o contast: Suboptimal diagnostic quality due to patient motion. No acute intracranial abnormality. Moderate chronic microangiopathic changes and moderate age-related global parenchymal volume loss. MRA Head and Neck: Normal MR angiography of the brain; Normal MR Angiography of the neck. F/U EEG Elevated Troponins Likely 2/2 ESRD No chest pain or palpitations Likely related to HTN emergency ROMIx 3 Elevated: 0.1270 --> 0.1440--> 0.1290 Lipid Panel- WNL ESRD on Hemodialysis Nephrology consult, Dr Lukas Borrego - help appreciated HD TTS Cont home med Calcium Acetate 1334mg PO TID Type 2 Diabetes Mellitus Accuchecks ISS - medium dose Diabetic Diet Crestor 20mg PO QHS Prophylactic Measures GI prophylaxis not indicated SCDs, Lovenox 40mg SC QD Diabetic diet w/ salt restriction
[2017-09-10] MEDS: Enoxaparin 30 mg Syringe SC SCH (09:45)
[2017-09-10] MEDS ORDERED: Iodixanol 320 MG/ML 100 ML BOTTLE IV ONE (10:10)
--- NOTE | 2017-09-10 10:33 | CP.CCUPN ---
CCU Subjective - Physician Review Events Since Last Encounter (Free Text): 09/10/17 10:32 Mrs Lopez is a 72 year old female with a PMHx of DM2 and ESRD on HD who was brought to [facility] ER because her BP during her HD dialysis session was found to be over 200 systolic. She was given clonidine 0.2mg (twice ) during HD however there was not much improvement in the BP. In addition, her son and [id number] have noticed increasing confusion over the past two days - such as not being able to recall their names. At baseline she has some level of dementia but relatives feel she has been more forgetful and confused the past 2 days. They did not notice the patient have any focal deficits or facial droop or difficulty speaking. At baseline patient ambulates without assistance. ICU was consulted due to her blood pressure remaining in the 200's systolic while on medication. ED Course: Hydralazine, Enalaprilat, CT Head, EKG, CXR, Blood Cx, Urine Cx, UA PMD: Dr Cheung ([place]) PMHx: DM2 w/ ESRD on HD TTS PSHx: renal biopsy 2015, bone marrow biopsy 2013, colonoscopy 2013 Allergies: NKA Home meds: Calcium Acetate 1334mg PO TID, Hydralazine 25mg PO QID, Norvasc 10mg PO QD, Lasix 40mg PO QD FamHx: Denies SocialHx: Denied hx of tobacco, alcohol or illicit drug use; lives with son at home More awake and responding. Following simple commands. We will be getting the hemodialysis nitroglycerin was discontinued now. There is a some changes in the mental status, recommend a CAT scan. Neurological watch Neurological team was alerted. Continue the current close monitoring CCU Objective - Vital Signs / Intake & Output Vital Signs (Last 4 hours): Vital Signs Pulse Resp 09/10/17 07:00 97 H 21 Intake and Output (Last 8hrs): Intake & Output 09/09/17 09/10/17 09/10/17 21:59 06:59 14:59 Intake Total 3 Balance 3 Weight Intake: IV Intake, IV Amount 3 Right Forearm 3 - Medications Active Medications: Active Medications Generic Name Dose Route Start Last Admin Trade Name Freq PRN Reason Stop Dose Admin Amlodipine Besylate 10 mg 09/06/17 10:00 09/09/17 15:54 Norvasc PO 10 mg DAILY JUAN RAMON Administration Aspirin 325 mg 09/09/17 17:00 09/09/17 17:04 Aspirin PO 325 mg DAILY [facility] Administration Calcium Acetate 1,334 mg 09/06/17 10:00 09/09/17 18:46 Phoslo PO 1,334 mg TID JUAN RAMON Administration Clonidine HCl 1 patch 09/08/17 21:00 09/08/17 21:10 Catapres-Tts3 0.3 Mg/24 Hr TD 1 patch Q7D@1000 JUAN RAMON Administration Clopidogrel Bisulfate 75 mg 09/10/17 10:15 Plavix PO DAILY [facility] Enoxaparin Sodium 30 mg 09/06/17 10:00 09/09/17 11:00 Lovenox SC 30 mg DAILY [facility] Administration Famotidine 20 mg 09/08/17 14:45 09/09/17 15:18 Pepcid IVP 20 mg DAILY [facility] Administration Hydralazine HCl 10 mg 09/06/17 08:58 09/09/17 03:29 Apresoline IVP 10 mg Q6H PRN Administration HTN Hydralazine HCl 50 mg 09/06/17 10:07 09/09/17 21:51 Apresoline PO Not Given QID [facility] Insulin Human Regular 0 unit 09/09/17 12:00 09/10/17 06:26 Novolin R SC 2 unit Q6H [facility] Administration Protocol Losartan Potassium 100 mg 09/07/17 10:00 09/09/17 15:11 Cozaar PO 100 mg DAILY [facility] Administration Rosuvastatin Calcium 20 mg 09/06/17 08:27 09/09/17 21:52 Crestor PO 20 mg HS [facility] Administration - Patient Studies Lab Studies: Microbiology Studies 09/05/17 20:12 Blood Culture - Preliminary Blood NO GROWTH AFTER 4 DAYS 09/05/17 20:30 Blood Culture - Preliminary Blood NO GROWTH AFTER 4 DAYS 09/08/17 13:00 MRSA Culture (Admit) - Final Naris MRSA DETECTED 09/06/17 17:00 Blood Culture - Preliminary Blood NO GROWTH AFTER 3 DAYS Lab Studies 09/10/17 09/10/17 09/10/17 Range/Units 06:09 05:51 05:51 WBC 8.7 (4.8-10.8) K/uL RBC 5.13 (3.80-5.20) Mil/uL Hgb 11.4 (11.0-16.0) g/dL Hct 36.2 (34.0-47.0) % MCV 70.7 L (81.0-99.0) fL MCH 22.2 L (27.0-31.0) pg MCHC 31.4 L (33.0-37.0) g/dL RDW 21.3 H (11.5-14.5) % Plt Count 289 (130-400) K/uL MPV 8.6 (7.2-11.7) fL Neut % (Auto) 58.8 (50.0-75.0) % Lymph % (Auto) 24.5 (20.0-40.0) % Hand % (Auto) 11.8 H (0.0-10.0) % Eos % (Auto) 3.5 (0.0-4.0) % Baso % (Auto) 1.4 (0.0-2.0) % Neut # (Auto) 5.1 (1.8-7.0) K/uL Lymph # (Auto) 2.1 (1.0-4.3) K/uL Hand # (Auto) 1.0 H (0.0-0.8) K/uL Eos # (Auto) 0.3 (0.0-0.7) K/uL Baso # (Auto) 0.1 (0.0-0.2) K/uL Sodium 143 (132-148) mmol/L Potassium 4.0 (3.6-5.2) mmol/L Chloride 97 L (98-107) mmol/L Carbon Dioxide 30 (22-30) mmol/L Anion Gap 20 (10-20) BUN 25 H (7-17) mg/dL Creatinine 5.4 H (0.7-1.2) mg/dL Est GFR ( Amer) 9 Est GFR (Non-Af Amer) 8 POC Glucose (mg/dL) 151 H (65-110) mg/dL Random Glucose 153 H (65-105) mg/dL Calcium 9.5 (8.6-10.4) mg/dl Phosphorus 3.8 (2.5-4.5) mg/dL Magnesium 2.4 H (1.6-2.3) mg/dL Total Bilirubin 1.1 (0.2-1.3) mg/dL AST 24 (14-36) U/L ALT 13 (9-52) U/L Alkaline Phosphatase 79 (38-126) U/L Total Protein 7.7 (6.3-8.3) g/dL Albumin 4.1 (3.5-5.0) g/dL Globulin 3.6 (2.2-3.9) gm/dL Albumin/Globulin Ratio 1.1 (1.0-2.1) 09/09/17 09/09/17 09/09/17 Range/Units 23:31 17:41 11:33 WBC (4.8-10.8) K/uL RBC (3.80-5.20) Mil/uL Hgb (11.0-16.0) g/dL Hct (34.0-47.0) % MCV (81.0-99.0) fL MCH (27.0-31.0) pg MCHC (33.0-37.0) g/dL RDW (11.5-14.5) % Plt Count (130-400) K/uL MPV (7.2-11.7) fL Neut % (Auto) (50.0-75.0) % Lymph % (Auto) (20.0-40.0) % Hand % (Auto) (0.0-10.0) % Eos % (Auto) (0.0-4.0) % Baso % (Auto) (0.0-2.0) % Neut # (Auto) (1.8-7.0) K/uL Lymph # (Auto) (1.0-4.3) K/uL Hand # (Auto) (0.0-0.8) K/uL Eos # (Auto) (0.0-0.7) K/uL Baso # (Auto) (0.0-0.2) K/uL Sodium (132-148) mmol/L Potassium (3.6-5.2) mmol/L Chloride (98-107) mmol/L Carbon Dioxide (22-30) mmol/L Anion Gap (10-20) BUN (7-17) mg/dL Creatinine (0.7-1.2) mg/dL Est GFR ( Amer) Est GFR (Non-Af Amer) POC Glucose (mg/dL) 117 H 128 H 81 (65-110) mg/dL Random Glucose (65-105) mg/dL Calcium (8.6-10.4) mg/dl Phosphorus (2.5-4.5) mg/dL Magnesium (1.6-2.3) mg/dL Total Bilirubin (0.2-1.3) mg/dL AST (14-36) U/L ALT (9-52) U/L Alkaline Phosphatase (38-126) U/L Total Protein (6.3-8.3) g/dL Albumin (3.5-5.0) g/dL Globulin (2.2-3.9) gm/dL Albumin/Globulin Ratio (1.0-2.1) Laboratory Results - last 24 hr 09/09/17 09/09/17 09/09/17 11:33 17:41 23:31 WBC RBC Hgb Hct MCV MCH MCHC RDW Plt Count MPV Neut % (Auto) Lymph % (Auto) Hand % (Auto) Eos % (Auto) Baso % (Auto) Neut # (Auto) Lymph # (Auto) Hand # (Auto) Eos # (Auto) Baso # (Auto) Sodium Potassium Chloride Carbon Dioxide Anion Gap BUN Creatinine Est GFR ( Amer) Est GFR (Non-Af Amer) POC Glucose (mg/dL) 81 128 H 117 H Random Glucose Calcium Phosphorus Magnesium Total Bilirubin AST ALT Alkaline Phosphatase Total Protein Albumin Globulin Albumin/Globulin Ratio 09/10/17 09/10/17 09/10/17 05:51 05:51 06:09 WBC 8.7 RBC 5.13 Hgb 11.4 Hct 36.2 MCV 70.7 L MCH 22.2 L MCHC 31.4 L RDW 21.3 H Plt Count 289 MPV 8.6 Neut % (Auto) 58.8 Lymph % (Auto) 24.5 Hand % (Auto) 11.8 H Eos % (Auto) 3.5 Baso % (Auto) 1.4 Neut # (Auto) 5.1 Lymph # (Auto) 2.1 Hand # (Auto) 1.0 H Eos # (Auto) 0.3 Baso # (Auto) 0.1 Sodium 143 Potassium 4.0 Chloride 97 L Carbon Dioxide 30 Anion Gap 20 BUN 25 H Creatinine 5.4 H Est GFR ( Amer) 9 Est GFR (Non-Af Amer) 8 POC Glucose (mg/dL) 151 H Random Glucose 153 H Calcium 9.5 Phosphorus 3.8 Magnesium 2.4 H Total Bilirubin 1.1 AST 24 ALT 13 Alkaline Phosphatase 79 Total Protein 7.7 Albumin 4.1 Globulin 3.6 Albumin/Globulin Ratio 1.1 Fingerstick Blood Sugar Results: 151 Critical Care Progress Note - Nutrition Nutrition: Nutrition Category Date Time Status Dysphagia/Modified Consistency Diet [DIET] Diets 09/09/17 Lunch Active
--- NOTE | 2017-09-10 10:37 | CP.PCM.PN ---
<Sakshi Fitzpatrick - Last Filed: 09/10/17 10:38> Subjective - Date & Time of Evaluation Date of Evaluation: 09/10/17 Time of Evaluation: 10:33 - Subjective Subjective: Ms. Lopez was seen and examined at the bedside. She is awake, but unable to answer to any questions, but moves all extremities and strong. She does not have any eye contact. This was a decline from yesterday, she was coherent and was participating in a pleasant conversation. Code stroke was called, CT scan of the head was done, pending results CTA was not done due to patient moving. NIHSS- 10. Objective - Vital Signs/Intake and Output Vital Signs (last 24 hours): Temp Pulse Resp BP Pulse Ox 98.1 F 97 H 21 142/56 L 99 09/10/17 05:00 09/10/17 07:00 09/10/17 07:00 09/10/17 06:26 09/10/17 05:00 Intake and Output: 09/10/17 09/10/17 06:59 18:59 Intake Total 3 Balance 3 - Medications Medications: Current Medications Amlodipine Besylate (Norvasc) 10 mg PO DAILY [facility] Last Admin: 09/09/17 15:54 Dose: 10 mg Aspirin (Aspirin) 325 mg PO DAILY [facility] Last Admin: 09/09/17 17:04 Dose: 325 mg Calcium Acetate (Phoslo) 1,334 mg PO TID [facility] Last Admin: 09/09/17 18:46 Dose: 1,334 mg Clonidine HCl (Catapres-Tts3 0.3 Mg/24 Hr) 1 patch TD Q7D@1000 [facility] Last Admin: 09/08/17 21:10 Dose: 1 patch Clopidogrel Bisulfate (Plavix) 75 mg PO DAILY [facility] Enoxaparin Sodium (Lovenox) 30 mg SC DAILY [facility] Last Admin: 09/09/17 11:00 Dose: 30 mg Famotidine (Pepcid) 20 mg IVP DAILY [facility] Last Admin: 09/09/17 15:18 Dose: 20 mg Hydralazine HCl (Apresoline) 10 mg IVP Q6H PRN PRN Reason: HTN Last Admin: 09/09/17 03:29 Dose: 10 mg Hydralazine HCl (Apresoline) 50 mg PO QID [facility] Last Admin: 09/09/17 21:51 Dose: Not Given Insulin Human Regular (Novolin R) 0 unit SC Q6H [facility] PRN Reason: Protocol Last Admin: 09/10/17 06:26 Dose: 2 unit Losartan Potassium (Cozaar) 100 mg PO DAILY [facility] Last Admin: 09/09/17 15:11 Dose: 100 mg Rosuvastatin Calcium (Crestor) 20 mg PO HS [facility] Last Admin: 09/09/17 21:52 Dose: 20 mg - Labs Labs: 09/10/17 05:51 09/10/17 05:51 PT 12.8 SECONDS (9.7-12.2) H 09/05/17 20:16 INR 1.1 09/05/17 20:16 APTT 32 SECONDS (21-34) 09/05/17 20:16 - Constitutional Appears: No Acute Distress - Head Exam Head Exam: NORMAL INSPECTION - Neurological Exam Neurological Exam: Awake Neuro motor strength exam: Left Upper Extremity: 5, Right Upper Extremity: 5, Left Lower Extremity: 5, Right Lower Extremity: 5 Additional comments: She moves all extremities spontaneously but unable to follow simple commands. Assessment and Plan (1) Encephalopathy acute Assessment & Plan: Case discussed with Dr. Pierce, recommend MRI of the brain without contrast to r/o stroke. Recommend seroquel 25 mg vis NGT one hour prior to MRI. Status: Acute <Mina Pierce - Last Filed: 09/10/17 11:10> Subjective - Subjective Subjective: Spoke to , through code cart, patient seems to be aphasic, which is new from yesterday. She was able to speak to me in full sentences although she was perseverating,. CT scan shows tremendous amount of atrophy. Plan as above. Objective - Vital Signs/Intake and Output Vital Signs (last 24 hours): Temp Pulse Resp BP Pulse Ox 98.1 F 94 H 20 137/60 100 09/10/17 05:00 09/10/17 10:45 09/10/17 10:45 09/10/17 09:59 09/10/17 10:45 Intake and Output: 09/10/17 09/10/17 06:59 18:59 Intake Total 3 Balance 3 - Medications Medications: Current Medications Amlodipine Besylate (Norvasc) 10 mg PO DAILY [facility] Last Admin: 09/09/17 15:54 Dose: 10 mg Aspirin (Aspirin) 325 mg PO DAILY [facility] Last Admin: 09/09/17 17:04 Dose: 325 mg Calcium Acetate (Phoslo) 1,334 mg PO TID [facility] Last Admin: 09/09/17 18:46 Dose: 1,334 mg Clonidine HCl (Catapres-Tts3 0.3 Mg/24 Hr) 1 patch TD Q7D@1000 [facility] Last Admin: 09/08/17 21:10 Dose: 1 patch Clopidogrel Bisulfate (Plavix) 75 mg PO DAILY [facility] Famotidine (Pepcid) 20 mg IVP DAILY [facility] Last Admin: 09/09/17 15:18 Dose: 20 mg Hydralazine HCl (Apresoline) 10 mg IVP Q6H PRN PRN Reason: HTN Last Admin: 09/09/17 03:29 Dose: 10 mg Hydralazine HCl (Apresoline) 50 mg PO QID [facility] Last Admin: 09/09/17 21:51 Dose: Not Given Insulin Human Regular (Novolin R) 0 unit SC Q6H [facility] PRN Reason: Protocol Last Admin: 09/10/17 06:26 Dose: 2 unit Losartan Potassium (Cozaar) 100 mg PO DAILY [facility] Last Admin: 09/09/17 15:11 Dose: 100 mg Rosuvastatin Calcium (Crestor) 20 mg PO HS [facility] Last Admin: 09/09/17 21:52 Dose: 20 mg - Labs Labs: 09/10/17 05:51 09/10/17 05:51 PT 12.8 SECONDS (9.7-12.2) H 09/05/17 20:16 INR 1.1 09/05/17 20:16 APTT 32 SECONDS (21-34) 09/05/17 20:16
--- NOTE | 2017-09-10 10:51 | CT ---
PROCEDURE: CT HEAD WITHOUT CONTRAST. HISTORY: non verbal, not following commands COMPARISON: Noncontrast head CT performed 09/08/17 TECHNIQUE: Axial computed tomography images were obtained through the head/brain without intravenous contrast. Radiation dose: Total exam DLP = 1033.75 mGy-cm. This CT exam was performed using one or more of the following dose reduction techniques: Automated exposure control, adjustment of the mA and/or kV according to patient size, and/or use of iterative reconstruction technique. FINDINGS: Artifact limits evaluation of the skullbase. HEMORRHAGE: No intracranial hemorrhage. BRAIN: Diffuse atrophy with prominence of the ventricles and sulci noted. No mass effect or edema. Intracranial atherosclerosis. Scattered periventricular and subcortical white matter hypodensities, which are nonspecific, but often seen with chronic microvascular ischemic disease. Small bilateral basal ganglia and thalamic lacunar infarcts. Please note that MRI with diffusion imaging is more sensitive in the detection of acute ischemic event. VENTRICLES: No hydrocephalus. CALVARIUM: Unremarkable. PARANASAL SINUSES: Unremarkable as visualized. No significant inflammatory changes. MASTOID AIR CELLS: Unremarkable as visualized. No inflammatory changes. OTHER FINDINGS: None. IMPRESSION: Streak artifact obscures evaluation of the skullbase. Small bilateral basal ganglia and thalamic lacunar infarcts. Moderate nonspecific white matter changes. Generalized atrophy. Please note that MRI with diffusion imaging is more sensitive in the detection of acute ischemic event. Findings discussed with the patient's RN Pat on 09/10/17 at 10:39 a.m.
[2017-09-10] MEDS ORDERED: Sodium Chloride 0.9% 1,000 ML IV SCH (16:45)
--- NOTE | 2017-09-10 17:28 | CP.PCM.PN ---
Subjective - Date & Time of Evaluation Date of Evaluation: 09/10/17 Time of Evaluation: 17:10 - Subjective Subjective: BRIEF UPDATE, please see also the note earlier in the day Patient returned from MRI. Results are pending however I was told they were negative for an ischemic event. Family I spoke to earlier are at bedside and I updated family. Her son Amos and relative Donna Lopez at bedside. Patient was still non verbal and non responsive. The blood pressure systolic is in the 90s. All of the medications for lowering BP were stopped from this morning. Per discussion with ICU, at this moment the goal is to try to raise the BP and continue to follow her mental status. Also recheck blood cultures and lab work in case she could be sepsis causing the hypotension. Dill, IVF, and probably presser medications to raise BP Tadeo Singh Objective - Vital Signs/Intake and Output Vital Signs (last 24 hours): Temp Pulse Resp BP Pulse Ox 98.7 F 102 H 17 112/22 L 100 09/10/17 12:00 09/10/17 15:45 09/10/17 15:45 09/10/17 15:25 09/10/17 15:45 Intake and Output: 09/10/17 09/10/17 06:59 18:59 Intake Total 9 Balance 9 - Medications Medications: Current Medications Aspirin (Aspirin) 325 mg PO DAILY [facility] Last Admin: 09/10/17 11:08 Dose: 325 mg Calcium Acetate (Phoslo) 1,334 mg PO TID [facility] Last Admin: 09/10/17 14:00 Dose: Not Given Clopidogrel Bisulfate (Plavix) 75 mg PO DAILY [facility] Last Admin: 09/10/17 11:10 Dose: 75 mg Famotidine (Pepcid) 20 mg IVP DAILY [facility] Last Admin: 09/10/17 11:09 Dose: 20 mg Hydralazine HCl (Apresoline) 25 mg PO TID [facility] Sodium Chloride (Sodium Chloride 0.9%) 1,000 mls @ 50 mls/hr IV .Q20H [facility] Last Admin: 09/10/17 17:02 Dose: 50 mls/hr Insulin Human Regular (Novolin R) 0 unit SC Q6H [facility] PRN Reason: Protocol Last Admin: 09/10/17 12:00 Dose: Not Given Losartan Potassium (Cozaar) 100 mg PO DAILY [facility] Last Admin: 09/10/17 11:09 Dose: Not Given Rosuvastatin Calcium (Crestor) 20 mg PO HS [facility] Last Admin: 09/09/17 21:52 Dose: 20 mg - Labs Labs: 09/10/17 05:51 09/10/17 05:51 PT 12.8 SECONDS (9.7-12.2) H 09/05/17 20:16 INR 1.1 09/05/17 20:16 APTT 32 SECONDS (21-34) 09/05/17 20:16
[2017-09-10 17:44] LABS: ABG ALLEN TEST POS; ARTERIAL BLOOD GAS HCO3 25.8 mmol/L (21-28); ARTERIAL BLOOD GAS O2 SAT 98.8 % (95-98); ARTERIAL BLOOD GAS PCO2 38 mm/Hg (35-45); ARTERIAL BLOOD GAS PH 7.43 (7.35-7.45); ARTERIAL BLOOD GAS PO2 126 mm/Hg (80-100); ARTERIAL BLOOD GAS TCO2 26.4 mmol/L (22-28)
[2017-09-10 17:55] LABS: BASO # 0.1 K/uL (0.0-0.2); BASO % 1.2 % (0.0-2.0); EOS # 0.2 K/uL (0.0-0.7); EOS % 2.4 % (0.0-4.0); HEMOGLOBIN 11.9 g/dL (11.0-16.0); LYMPH # 1.9 K/uL (1.0-4.3); LYMPH % 25.4 % (20.0-40.0); MEAN CELL VOLUME 70.1 fL (81.0-99.0); MEAN CORPUSCULAR HGB CONC 31.4 g/dL (33.0-37.0); MEAN PLATELET VOLUME 8.6 fL (7.2-11.7); MONO # 1.1 K/uL (0.0-0.8); MONO % 14.4 % (0.0-10.0); NEUT # 4.3 K/uL (1.8-7.0); NEUT % 56.6 % (50.0-75.0); NRBC % 0.2 % (0.0-2.0); RBC 5.42 Mil/uL (3.80-5.20); RED CELL DISTRIBUTION WIDTH 21.5 % (11.5-14.5); WHITE BLOOD COUNT 7.6 K/uL (4.8-10.8)
--- NOTE | 2017-09-10 17:57 | RAD ---
HISTORY: hypotension COMPARISON: Chest x-ray performed 09/05/17 TECHNIQUE: Chest, one view. FINDINGS: Right-sided dialysis catheter with distal tips at the cavoatrial junction/ right atrium. Nasogastric tube extends expected location of the stomach, distal tip excluded from view. LUNGS: Right hilar prominence. No focal consolidation. Please note that chest x-ray has limited sensitivity for the detection of pulmonary masses. PLEURA: No significant pleural effusion identified. No definite pneumothorax . CARDIOVASCULAR: Cardiomegaly. Atherosclerotic calcifications of an ectatic aorta. OSSEOUS STRUCTURES: Degenerative changes. VISUALIZED UPPER ABDOMEN: Unremarkable. OTHER FINDINGS: None. IMPRESSION: Right-sided dialysis catheter is above. Nasogastric tube. Cardiomegaly. Dense atherosclerotic calcifications of an ectatic aorta. Right hilar prominence.
[2017-09-10 18:13] LABS: ALB/GLOB RATIO 1.1 (1.0-2.1); ALBUMIN 3.9 g/dL (3.5-5.0); CALCIUM 8.8 mg/dl (8.6-10.4)
[2017-09-10 18:25] LABS: CK-MB 2.37 ng/mL (0.0-3.38); TROPONIN I 2.79 ng/mL (0.00-0.120)
[2017-09-11] MEDS: (Novolin R) Insulin Human Regular 100 units/ml vial SC SCH ×4 (00:29→17:53)
[2017-09-11 06:33] LABS: BASO # 0.1 K/uL (0.0-0.2); BASO % 0.5 % (0.0-2.0); EOS # 0.1 K/uL (0.0-0.7); HEMOGLOBIN 12.2 g/dL (11.0-16.0); LYMPH # 1.9 K/uL (1.0-4.3); LYMPH % 19.2 % (20.0-40.0); MEAN CELL VOLUME 70.8 fL (81.0-99.0); MEAN CORPUSCULAR HEMOGLOBIN 22.3 pg (27.0-31.0); MEAN CORPUSCULAR HGB CONC 31.5 g/dL (33.0-37.0); MEAN PLATELET VOLUME 8.8 fL (7.2-11.7); MONO # 1.5 K/uL (0.0-0.8); MONO % 15.4 % (0.0-10.0); NEUT # 6.4 K/uL (1.8-7.0); NEUT % 63.9 % (50.0-75.0); RBC 5.45 Mil/uL (3.80-5.20); RED CELL DISTRIBUTION WIDTH 21.6 % (11.5-14.5)
[2017-09-11 06:57] LABS: ALB/GLOB RATIO 1.2 (1.0-2.1); ALBUMIN 4.2 g/dL (3.5-5.0); CALCIUM 9.1 mg/dl (8.6-10.4)
--- NOTE | 2017-09-11 06:57 | CP.PCM.PN ---
Subjective - Date & Time of Evaluation Date of Evaluation: 09/11/17 Time of Evaluation: 06:53 - Subjective Subjective: Ms. Lopez was seen and examined at the bedside in ICU. She is awake, confused, able to state her name, but unable to answer any other questions or follow simple commands. She moves all her extremities spontaneously with episode of restlessness. She resist any assessment. She has bilateral hand mitten for patient safety. MRI showed no ischemic events. There was no untoward events overnight. Objective - Vital Signs/Intake and Output Vital Signs (last 24 hours): Temp Pulse Resp BP Pulse Ox 98.7 F 100 H 19 159/64 H 100 09/11/17 05:00 09/11/17 06:34 09/11/17 06:34 09/11/17 06:35 09/11/17 06:34 Intake and Output: 09/10/17 09/11/17 18:59 06:59 Intake Total 309 120 Balance 309 120 - Medications Medications: Current Medications Aspirin (Aspirin) 325 mg PO DAILY [facility] Last Admin: 09/10/17 11:08 Dose: 325 mg Calcium Acetate (Phoslo) 1,334 mg PO TID [facility] Last Admin: 09/10/17 19:00 Dose: 1,334 mg Clopidogrel Bisulfate (Plavix) 75 mg PO DAILY [facility] Last Admin: 09/10/17 11:10 Dose: 75 mg Famotidine (Pepcid) 20 mg IVP DAILY [facility] Last Admin: 09/10/17 11:09 Dose: 20 mg Insulin Human Regular (Novolin R) 0 unit SC Q6H [facility] PRN Reason: Protocol Last Admin: 09/11/17 06:07 Dose: Not Given Rosuvastatin Calcium (Crestor) 20 mg PO [facility] Last Admin: 09/10/17 21:52 Dose: 20 mg - Labs Labs: 09/11/17 06:27 09/10/17 17:51 PT 12.8 SECONDS (9.7-12.2) H 09/05/17 20:16 INR 1.1 09/05/17 20:16 APTT 32 SECONDS (21-34) 09/05/17 20:16 - Constitutional Appears: No Acute Distress - Head Exam Head Exam: NORMAL INSPECTION - Neurological Exam Neurological Exam: Awake Neuro motor strength exam: Left Upper Extremity: 5, Right Upper Extremity: 5, Left Lower Extremity: 5, Right Lower Extremity: 5 Additional comments: Awake but with episode of confusion and unable to follow simple commands. She is able to move all extremities spontaneously. Assessment and Plan (1) Encephalopathy acute Assessment & Plan: Case discussed with Dr. Medel, continue all current medical regimen. Recommend blood pressure control ( not to make it below systolic of 130) and treat any underlying electrolyte abnormalities Status: Acute
--- NOTE | 2017-09-11 09:22 | CP.PCM.PN ---
Subjective - Date & Time of Evaluation Date of Evaluation: 09/11/17 Time of Evaluation: 09:21 - Subjective Subjective: Seen and examined.Patient is confused,awake and oriented,no distress noted Objective - Vital Signs/Intake and Output Vital Signs (last 24 hours): Temp Pulse Resp BP Pulse Ox 98.7 F 100 H 21 159/64 H 100 09/11/17 05:00 09/11/17 08:00 09/11/17 08:00 09/11/17 06:35 09/11/17 08:00 Intake and Output: 09/11/17 09/11/17 06:59 18:59 Intake Total 120 Balance 120 - Medications Medications: Current Medications Aspirin (Aspirin) 325 mg PO DAILY [facility] Last Admin: 09/10/17 11:08 Dose: 325 mg Calcium Acetate (Phoslo) 1,334 mg PO TID [facility] Last Admin: 09/10/17 19:00 Dose: 1,334 mg Clopidogrel Bisulfate (Plavix) 75 mg PO DAILY [facility] Last Admin: 09/10/17 11:10 Dose: 75 mg Famotidine (Pepcid) 20 mg IVP DAILY [facility] Last Admin: 09/10/17 11:09 Dose: 20 mg Insulin Human Regular (Novolin R) 0 unit SC Q6H [facility] PRN Reason: Protocol Last Admin: 09/11/17 06:07 Dose: Not Given Rosuvastatin Calcium (Crestor) 20 mg PO [facility] Last Admin: 09/10/17 21:52 Dose: 20 mg - Labs Labs: 09/11/17 06:27 09/11/17 06:27 PT 12.8 SECONDS (9.7-12.2) H 09/05/17 20:16 INR 1.1 09/05/17 20:16 APTT 32 SECONDS (21-34) 09/05/17 20:16 - Constitutional Appears: No Acute Distress - Head Exam Head Exam: NORMAL INSPECTION - Neck Exam Neck Exam: Full ROM - Respiratory Exam Respiratory Exam: Clear to Ausculation Bilateral, NORMAL BREATHING PATTERN - Cardiovascular Exam Cardiovascular Exam: REGULAR RHYTHM - GI/Abdominal Exam GI & Abdominal Exam: Soft, Normal Bowel Sounds - Extremities Exam Extremities Exam: Full ROM - Back Exam Back Exam: NORMAL INSPECTION - Neurological Exam Neurological Exam: Awake. absent: Oriented x3 (consfused) - Psychiatric Exam Psychiatric exam: Normal Mood - Skin Skin Exam: Dry Assessment and Plan - Assessment and Plan (Free Text) Assessment: THis is a 72 year old female with a PMHx of DM2 and ESRD on HD , and hypertension who is being admitted to the ICU for uncontrolled hypertension with a systolic blood pressure above 200 (hypertensive emergency). Plan: 1.Altered mental status Patient is awake and oriented,moving her extremities, doesn't follow commands, Patient does have baseline dementia s/p MRI brain at [place] yesterday reported normal. CT head w/o contrast: Atrophy and small vessel disease, no bleed MRI Brain w/o contrast: Suboptimal diagnostic quality due to patient motion. No acute intracranial abnormality. Moderate chronic microangiopathic changes and moderate age-related global parenchyma volume loss. MRA Head and Neck: Normal MR angiography of the brain; Normal MR Angiography of the neck. EEG done on Monday, official read pending 2. Cardiology: Hypertensive Emergency, Elevated troponins Continue Aspirin and Plavix daily blood pressure better off antihypertensives elevated troponin without chest pain Cardiology on consult, help appreciated 3. Nephrology: ESRD on HD Nephrology consulted, help appreciated Continue Hemodialysis TTS Cont home med Calcium Acetate 1334mg PO TID 4.Endocrinology:Type 2 Diabetes Mellitus Accuchecks, ISS - medium dose Diabetic Diet Crestor 20mg PO QHS 5.Infectious Disease: Contact isolation for MRSA nares.blood and urine culture negative no fever 6.GI/DVT PPX SCDs, Heparin 5000 units Q12H SC Pepcid 20mg IVP daily
--- NOTE | 2017-09-11 11:26 | CP.PCM.PN ---
Subjective - Date & Time of Evaluation Date of Evaluation: 09/11/17 Time of Evaluation: 11:24 - Subjective Subjective: more alert off tridil drip trying to eat stable dialysis 09/09 MRA/MRI negative Objective - Vital Signs/Intake and Output Vital Signs (last 24 hours): Temp Pulse Resp BP Pulse Ox 98.7 F 103 H 18 156/66 H 100 09/11/17 09:00 09/11/17 09:23 09/11/17 09:23 09/11/17 09:23 09/11/17 09:23 Intake and Output: 09/11/17 09/11/17 06:59 18:59 Intake Total 120 50 Balance 120 50 - Medications Medications: Current Medications Aspirin (Aspirin) 325 mg PO DAILY [facility] Last Admin: 09/11/17 10:16 Dose: 325 mg Calcium Acetate (Phoslo) 1,334 mg PO TID [facility] Last Admin: 09/11/17 10:16 Dose: 1,334 mg Clopidogrel Bisulfate (Plavix) 75 mg PO DAILY [facility] Last Admin: 09/11/17 10:16 Dose: 75 mg Famotidine (Pepcid) 20 mg IVP DAILY [facility] Last Admin: 09/11/17 10:00 Dose: 20 mg Heparin Sodium (Porcine) (Heparin) 5,000 units SC Q12 [facility] Insulin Human Regular (Novolin R) 0 unit SC Q6H [facility] PRN Reason: Protocol Last Admin: 09/11/17 06:07 Dose: Not Given Rosuvastatin Calcium (Crestor) 20 mg PO HS [facility] Last Admin: 09/10/17 21:52 Dose: 20 mg - Labs Labs: 09/11/17 06:27 09/11/17 06:27 PT 12.8 SECONDS (9.7-12.2) H 09/05/17 20:16 INR 1.1 09/05/17 20:16 APTT 32 SECONDS (21-34) 09/05/17 20:16 - Constitutional Appears: In Acute Distress, Confused, Chronically Ill - Head Exam Head Exam: ATRAUMATIC, NORMAL INSPECTION - Eye Exam Eye Exam: EOMI, Normal appearance - Neck Exam Neck Exam: Normal Inspection. absent: Tenderness - Respiratory Exam Respiratory Exam: Clear to Ausculation Bilateral, NORMAL BREATHING PATTERN - Cardiovascular Exam Cardiovascular Exam: Tachycardia, +S1 - GI/Abdominal Exam GI & Abdominal Exam: Soft. absent: Tenderness - Extremities Exam Extremities Exam: Normal Inspection. absent: Tenderness - Neurological Exam Neurological Exam: Awake, CN II-XII Intact - Skin Skin Exam: Dry, Warm Assessment and Plan (1) Uncontrolled hypertension Status: Acute (2) Dementia Status: Acute (3) Altered mental state Status: Acute (4) End-stage renal disease on hemodialysis Status: Chronic (5) Type 2 diabetes mellitus Status: Chronic - Assessment and Plan (Free Text) Plan: Add antihypertensives dialysis TTS
--- NOTE | 2017-09-11 12:39 | CARD ---
APPROVED REPORT EKG Measurement Heart [id number] <Conclusion> Normal sinus rhythm Biatrial enlargement Left axis deviation Left ventricular hypertrophy with repolarization abnormality Abnormal ECG
--- NOTE | 2017-09-11 13:34 | CP.CCUPN ---
<Yenny Sheffield - Last Filed: 09/11/17 14:56> CCU Subjective - Physician Review Subjective (Free Text): 09/11/17 13:32 Patient seen and examined at bedside. Per nursing no acute events overnight. Code stroke was called yesterday for AMS. Patient is awake and alert, moves all extremities. Not following commands however she did say "dont touch my leg". ROS not obtained. CCU Objective - Vital Signs / Intake & Output Vital Signs (Last 4 hours): Vital Signs Pulse Resp BP Pulse Ox 09/11/17 12:00 99 H 23 100 09/11/17 11:22 101 H 19 137/45 L 99 09/11/17 11:00 104 H 18 100 09/11/17 10:22 103 H 17 151/63 H 99 09/11/17 10:00 107 H 12 97 Intake and Output (Last 8hrs): Intake & Output 09/10/17 09/11/17 09/11/17 22:59 06:59 14:59 Intake Total 360 60 130 Balance 360 60 130 Weight 56.699 kg Intake: Intake, IV Amount 300 Right Forearm 300 Oral 80 Other 60 60 50 Other: # Bowel Movements 0 1 1 - Physical Exam Head: Positive for: Atraumatic, Normocephalic Pupils: Positive for: PERRL Extroacular Muscles: Positive for: EOMI Conjunctiva: Positive for: Normal Respiratory/Chest: Positive for: Clear to Auscultation. Negative for: Respiratory Distress, Accessory Muscle Use Cardiovascular: Positive for: Regular Rate and Rhythm, Normal S1, S2 Abdomen: Negative for: Tenderness, Distention Skin: Positive for: Warm, Dry Psychiatric: Positive for: Alert. Negative for: Oriented x 3 - Medications Active Medications: Active Medications Generic Name Dose Route Start Last Admin Trade Name Freq PRN Reason Stop Dose Admin Aspirin 325 mg 09/09/17 17:00 09/11/17 10:16 Aspirin PO 325 mg DAILY JUAN RAMON Administration Calcium Acetate 1,334 mg 09/06/17 10:00 09/11/17 10:16 Phoslo PO 1,334 mg TID JUAN RAMON Administration Clopidogrel Bisulfate 75 mg 09/10/17 10:15 09/11/17 10:16 Plavix PO 75 mg DAILY JUAN RAMON Administration Famotidine 20 mg 09/08/17 14:45 09/11/17 10:00 Pepcid IVP 20 mg DAILY JUAN RAMON Administration Heparin Sodium (Porcine) 5,000 units 09/11/17 10:30 09/11/17 11:00 Heparin SC 5,000 units Q12 JUAN RAMON Administration Insulin Human Regular 0 unit 09/09/17 12:00 09/11/17 12:00 Novolin R SC Not Given Q6H [facility] Protocol Labetalol HCl 100 mg 09/11/17 18:00 Trandate PO BID JUAN RAMON Rosuvastatin Calcium 20 mg 09/06/17 08:27 09/10/17 21:52 Crestor PO 20 mg HS JUAN RAMON Administration - Patient Studies Lab Studies: Microbiology Studies 09/05/17 20:12 Blood Culture - Final Blood NO GROWTH AFTER 5 DAYS Gram Stain - Final TEST NOT PERFORMED 09/05/17 20:30 Blood Culture - Final Blood NO GROWTH AFTER 5 DAYS Gram Stain - Final TEST NOT PERFORMED 09/06/17 17:00 Blood Culture - Preliminary Blood NO GROWTH AFTER 4 DAYS Lab Studies 09/11/17 09/11/17 09/11/17 Range/Units 11:46 11:22 11:22 WBC (4.8-10.8) K/uL RBC (3.80-5.20) Mil/uL Hgb (11.0-16.0) g/dL Hct (34.0-47.0) % MCV (81.0-99.0) fL MCH (27.0-31.0) pg MCHC (33.0-37.0) g/dL RDW (11.5-14.5) % Plt Count (130-400) K/uL MPV (7.2-11.7) fL Neut % (Auto) (50.0-75.0) % Lymph % (Auto) (20.0-40.0) % Ceiba % (Auto) (0.0-10.0) % Eos % (Auto) (0.0-4.0) % Baso % (Auto) (0.0-2.0) % Neut # (Auto) (1.8-7.0) K/uL Lymph # (Auto) (1.0-4.3) K/uL Ceiba # (Auto) (0.0-0.8) K/uL Eos # (Auto) (0.0-0.7) K/uL Baso # (Auto) (0.0-0.2) K/uL Puncture Site pCO2 (35-45) mm/Hg pO2 (80-100) mm/Hg HCO3 (21-28) mmol/L ABG pH (7.35-7.45) ABG Total CO2 (22-28) mmol/L ABG O2 Saturation (95-98) % ABG Base Excess (-2.0-3.0) mmol/L Alessandro Test ABG Potassium (3.6-5.2) mmol/L A-a O2 Difference mm/Hg Respiratory Index Sodium (132-148) mmol/l Chloride (98-107) mmol/L Glucose (65-105) mg/dl Lactate (0.7-2.1) mmol/L Liter Flow FiO2 % Potassium (3.6-5.2) mmol/L Carbon Dioxide (22-30) mmol/L Anion Gap (10-20) BUN (7-17) mg/dL Creatinine (0.7-1.2) mg/dL Est GFR ( Amer) Est GFR (Non-Af Amer) POC Glucose (mg/dL) 141 H (65-110) mg/dL Random Glucose (65-105) mg/dL Calcium (8.6-10.4) mg/dl Phosphorus (2.5-4.5) mg/dL Magnesium (1.6-2.3) mg/dL Total Bilirubin (0.2-1.3) mg/dL AST (14-36) U/L ALT (9-52) U/L Alkaline Phosphatase (38-126) U/L Total Creatine Kinase (30-135) U/L CK-MB (Mass) (0.0-3.38) ng/mL Troponin I 1.7700 H* (0.00-0.120) ng/mL Total Protein (6.3-8.3) g/dL Albumin (3.5-5.0) g/dL Globulin (2.2-3.9) gm/dL Albumin/Globulin Ratio (1.0-2.1) Procalcitonin 1.93 H (0.19-0.49) NG/ML Arterial Blood Potassium (3.6-5.2) mmol/L 09/11/17 09/11/17 09/11/17 Range/Units 06:27 06:27 05:57 WBC 10.0 (4.8-10.8) K/uL RBC 5.45 H (3.80-5.20) Mil/uL Hgb 12.2 (11.0-16.0) g/dL Hct 38.6 (34.0-47.0) % MCV 70.8 L (81.0-99.0) fL MCH 22.3 L (27.0-31.0) pg MCHC 31.5 L (33.0-37.0) g/dL RDW 21.6 H (11.5-14.5) % Plt Count 333 (130-400) K/uL MPV 8.8 (7.2-11.7) fL Neut % (Auto) 63.9 (50.0-75.0) % Lymph % (Auto) 19.2 L (20.0-40.0) % Ceiba % (Auto) 15.4 H (0.0-10.0) % Eos % (Auto) 1.0 (0.0-4.0) % Baso % (Auto) 0.5 (0.0-2.0) % Neut # (Auto) 6.4 (1.8-7.0) K/uL Lymph # (Auto) 1.9 (1.0-4.3) K/uL Ceiba # (Auto) 1.5 H (0.0-0.8) K/uL Eos # (Auto) 0.1 (0.0-0.7) K/uL Baso # (Auto) 0.1 (0.0-0.2) K/uL Puncture Site pCO2 (35-45) mm/Hg pO2 (80-100) mm/Hg HCO3 (21-28) mmol/L ABG pH (7.35-7.45) ABG Total CO2 (22-28) mmol/L ABG O2 Saturation (95-98) % ABG Base Excess (-2.0-3.0) mmol/L Alessandro Test ABG Potassium (3.6-5.2) mmol/L A-a O2 Difference mm/Hg Respiratory Index Sodium 145 (132-148) mmol/l Chloride 98 (98-107) mmol/L Glucose (65-105) mg/dl Lactate (0.7-2.1) mmol/L Liter Flow FiO2 % Potassium 4.7 (3.6-5.2) mmol/L Carbon Dioxide 23 (22-30) mmol/L Anion Gap 30 H (10-20) BUN 47 H (7-17) mg/dL Creatinine 7.7 H* D (0.7-1.2) mg/dL Est GFR ( Amer) 6 Est GFR (Non-Af Amer) 5 POC Glucose (mg/dL) 153 H (65-110) mg/dL Random Glucose 139 H (65-105) mg/dL Calcium 9.1 (8.6-10.4) mg/dl Phosphorus 6.3 H (2.5-4.5) mg/dL Magnesium 2.4 H (1.6-2.3) mg/dL Total Bilirubin 0.9 (0.2-1.3) mg/dL AST 31 (14-36) U/L ALT 10 (9-52) U/L Alkaline Phosphatase 79 (38-126) U/L Total Creatine Kinase (30-135) U/L CK-MB (Mass) (0.0-3.38) ng/mL Troponin I (0.00-0.120) ng/mL Total Protein 7.6 (6.3-8.3) g/dL Albumin 4.2 (3.5-5.0) g/dL Globulin 3.4 (2.2-3.9) gm/dL Albumin/Globulin Ratio 1.2 (1.0-2.1) Procalcitonin (0.19-0.49) NG/ML Arterial Blood Potassium (3.6-5.2) mmol/L 09/10/17 09/10/17 09/10/17 Range/Units 23:44 18:06 17:51 WBC (4.8-10.8) K/uL RBC (3.80-5.20) Mil/uL Hgb (11.0-16.0) g/dL Hct (34.0-47.0) % MCV (81.0-99.0) fL MCH (27.0-31.0) pg MCHC (33.0-37.0) g/dL RDW (11.5-14.5) % Plt Count (130-400) K/uL MPV (7.2-11.7) fL Neut % (Auto) (50.0-75.0) % Lymph % (Auto) (20.0-40.0) % Ceiba % (Auto) (0.0-10.0) % Eos % (Auto) (0.0-4.0) % Baso % (Auto) (0.0-2.0) % Neut # (Auto) (1.8-7.0) K/uL Lymph # (Auto) (1.0-4.3) K/uL Ceiba # (Auto) (0.0-0.8) K/uL Eos # (Auto) (0.0-0.7) K/uL Baso # (Auto) (0.0-0.2) K/uL Puncture Site pCO2 (35-45) mm/Hg pO2 (80-100) mm/Hg HCO3 (21-28) mmol/L ABG pH (7.35-7.45) ABG Total CO2 (22-28) mmol/L ABG O2 Saturation (95-98) % ABG Base Excess (-2.0-3.0) mmol/L Alessandro Test ABG Potassium (3.6-5.2) mmol/L A-a O2 Difference mm/Hg Respiratory Index Sodium 143 (132-148) mmol/l Chloride 99 (98-107) mmol/L Glucose (65-105) mg/dl Lactate (0.7-2.1) mmol/L Liter Flow FiO2 % Potassium 4.5 (3.6-5.2) mmol/L Carbon Dioxide 26 (22-30) mmol/L Anion Gap 23 H (10-20) BUN 34 H (7-17) mg/dL Creatinine 6.4 H (0.7-1.2) mg/dL Est GFR ( Amer) 8 Est GFR (Non-Af Amer) 6 POC Glucose (mg/dL) 137 H 110 (65-110) mg/dL Random Glucose 118 H (65-105) mg/dL Calcium 8.8 (8.6-10.4) mg/dl Phosphorus (2.5-4.5) mg/dL Magnesium 2.3 (1.6-2.3) mg/dL Total Bilirubin 0.9 (0.2-1.3) mg/dL AST 27 (14-36) U/L ALT 12 (9-52) U/L Alkaline Phosphatase 73 (38-126) U/L Total Creatine Kinase 50 (30-135) U/L CK-MB (Mass) 2.37 (0.0-3.38) ng/mL Troponin I 2.7900 H* (0.00-0.120) ng/mL Total Protein 7.4 (6.3-8.3) g/dL Albumin 3.9 (3.5-5.0) g/dL Globulin 3.6 (2.2-3.9) gm/dL Albumin/Globulin Ratio 1.1 (1.0-2.1) Procalcitonin (0.19-0.49) NG/ML Arterial Blood Potassium (3.6-5.2) mmol/L 09/10/17 09/10/17 Range/Units 17:51 17:40 WBC 7.6 (4.8-10.8) K/uL RBC 5.42 H (3.80-5.20) Mil/uL Hgb 11.9 (11.0-16.0) g/dL Hct 38.0 (34.0-47.0) % MCV 70.1 L (81.0-99.0) fL MCH 22.0 L (27.0-31.0) pg MCHC 31.4 L (33.0-37.0) g/dL RDW 21.5 H (11.5-14.5) % Plt Count 306 (130-400) K/uL MPV 8.6 (7.2-11.7) fL Neut % (Auto) 56.6 (50.0-75.0) % Lymph % (Auto) 25.4 (20.0-40.0) % Ceiba % (Auto) 14.4 H (0.0-10.0) % Eos % (Auto) 2.4 (0.0-4.0) % Baso % (Auto) 1.2 (0.0-2.0) % Neut # (Auto) 4.3 (1.8-7.0) K/uL Lymph # (Auto) 1.9 (1.0-4.3) K/uL Ceiba # (Auto) 1.1 H (0.0-0.8) K/uL Eos # (Auto) 0.2 (0.0-0.7) K/uL Baso # (Auto) 0.1 (0.0-0.2) K/uL Puncture Site Rradial pCO2 38 (35-45) mm/Hg pO2 126 H (80-100) mm/Hg HCO3 25.8 (21-28) mmol/L ABG pH 7.43 (7.35-7.45) ABG Total CO2 26.4 (22-28) mmol/L ABG O2 Saturation 98.8 H (95-98) % ABG Base Excess 1.0 (-2.0-3.0) mmol/L Alessandro Test Pos ABG Potassium 3.7 (3.6-5.2) mmol/L A-a O2 Difference 26.0 mm/Hg Respiratory Index 0.2 Sodium 142.0 (132-148) mmol/l Chloride 105.0 (98-107) mmol/L Glucose 116 H (65-105) mg/dl Lactate 1.2 (0.7-2.1) mmol/L Liter Flow 2.0 FiO2 28.0 % Potassium (3.6-5.2) mmol/L Carbon Dioxide (22-30) mmol/L Anion Gap (10-20) BUN (7-17) mg/dL Creatinine (0.7-1.2) mg/dL Est GFR ( Amer) Est GFR (Non-Af Amer) POC Glucose (mg/dL) (65-110) mg/dL Random Glucose (65-105) mg/dL Calcium (8.6-10.4) mg/dl Phosphorus (2.5-4.5) mg/dL Magnesium (1.6-2.3) mg/dL Total Bilirubin (0.2-1.3) mg/dL AST (14-36) U/L ALT (9-52) U/L Alkaline Phosphatase (38-126) U/L Total Creatine Kinase (30-135) U/L CK-MB (Mass) (0.0-3.38) ng/mL Troponin I (0.00-0.120) ng/mL Total Protein (6.3-8.3) g/dL Albumin (3.5-5.0) g/dL Globulin (2.2-3.9) gm/dL Albumin/Globulin Ratio (1.0-2.1) Procalcitonin (0.19-0.49) NG/ML Arterial Blood Potassium 3.7 (3.6-5.2) mmol/L Laboratory Results - last 24 hr 09/10/17 09/10/17 09/10/17 17:40 17:51 17:51 WBC 7.6 RBC 5.42 H Hgb 11.9 Hct 38.0 MCV 70.1 L MCH 22.0 L MCHC 31.4 L RDW 21.5 H Plt Count 306 MPV 8.6 Neut % (Auto) 56.6 Lymph % (Auto) 25.4 Ceiba % (Auto) 14.4 H Eos % (Auto) 2.4 Baso % (Auto) 1.2 Neut # (Auto) 4.3 Lymph # (Auto) 1.9 Ceiba # (Auto) 1.1 H Eos # (Auto) 0.2 Baso # (Auto) 0.1 Puncture Site Rradial pCO2 38 pO2 126 H HCO3 25.8 ABG pH 7.43 ABG Total CO2 26.4 ABG O2 Saturation 98.8 H ABG Base Excess 1.0 Alessandro Test Pos ABG Potassium 3.7 A-a O2 Difference 26.0 Respiratory Index 0.2 Sodium 142.0 143 Chloride 105.0 99 Glucose 116 H Lactate 1.2 Liter Flow 2.0 FiO2 28.0 Potassium 4.5 Carbon Dioxide 26 Anion Gap 23 H BUN 34 H Creatinine 6.4 H Est GFR ( Amer) 8 Est GFR (Non-Af Amer) 6 POC Glucose (mg/dL) Random Glucose 118 H Calcium 8.8 Phosphorus Magnesium 2.3 Total Bilirubin 0.9 AST 27 ALT 12 Alkaline Phosphatase 73 Total Creatine Kinase 50 CK-MB (Mass) 2.37 Troponin I 2.7900 H* Total Protein 7.4 Albumin 3.9 Globulin 3.6 Albumin/Globulin Ratio 1.1 Procalcitonin Arterial Blood Potassium 3.7 09/10/17 09/10/17 09/11/17 18:06 23:44 05:57 WBC RBC Hgb Hct MCV MCH MCHC RDW Plt Count MPV Neut % (Auto) Lymph % (Auto) Ceiba % (Auto) Eos % (Auto) Baso % (Auto) Neut # (Auto) Lymph # (Auto) Ceiba # (Auto) Eos # (Auto) Baso # (Auto) Puncture Site pCO2 pO2 HCO3 ABG pH ABG Total CO2 ABG O2 Saturation ABG Base Excess Alessandro Test ABG Potassium A-a O2 Difference Respiratory Index Sodium Chloride Glucose Lactate Liter Flow FiO2 Potassium Carbon Dioxide Anion Gap BUN Creatinine Est GFR ( Amer) Est GFR (Non-Af Amer) POC Glucose (mg/dL) 110 137 H 153 H Random Glucose Calcium Phosphorus Magnesium Total Bilirubin AST ALT Alkaline Phosphatase Total Creatine Kinase CK-MB (Mass) Troponin I Total Protein Albumin Globulin Albumin/Globulin Ratio Procalcitonin Arterial Blood Potassium 09/11/17 09/11/17 09/11/17 06:27 06:27 11:22 WBC 10.0 RBC 5.45 H Hgb 12.2 Hct 38.6 MCV 70.8 L MCH 22.3 L MCHC 31.5 L RDW 21.6 H Plt Count 333 MPV 8.8 Neut % (Auto) 63.9 Lymph % (Auto) 19.2 L Ceiba % (Auto) 15.4 H Eos % (Auto) 1.0 Baso % (Auto) 0.5 Neut # (Auto) 6.4 Lymph # (Auto) 1.9 Ceiba # (Auto) 1.5 H Eos # (Auto) 0.1 Baso # (Auto) 0.1 Puncture Site pCO2 pO2 HCO3 ABG pH ABG Total CO2 ABG O2 Saturation ABG Base Excess Alessandro Test ABG Potassium A-a O2 Difference Respiratory Index Sodium 145 Chloride 98 Glucose Lactate Liter Flow FiO2 Potassium 4.7 Carbon Dioxide 23 Anion Gap 30 H BUN 47 H Creatinine 7.7 H* D Est GFR ( Amer) 6 Est GFR (Non-Af Amer) 5 POC Glucose (mg/dL) Random Glucose 139 H Calcium 9.1 Phosphorus 6.3 H Magnesium 2.4 H Total Bilirubin 0.9 AST 31 ALT 10 Alkaline Phosphatase 79 Total Creatine Kinase CK-MB (Mass) Troponin I 1.7700 H* Total Protein 7.6 Albumin 4.2 Globulin 3.4 Albumin/Globulin Ratio 1.2 Procalcitonin Arterial Blood Potassium 09/11/17 09/11/17 11:22 11:46 WBC RBC Hgb Hct MCV MCH MCHC RDW Plt Count MPV Neut % (Auto) Lymph % (Auto) Ce[place] % (Auto) Eos % (Auto) Baso % (Auto) Neut # (Auto) Lymph # (Auto) Ceiba # (Auto) Eos # (Auto) Baso # (Auto) Puncture Site pCO2 pO2 HCO3 ABG pH ABG Total CO2 ABG O2 Saturation ABG Base Excess Alessandro Test ABG Potassium A-a O2 Difference Respiratory Index Sodium Chloride Glucose Lactate Liter Flow FiO2 Potassium Carbon Dioxide Anion Gap BUN Creatinine Est GFR ( Amer) Est GFR (Non-Af Amer) POC Glucose (mg/dL) 141 H Random Glucose Calcium Phosphorus Magnesium Total Bilirubin AST ALT Alkaline Phosphatase Total Creatine Kinase CK-MB (Mass) Troponin I Total Protein Albumin Globulin Albumin/Globulin Ratio Procalcitonin 1.93 H Arterial Blood Potassium EKG/Cardiology Studies: Cardiology / EKG Studies 09/10/17 17:20 ELECTROCARDIOGRAM Stat Comment: Mode Of Transportation: Reason For Exam: hypotension Fingerstick Blood Sugar Results: 141 Critical Care Progress Note - Nutrition Nutrition: Nutrition Category Date Time Status Pureed [Dysphagia/Modified Consistency Diet] [DIET] Diets 09/11/17 Lunch Active Assessment/Plan - Assessment and Plan (Free Text) Plan: 72 year old female with a PMHx of DM2 and ESRD on HD, and hypertension who is being admitted to the ICU for uncontrolled hypertension with a systolic blood pressure above 200 (hypertensive emergency). Plan: Neurology: -Patient is awake and alert, doesn't follow commands, verbal at times -CT head w/o contrast: Atrophy and small vessel disease, no bleed -MRI Brain w/o contast: Suboptimal diagnostic quality due to patient motion. No acute intracranial abnormality. Moderate chronic microangiopathic changes and moderate age-related global parenchymal volume loss. -MRA Head and Neck: Normal MR angiography of the brain; Normal MR Angiography of the neck. -EEG done on Monday, official read pending -Patient does have baseline dementia Cardiology: Hypertensive Emergency, Elevated troponins -No chest pain or palpitations -Continue Aspirin and Plavix daily -Labetalol 100mg PO BID -ROMIx 3 Elevated: 0.1270 --> 0.1440--> 0.1290 -Troponins now 2.79 -> 1.77 -Cardiology on consult, help appreciated Nephrology: ESRD on HD -Nephrology consulted, help appreciated -Continue Hemodialysis TTS -Cont home med Calcium Acetate 1334mg PO TID -Abdomen/pelvis angiogram ordered Endocrinology:Type 2 Diabetes Mellitus -Accuchecks, ISS - medium dose -Diabetic Diet -Crestor 20mg PO QHS Infectious Disease: -Contact isolation for MRSA nares -Procalcitonin elevated 1.93 GI/DVT PPX SCDs, Heparin 5000 units Q12H SC Pepcid 20mg IVP daily Diabetic diet w/ salt restriction <Bhupendra,Tenzin - Last Filed: 09/11/17 20:11> CCU Objective - Vital Signs / Intake & Output Vital Signs (Last 4 hours): Vital Signs Temp Pulse Resp BP Pulse Ox 09/11/17 19:22 88 135/60 09/11/17 19:00 87 15 09/11/17 18:23 83 18 113/43 L 09/11/17 18:00 82 18 09/11/17 17:22 79 17 158/63 H 100 09/11/17 17:14 80 14 139/63 100 09/11/17 17:00 98.3 F 83 12 100 Intake and Output (Last 8hrs): Intake & Output 09/11/17 09/11/17 09/11/17 06:59 14:59 22:59 Intake Total 60 290 80 Balance 60 290 80 Weight 125 lb Intake: Oral 240 80 Other 60 50 Other: # Bowel Movements 1 1 1 - Medications Active Medications: Active Medications Generic Name Dose Route Start Last Admin Trade Name Freq PRN Reason Stop Dose Admin Aspirin 325 mg 09/09/17 17:00 09/11/17 10:16 Aspirin PO 325 mg DAILY JUAN RAMON Administration Calcium Acetate 1,334 mg 09/06/17 10:00 09/11/17 18:22 Phoslo PO 1,334 mg TID JUAN RAMON Administration Clopidogrel Bisulfate 75 mg 09/10/17 10:15 09/11/17 10:16 Plavix PO 75 mg DAILY JUAN RAMON Administration Famotidine 20 mg 09/12/17 10:00 Pepcid PO DAILY JUAN RAMON Heparin Sodium (Porcine) 5,000 units 09/11/17 10:30 09/11/17 11:00 Heparin SC 5,000 units Q12 JUAN RAMON Administration Insulin Human Regular 0 unit 09/09/17 12:00 09/11/17 17:53 Novolin R SC Not Given Q6H [facility] Protocol Labetalol HCl 100 mg 09/11/17 18:00 09/11/17 18:22 Trandate PO 100 mg BID JUAN RAMON Administration Rosuvastatin Calcium 20 mg 09/06/17 08:27 09/10/17 21:52 Crestor PO 20 mg HS JUAN RAMON Administration - Patient Studies Lab Studies: Microbiology Studies 09/06/17 17:00 Blood Culture - Final Blood NO GROWTH AFTER 5 DAYS Gram Stain - Final TEST NOT PERFORMED 09/05/17 20:12 Blood Culture - Final Blood NO GROWTH AFTER 5 DAYS Gram Stain - Final TEST NOT PERFORMED 09/05/17 20:30 Blood Culture - Final Blood NO GROWTH AFTER 5 DAYS Gram Stain - Final TEST NOT PERFORMED Lab Studies 09/11/17 09/11/17 09/11/17 Range/Units 17:45 11:46 11:22 WBC (4.8-10.8) K/uL RBC (3.80-5.20) Mil/uL Hgb (11.0-16.0) g/dL Hct (34.0-47.0) % MCV (81.0-99.0) fL MCH (27.0-31.0) pg MCHC (33.0-37.0) g/dL RDW (11.5-14.5) % Plt Count (130-400) K/uL MPV (7.2-11.7) fL Neut % (Auto) (50.0-75.0) % Lymph % (Auto) (20.0-40.0) % Ceiba % (Auto) (0.0-10.0) % Eos % (Auto) (0.0-4.0) % Baso % (Auto) (0.0-2.0) % Neut # (Auto) (1.8-7.0) K/uL Lymph # (Auto) (1.0-4.3) K/uL Ceiba # (Auto) (0.0-0.8) K/uL Eos # (Auto) (0.0-0.7) K/uL Baso # (Auto) (0.0-0.2) K/uL Sodium (132-148) mmol/L Potassium (3.6-5.2) mmol/L Chloride (98-107) mmol/L Carbon Dioxide (22-30) mmol/L Anion Gap (10-20) BUN (7-17) mg/dL Creatinine (0.7-1.2) mg/dL Est GFR ( Amer) Est GFR (Non-Af Amer) POC Glucose (mg/dL) 129 H 141 H (65-110) mg/dL Random Glucose (65-105) mg/dL Calcium (8.6-10.4) mg/dl Phosphorus (2.5-4.5) mg/dL Magnesium (1.6-2.3) mg/dL Total Bilirubin (0.2-1.3) mg/dL AST (14-36) U/L ALT (9-52) U/L Alkaline Phosphatase (38-126) U/L Troponin I (0.00-0.120) ng/mL Total Protein (6.3-8.3) g/dL Albumin (3.5-5.0) g/dL Globulin (2.2-3.9) gm/dL Albumin/Globulin Ratio (1.0-2.1) Procalcitonin 1.93 H (0.19-0.49) NG/ML 09/11/17 09/11/17 09/11/17 Range/Units 11:22 06:27 06:27 WBC 10.0 (4.8-10.8) K/uL RBC 5.45 H (3.80-5.20) Mil/uL Hgb 12.2 (11.0-16.0) g/dL Hct 38.6 (34.0-47.0) % MCV 70.8 L (81.0-99.0) fL MCH 22.3 L (27.0-31.0) pg MCHC 31.5 L (33.0-37.0) g/dL RDW 21.6 H (11.5-14.5) % Plt Count 333 (130-400) K/uL MPV 8.8 (7.2-11.7) fL Neut % (Auto) 63.9 (50.0-75.0) % Lymph % (Auto) 19.2 L (20.0-40.0) % Ceiba % (Auto) 15.4 H (0.0-10.0) % Eos % (Auto) 1.0 (0.0-4.0) % Baso % (Auto) 0.5 (0.0-2.0) % Neut # (Auto) 6.4 (1.8-7.0) K/uL Lymph # (Auto) 1.9 (1.0-4.3) K/uL Ceiba # (Auto) 1.5 H (0.0-0.8) K/uL Eos # (Auto) 0.1 (0.0-0.7) K/uL Baso # (Auto) 0.1 (0.0-0.2) K/uL Sodium 145 (132-148) mmol/L Potassium 4.7 (3.6-5.2) mmol/L Chloride 98 (98-107) mmol/L Carbon Dioxide 23 (22-30) mmol/L Anion Gap 30 H (10-20) BUN 47 H (7-17) mg/dL Creatinine 7.7 H* D (0.7-1.2) mg/dL Est GFR ( Amer) 6 Est GFR (Non-Af Amer) 5 POC Glucose (mg/dL) (65-110) mg/dL Random Glucose 139 H (65-105) mg/dL Calcium 9.1 (8.6-10.4) mg/dl Phosphorus 6.3 H (2.5-4.5) mg/dL Magnesium 2.4 H (1.6-2.3) mg/dL Total Bilirubin 0.9 (0.2-1.3) mg/dL AST 31 (14-36) U/L ALT 10 (9-52) U/L Alkaline Phosphatase 79 (38-126) U/L Troponin I 1.7700 H* (0.00-0.120) ng/mL Total Protein 7.6 (6.3-8.3) g/dL Albumin 4.2 (3.5-5.0) g/dL Globulin 3.4 (2.2-3.9) gm/dL Albumin/Globulin Ratio 1.2 (1.0-2.1) Procalcitonin (0.19-0.49) NG/ML 09/11/17 09/10/17 09/10/17 Range/Units 05:57 23:44 18:06 WBC (4.8-10.8) K/uL RBC (3.80-5.20) Mil/uL Hgb (11.0-16.0) g/dL Hct (34.0-47.0) % MCV (81.0-99.0) fL MCH (27.0-31.0) pg MCHC (33.0-37.0) g/dL RDW (11.5-14.5) % Plt Count (130-400) K/uL MPV (7.2-11.7) fL Neut % (Auto) (50.0-75.0) % Lymph % (Auto) (20.0-40.0) % [place] % (Auto) (0.0-10.0) % Eos % (Auto) (0.0-4.0) % Baso % (Auto) (0.0-2.0) % Neut # (Auto) (1.8-7.0) K/uL Lymph # (Auto) (1.0-4.3) K/uL [place] # (Auto) (0.0-0.8) K/uL Eos # (Auto) (0.0-0.7) K/uL Baso # (Auto) (0.0-0.2) K/uL Sodium (132-148) mmol/L Potassium (3.6-5.2) mmol/L Chloride (98-107) mmol/L Carbon Dioxide (22-30) mmol/L Anion Gap (10-20) BUN (7-17) mg/dL Creatinine (0.7-1.2) mg/dL Est GFR ( Amer) Est GFR (Non-Af Amer) POC Glucose (mg/dL) 153 H 137 H 110 (65-110) mg/dL Random Glucose (65-105) mg/dL Calcium (8.6-10.4) mg/dl Phosphorus (2.5-4.5) mg/dL Magnesium (1.6-2.3) mg/dL Total Bilirubin (0.2-1.3) mg/dL AST (14-36) U/L ALT (9-52) U/L Alkaline Phosphatase (38-126) U/L Troponin I (0.00-0.120) ng/mL Total Protein (6.3-8.3) g/dL Albumin (3.5-5.0) g/dL Globulin (2.2-3.9) gm/dL Albumin/Globulin Ratio (1.0-2.1) Procalcitonin (0.19-0.49) NG/ML Laboratory Results - last 24 hr 09/10/17 09/10/17 09/11/17 18:06 23:44 05:57 WBC RBC Hgb Hct MCV MCH MCHC RDW Plt Count MPV Neut % (Auto) Lymph % (Auto) [place] % (Auto) Eos % (Auto) Baso % (Auto) Neut # (Auto) Lymph # (Auto) [place] # (Auto) Eos # (Auto) Baso # (Auto) Sodium Potassium Chloride Carbon Dioxide Anion Gap BUN Creatinine Est GFR ( Amer) Est GFR (Non-Af Amer) POC Glucose (mg/dL) 110 137 H 153 H Random Glucose Calcium Phosphorus Magnesium Total Bilirubin AST ALT Alkaline Phosphatase Troponin I Total Protein Albumin Globulin Albumin/Globulin Ratio Procalcitonin 09/11/17 09/11/17 09/11/17 06:27 06:27 11:22 WBC 10.0 RBC 5.45 H Hgb 12.2 Hct 38.6 MCV 70.8 L MCH 22.3 L MCHC 31.5 L RDW 21.6 H Plt Count 333 MPV 8.8 Neut % (Auto) 63.9 Lymph % (Auto) 19.2 L [place] % (Auto) 15.4 H Eos % (Auto) 1.0 Baso % (Auto) 0.5 Neut # (Auto) 6.4 Lymph # (Auto) 1.9 [place] # (Auto) 1.5 H Eos # (Auto) 0.1 Baso # (Auto) 0.1 Sodium 145 Potassium 4.7 Chloride 98 Carbon Dioxide 23 Anion Gap 30 H BUN 47 H Creatinine 7.7 H* D Est GFR ( Amer) 6 Est GFR (Non-Af Amer) 5 POC Glucose (mg/dL) Random Glucose 139 H Calcium 9.1 Phosphorus 6.3 H Magnesium 2.4 H Total Bilirubin 0.9 AST 31 ALT 10 Alkaline Phosphatase 79 Troponin I 1.7700 H* Total Protein 7.6 Albumin 4.2 Globulin 3.4 Albumin/Globulin Ratio 1.2 Procalcitonin 09/11/17 09/11/17 09/11/17 11:22 11:46 17:45 WBC RBC Hgb Hct MCV MCH MCHC RDW Plt Count MPV Neut % (Auto) Lymph % (Auto) [place] % (Auto) Eos % (Auto) Baso % (Auto) Neut # (Auto) Lymph # (Auto) [place] # (Auto) Eos # (Auto) Baso # (Auto) Sodium Potassium Chloride Carbon Dioxide Anion Gap BUN Creatinine Est GFR ( Amer) Est GFR (Non-Af Amer) POC Glucose (mg/dL) 141 H 129 H Random Glucose Calcium Phosphorus Magnesium Total Bilirubin AST ALT Alkaline Phosphatase Troponin I Total Protein Albumin Globulin Albumin/Globulin Ratio Procalcitonin 1.93 H Critical Care Progress Note - Nutrition Nutrition: Nutrition Category Date Time Status Pureed [Dysphagia/Modified Consistency Diet] [DIET] Diets 09/11/17 Lunch Active Attending/Attestation - Attestation I have personally seen and examined this patient.: Yes I have fully participated in the care of the patient.: Yes I have reviewed all pertinent clinical information: Yes Notes (Text): 09/11/17 20:10 Patient is still confused. Agitated. But patient is able to move all 4 extremities. Patient will be getting the hemodialysis tomorrow. The BP is stable. Most likely patient is metabolic encephalopathy, secondary to uremia, as well as hypertensive crisis. Improving at this time. We'll continue to monitor.
--- NOTE | 2017-09-11 14:44 | CP.PCM.CON ---
<Samuel Kay - Last Filed: 09/11/17 18:48> History of Present Illness - History of Present Illness History of Present Illness: Consult note for Dr. Ace HPI: Patient is a 72 year old female with past medical history of DM2, HTN, and ESRD on HD who was admitted to [facility] for HTN Emergency. Patient reportedly had elevated BP 2 weeks prior to presentation. At time of presentation patient was at her weekly dialysis session when she was noted to have elevated BP that was resistant to the administration of Clonidine medication. According to family patient also had been experiencing symptoms of not feeling herself for 48 hours leading up to most recent dialysis session. Patient was evaluated in [facility] ED and found to have elevated BP and AMS. Patient was admitted for HTN emergency. Imaging was preformed of her head and neck which showed chronic microvasculature changes without signs of acute bleed. Patient was admitted to the general medical floor and BP was managed with oral medications. Patietn BP was noted to be difficult to control with oral medications in combination with patient poor compliance with taking medication. IV anti-hypertensives were started and the patient was transferred to the ICU for further monitoring and medical management. Patient is alert and oriented to verbal stimuli and tactile stimulus at time of interview. 12 point ROS is unable to be obtained. PMD: Dr Cheung ([place]) PMHx: DM2 w/ ESRD on HD TTS PSHx: renal biopsy 2015, bone marrow biopsy 2013, colonoscopy 2013 Allergies: NKA Home meds: Calcium Acetate 1334mg PO TID, Hydralazine 25mg PO QID, Norvasc 10mg PO QD, Lasix 40mg PO QD FamHx: Denies SocialHx: Denied hx of tobacco, alcohol or illicit drug use; lives with son at home Review of Systems - Review of Systems Systems not reviewed;Unavailable: Altered Mental Status Past Patient History - Tetanus Immunizations Tetanus Immunization: Unknown - Past Medical History & Family History Past Medical History?: Yes - Past Social History Smoking Status: Former Smoker Alcohol: None Drugs: Denies Home Situation {Lives}: With Family (lives with son) - CARDIAC Hx Hypercholesterolemia: Yes - PULMONARY Hx Respiratory Disorders: No - NEUROLOGICAL Hx Neurological Disorder: No - HEENT Hx HEENT Problems: Yes Hx Cataracts: Yes (bilat iol) - RENAL Hx Chronic Kidney Disease: Yes - ENDOCRINE/METABOLIC Hx Diabetes Mellitus Type 2: Yes - HEMATOLOGICAL/ONCOLOGICAL Hx Anemia: Yes - INTEGUMENTARY Hx Dermatological Problems: No - MUSCULOSKELETAL/RHEUMATOLOGICAL Hx Falls: No - GASTROINTESTINAL Hx Gastrointestinal Disorders: No - GENITOURINARY/GYNECOLOGICAL Hx Genitourinary Disorders: No - PSYCHIATRIC Hx Substance Use: No - SURGICAL HISTORY Hx Surgeries: Yes Hx Cataract Extraction: Yes Other/Comment: perma cath insertion - ANESTHESIA Hx Anesthesia: Yes Hx Anesthesia Reactions: No Hx Malignant Hyperthermia: No Meds Allergies/Adverse Reactions: Allergies Allergy/AdvReac Type Severity Reaction Status Date / Time No Known Allergies Allergy Verified 11/11/16 17:27 - Medications Medications: Current Medications Aspirin (Aspirin) 325 mg PO DAILY [facility] Last Admin: 09/11/17 10:16 Dose: 325 mg Calcium Acetate (Phoslo) 1,334 mg PO TID [facility] Last Admin: 09/11/17 10:16 Dose: 1,334 mg Clopidogrel Bisulfate (Plavix) 75 mg PO DAILY [facility] Last Admin: 09/11/17 10:16 Dose: 75 mg Famotidine (Pepcid) 20 mg PO DAILY [facility] Heparin Sodium (Porcine) (Heparin) 5,000 units SC Q12 [facility] Last Admin: 09/11/17 11:00 Dose: 5,000 units Insulin Human Regular (Novolin R) 0 unit SC Q6H [facility] PRN Reason: Protocol Last Admin: 09/11/17 12:00 Dose: Not Given Labetalol HCl (Trandate) 100 mg PO BID [facility] Rosuvastatin Calcium (Crestor) 20 mg PO HS [facility] Last Admin: 09/10/17 21:52 Dose: 20 mg Physical Exam - Constitutional Appears: Non-toxic, No Acute Distress - Head Exam Head Exam: ATRAUMATIC, NORMAL INSPECTION, NORMOCEPHALIC - Eye Exam Eye Exam: EOMI Pupil Exam: PERRL - ENT Exam ENT Exam: Mucous Membranes Moist - Respiratory Exam Respiratory Exam: Clear to Auscultation Bilateral, NORMAL BREATHING PATTERN. absent: Rhonchi, Wheezes, Respiratory Distress, Stridor - Cardiovascular Exam Cardiovascular Exam: Tachycardia, +S1, +S2 - GI/Abdominal Exam GI & Abdominal Exam: Normal Bowel Sounds, Soft. absent: Firm, Guarding, Tenderness - Extremities Exam Extremities exam: Positive for: pedal pulses present. Negative for: calf tenderness, pedal edema Additional comments: [place] on hands bilaterally - Neurological Exam Neurological exam: Alert Additional comments: Patient alert and oriented to verbal stimuli and tactile simuli at time of interview, moves all four extremities spontaneously, able to follow simple commands - Skin Skin Exam: Dry, Intact, Warm Results - Vital Signs Recent Vital Signs: Last Vital Signs Temp 98.7 F 09/11/17 09:00 Pulse 99 H 09/11/17 12:00 Resp 23 09/11/17 12:00 BP 137/45 L 09/11/17 11:22 Pulse Ox 100 09/11/17 12:00 - Labs Result Diagrams: 09/11/17 06:27 09/11/17 06:27 Labs: Laboratory Results - last 24 hr 09/10/17 09/10/17 09/10/17 17:40 17:51 17:51 WBC 7.6 RBC 5.42 H Hgb 11.9 Hct 38.0 MCV 70.1 L MCH 22.0 L MCHC 31.4 L RDW 21.5 H Plt Count 306 MPV 8.6 Neut % (Auto) 56.6 Lymph % (Auto) 25.4 [place] % (Auto) 14.4 H Eos % (Auto) 2.4 Baso % (Auto) 1.2 Neut # (Auto) 4.3 Lymph # (Auto) 1.9 [place] # (Auto) 1.1 H Eos # (Auto) 0.2 Baso # (Auto) 0.1 Puncture Site Rradial pCO2 38 pO2 126 H HCO3 25.8 ABG pH 7.43 ABG Total CO2 26.4 ABG O2 Saturation 98.8 H ABG Base Excess 1.0 Alessandro Test Pos ABG Potassium 3.7 A-a O2 Difference 26.0 Respiratory Index 0.2 Sodium 142.0 143 Chloride 105.0 99 Glucose 116 H Lactate 1.2 Liter Flow 2.0 FiO2 28.0 Potassium 4.5 Carbon Dioxide 26 Anion Gap 23 H BUN 34 H Creatinine 6.4 H Est GFR ( Amer) 8 Est GFR (Non-Af Amer) 6 POC Glucose (mg/dL) Random Glucose 118 H Calcium 8.8 Phosphorus Magnesium 2.3 Total Bilirubin 0.9 AST 27 ALT 12 Alkaline Phosphatase 73 Total Creatine Kinase 50 CK-MB (Mass) 2.37 Troponin I 2.7900 H* Total Protein 7.4 Albumin 3.9 Globulin 3.6 Albumin/Globulin Ratio 1.1 Procalcitonin Arterial Blood Potassium 3.7 09/10/17 09/10/17 09/11/17 18:06 23:44 05:57 WBC RBC Hgb Hct MCV MCH MCHC RDW Plt Count MPV Neut % (Auto) Lymph % (Auto) [place] % (Auto) Eos % (Auto) Baso % (Auto) Neut # (Auto) Lymph # (Auto) [place] # (Auto) Eos # (Auto) Baso # (Auto) Puncture Site pCO2 pO2 HCO3 ABG pH ABG Total CO2 ABG O2 Saturation ABG Base Excess Alessandro Test ABG Potassium A-a O2 Difference Respiratory Index Sodium Chloride Glucose Lactate Liter Flow FiO2 Potassium Carbon Dioxide Anion Gap BUN Creatinine Est GFR ( Amer) Est GFR (Non-Af Amer) POC Glucose (mg/dL) 110 137 H 153 H Random Glucose Calcium Phosphorus Magnesium Total Bilirubin AST ALT Alkaline Phosphatase Total Creatine Kinase CK-MB (Mass) Troponin I Total Protein Albumin Globulin Albumin/Globulin Ratio Procalcitonin Arterial Blood Potassium 09/11/17 09/11/17 09/11/17 06:27 06:27 11:22 WBC 10.0 RBC 5.45 H Hgb 12.2 Hct 38.6 MCV 70.8 L MCH 22.3 L MCHC 31.5 L RDW 21.6 H Plt Count 333 MPV 8.8 Neut % (Auto) 63.9 Lymph % (Auto) 19.2 L [place] % (Auto) 15.4 H Eos % (Auto) 1.0 Baso % (Auto) 0.5 Neut # (Auto) 6.4 Lymph # (Auto) 1.9 [place] # (Auto) 1.5 H Eos # (Auto) 0.1 Baso # (Auto) 0.1 Puncture Site pCO2 pO2 HCO3 ABG pH ABG Total CO2 ABG O2 Saturation ABG Base Excess Alessandro Test ABG Potassium A-a O2 Difference Respiratory Index Sodium 145 Chloride 98 Glucose Lactate Liter Flow FiO2 Potassium 4.7 Carbon Dioxide 23 Anion Gap 30 H BUN 47 H Creatinine 7.7 H* D Est GFR ( Amer) 6 Est GFR (Non-Af Amer) 5 POC Glucose (mg/dL) Random Glucose 139 H Calcium 9.1 Phosphorus 6.3 H Magnesium 2.4 H Total Bilirubin 0.9 AST 31 ALT 10 Alkaline Phosphatase 79 Total Creatine Kinase CK-MB (Mass) Troponin I 1.7700 H* Total Protein 7.6 Albumin 4.2 Globulin 3.4 Albumin/Globulin Ratio 1.2 Procalcitonin Arterial Blood Potassium 09/11/17 09/11/17 11:22 11:46 WBC RBC Hgb Hct MCV MCH MCHC RDW Plt Count MPV Neut % (Auto) Lymph % (Auto) [place] % (Auto) Eos % (Auto) Baso % (Auto) Neut # (Auto) Lymph # (Auto) [place] # (Auto) Eos # (Auto) Baso # (Auto) Puncture Site pCO2 pO2 HCO3 ABG pH ABG Total CO2 ABG O2 Saturation ABG Base Excess Alessandro Test ABG Potassium A-a O2 Difference Respiratory Index Sodium Chloride Glucose Lactate Liter Flow FiO2 Potassium Carbon Dioxide Anion Gap BUN Creatinine Est GFR ( Amer) Est GFR (Non-Af Amer) POC Glucose (mg/dL) 141 H Random Glucose Calcium Phosphorus Magnesium Total Bilirubin AST ALT Alkaline Phosphatase Total Creatine Kinase CK-MB (Mass) Troponin I Total Protein Albumin Globulin Albumin/Globulin Ratio Procalcitonin 1.93 H Arterial Blood Potassium Assessment & Plan - Assessment and Plan (Free Text) Assessment: 72 year old female with a past medical history of DM2, HTN, ESRD on HD, and baseline demenita? who is currently admitted to the ICU for uncontrolled hypertension and suspected hypertensive encephalopathy. Patient to remain in ICU for further monitoring and medical treatment. Plan: 1. HTN Emergency - Chronic HTN treated with oral anti-hypertensives at home - AMS secondary elevated BP - Patient BP trending downward - Hold anti-hypertensives at this time as BP is 130's/50's - Continue ASA and Plavix - CTA of renal arteries for investigation of etiology of elevated BP 2. Elevated Troponin - Troponin spike of 2.79 after admission - Etiology: Likely secondary to low perfusion with hypotensive episode coupled with ESRD - EKG reviewed without ST segment depression/elevations - Troponin trending down DVT/GI PPX - SCDs, Heparin [id number] SC - Pepcid 20 IVP stella Kay PGY-1 - Date & Time Date: 09/11/17 Time: 07:15 <Gutierrez Ace - Last Filed: 09/13/17 14:37> Meds - Medications Medications: Current Medications Aspirin (Aspirin) 325 mg PO DAILY [facility] Last Admin: 09/13/17 09:18 Dose: 325 mg Calcium Acetate (Phoslo) 1,334 mg PO TID [facility] Last Admin: 09/13/17 09:17 Dose: 1,334 mg Clopidogrel Bisulfate (Plavix) 75 mg PO DAILY [facility] Last Admin: 09/13/17 09:18 Dose: 75 mg Dextrose (Dextrose 50% Inj) 0 ml IV STAT PRN; Protocol PRN Reason: Hypoglycemia Protocol Dextrose (Glutose 15) 0 gm PO ONCE PRN; Protocol PRN Reason: Hypoglycemia Protocol Famotidine (Pepcid) 20 mg PO DAILY [facility] Last Admin: 09/13/17 09:18 Dose: 20 mg Glucagon (Glucagen Diagnostic Kit) 0 mg IM STAT PRN; Protocol PRN Reason: Hypoglycemia Protocol Heparin Sodium (Porcine) (Heparin) 5,000 units SC Q12 [facility] Last Admin: 09/13/17 09:18 Dose: 5,000 units Dextrose (Dextrose 5% In Water 1000 Ml) 1,000 mls @ 0 mls/hr IV .Q0M PRN; Protocol; Per Protocol PRN Reason: Hypoglycemia Protocol Insulin Human Regular (Novolin R) 0 unit SC Q6H [facility] PRN Reason: Protocol Last Admin: 09/13/17 05:47 Dose: Not Given Labetalol HCl (Trandate) 200 mg PO BID [facility] Last Admin: 09/13/17 09:23 Dose: 200 mg Rosuvastatin Calcium (Crestor) 20 mg PO [facility] Last Admin: 09/12/17 21:43 Dose: 20 mg Results - Vital Signs Recent Vital Signs: Last Vital Signs Temp 98.6 F 09/13/17 04:00 Pulse 92 H 09/13/17 11:48 Resp 21 09/13/17 04:00 BP 105/57 L 09/13/17 04:00 Pulse Ox 98 09/13/17 12:00 - Labs Result Diagrams: 09/13/17 11:25 09/13/17 11:25 Labs: Laboratory Results - last 24 hr 09/12/17 09/12/17 09/13/17 17:34 23:29 05:36 WBC RBC Hgb Hct MCV MCH MCHC RDW Plt Count MPV Neut % (Auto) Lymph % (Auto) [place] % (Auto) Eos % (Auto) Baso % (Auto) Neut # (Auto) Lymph # (Auto) [place] # (Auto) Eos # (Auto) Baso # (Auto) Sodium Potassium Chloride Carbon Dioxide Anion Gap BUN Creatinine Est GFR ( Amer) Est GFR (Non-Af Amer) POC Glucose (mg/dL) 94 126 H 137 H Random Glucose Calcium Phosphorus Magnesium Total Bilirubin AST ALT Alkaline Phosphatase Total Protein Albumin Globulin Albumin/Globulin Ratio 09/13/17 09/13/17 09/13/17 11:25 11:25 11:41 WBC 8.2 RBC 4.97 Hgb 10.9 L Hct 34.7 MCV 69.8 L MCH 21.9 L MCHC 31.4 L RDW 20.7 H Plt Count 299 MPV 9.5 Neut % (Auto) 59.1 Lymph % (Auto) 21.8 [place] % (Auto) 15.3 H Eos % (Auto) 2.4 Baso % (Auto) 1.4 Neut # (Auto) 4.8 Lymph # (Auto) 1.8 [place] # (Auto) 1.2 H Eos # (Auto) 0.2 Baso # (Auto) 0.1 Sodium 143 Potassium 4.1 Chloride 96 L Carbon Dioxide 26 Anion Gap 26 H BUN 37 H Creatinine 7.5 H* D Est GFR ( Amer) 6 Est GFR (Non-Af Amer) 5 POC Glucose (mg/dL) 125 H Random Glucose 137 H Calcium 9.1 Phosphorus 5.1 H Magnesium 2.2 Total Bilirubin 0.7 AST 26 ALT 8 L D Alkaline Phosphatase 80 Total Protein 7.8 Albumin 4.1 Globulin 3.7 Albumin/Globulin Ratio 1.1 Attending/Attestation - Attestation I have personally seen and examined this patient.: Yes I have fully participated in the care of the patient.: Yes I have reviewed all pertinent clinical information: Yes Notes (Text): 09/13/17 14:36 72 year old pt presenting with hypertensive emergency etiology unclear ? renal artery stenosis +ve TnI - ? demand vs. CAD BP low normal LENNY evaluation DAPT
--- NOTE | 2017-09-11 23:03 | CP.PCM.CON ---
History of Present Illness - History of Present Illness History of Present Illness: Patient seen and evaluated Admitted for Hypertensive emergency Now BP is good Patient more oriented Past Patient History - Tetanus Immunizations Tetanus Immunization: Unknown - Past Medical History & Family History Past Medical History?: Yes - Past Social History Smoking Status: Former Smoker Alcohol: None Drugs: Denies Home Situation {Lives}: With Family (lives with son) - CARDIAC Hx Hypercholesterolemia: Yes - PULMONARY Hx Respiratory Disorders: No - NEUROLOGICAL Hx Neurological Disorder: No - HEENT Hx HEENT Problems: Yes Hx Cataracts: Yes (bilat iol) - RENAL Hx Chronic Kidney Disease: Yes - ENDOCRINE/METABOLIC Hx Diabetes Mellitus Type 2: Yes - HEMATOLOGICAL/ONCOLOGICAL Hx Anemia: Yes - INTEGUMENTARY Hx Dermatological Problems: No - MUSCULOSKELETAL/RHEUMATOLOGICAL Hx Falls: No - GASTROINTESTINAL Hx Gastrointestinal Disorders: No - GENITOURINARY/GYNECOLOGICAL Hx Genitourinary Disorders: No - PSYCHIATRIC Hx Substance Use: No - SURGICAL HISTORY Hx Surgeries: Yes Hx Cataract Extraction: Yes Other/Comment: perma cath insertion - ANESTHESIA Hx Anesthesia: Yes Hx Anesthesia Reactions: No Hx Malignant Hyperthermia: No Meds Allergies/Adverse Reactions: Allergies Allergy/AdvReac Type Severity Reaction Status Date / Time No Known Allergies Allergy Verified 11/11/16 17:27 - Medications Medications: Current Medications Aspirin (Aspirin) 325 mg PO DAILY [facility] Last Admin: 09/11/17 10:16 Dose: 325 mg Calcium Acetate (Phoslo) 1,334 mg PO TID [facility] Last Admin: 09/11/17 18:22 Dose: 1,334 mg Clopidogrel Bisulfate (Plavix) 75 mg PO DAILY [facility] Last Admin: 09/11/17 10:16 Dose: 75 mg Famotidine (Pepcid) 20 mg PO DAILY [facility] Heparin Sodium (Porcine) (Heparin) 5,000 units SC Q12 [facility] Last Admin: 09/11/17 21:35 Dose: 5,000 units Insulin Human Regular (Novolin R) 0 unit SC Q6H [facility] PRN Reason: Protocol Last Admin: 09/11/17 17:53 Dose: Not Given Labetalol HCl (Trandate) 100 mg PO BID [facility] Last Admin: 09/11/17 18:22 Dose: 100 mg Rosuvastatin Calcium (Crestor) 20 mg PO HS [facility] Last Admin: 09/11/17 21:35 Dose: 20 mg Results - Vital Signs Recent Vital Signs: Last Vital Signs Temp 98.4 F 09/11/17 20:00 Pulse 91 H 09/11/17 22:00 Resp 16 09/11/17 22:00 BP 143/64 09/11/17 21:22 Pulse Ox 94 L 09/11/17 22:00 - Labs Result Diagrams: 09/11/17 06:27 09/11/17 06:27 Labs: Laboratory Results - last 24 hr 09/10/17 09/11/17 09/11/17 23:44 05:57 06:27 WBC 10.0 RBC 5.45 H Hgb 12.2 Hct 38.6 MCV 70.8 L MCH 22.3 L MCHC 31.5 L RDW 21.6 H Plt Count 333 MPV 8.8 Neut % (Auto) 63.9 Lymph % (Auto) 19.2 L [place] % (Auto) 15.4 H Eos % (Auto) 1.0 Baso % (Auto) 0.5 Neut # (Auto) 6.4 Lymph # (Auto) 1.9 [place] # (Auto) 1.5 H Eos # (Auto) 0.1 Baso # (Auto) 0.1 Sodium Potassium Chloride Carbon Dioxide Anion Gap BUN Creatinine Est GFR ( Amer) Est GFR (Non-Af Amer) POC Glucose (mg/dL) 137 H 153 H Random Glucose Calcium Phosphorus Magnesium Total Bilirubin AST ALT Alkaline Phosphatase Troponin I Total Protein Albumin Globulin Albumin/Globulin Ratio Procalcitonin 09/11/17 09/11/17 09/11/17 06:27 11:22 11:22 WBC RBC Hgb Hct MCV MCH MCHC RDW Plt Count MPV Neut % (Auto) Lymph % (Auto) [place] % (Auto) Eos % (Auto) Baso % (Auto) Neut # (Auto) Lymph # (Auto) [place] # (Auto) Eos # (Auto) Baso # (Auto) Sodium 145 Potassium 4.7 Chloride 98 Carbon Dioxide 23 Anion Gap 30 H BUN 47 H Creatinine 7.7 H* D Est GFR ( Amer) 6 Est GFR (Non-Af Amer) 5 POC Glucose (mg/dL) Random Glucose 139 H Calcium 9.1 Phosphorus 6.3 H Magnesium 2.4 H Total Bilirubin 0.9 AST 31 ALT 10 Alkaline Phosphatase 79 Troponin I 1.7700 H* Total Protein 7.6 Albumin 4.2 Globulin 3.4 Albumin/Globulin Ratio 1.2 Procalcitonin 1.93 H 09/11/17 09/11/17 11:46 17:45 WBC RBC Hgb Hct MCV MCH MCHC RDW Plt Count MPV Neut % (Auto) Lymph % (Auto) [place] % (Auto) Eos % (Auto) Baso % (Auto) Neut # (Auto) Lymph # (Auto) [place] # (Auto) Eos # (Auto) Baso # (Auto) Sodium Potassium Chloride Carbon Dioxide Anion Gap BUN Creatinine Est GFR ( Amer) Est GFR (Non-Af Amer) POC Glucose (mg/dL) 141 H 129 H Random Glucose Calcium Phosphorus Magnesium Total Bilirubin AST ALT Alkaline Phosphatase Troponin I Total Protein Albumin Globulin Albumin/Globulin Ratio Procalcitonin
[2017-09-12] MEDS: (Novolin R) Insulin Human Regular 100 units/ml vial SC SCH ×4 (00:14→17:50)
[2017-09-12 05:56] LABS: BASO # 0.1 K/uL (0.0-0.2); BASO % 0.9 % (0.0-2.0); EOS # 0.3 K/uL (0.0-0.7); EOS % 2.6 % (0.0-4.0); HEMOGLOBIN 11.6 g/dL (11.0-16.0); LYMPH % 18.1 % (20.0-40.0); MEAN CELL VOLUME 70.8 fL (81.0-99.0); MEAN PLATELET VOLUME 8.9 fL (7.2-11.7); MONO # 1.5 K/uL (0.0-0.8); MONO % 13.5 % (0.0-10.0); NEUT # 7.2 K/uL (1.8-7.0); NEUT % 64.9 % (50.0-75.0); RBC 5.29 Mil/uL (3.80-5.20); RED CELL DISTRIBUTION WIDTH 21.2 % (11.5-14.5); WHITE BLOOD COUNT 11.1 K/uL (4.8-10.8)
[2017-09-12 06:23] LABS: ALB/GLOB RATIO 1.2 (1.0-2.1); ALBUMIN 3.9 g/dL (3.5-5.0)
--- NOTE | 2017-09-12 06:34 | CP.PCM.PN ---
<Samuel Kay - Last Filed: 09/12/17 06:32> Subjective - Date & Time of Evaluation Date of Evaluation: 09/12/17 Time of Evaluation: 05:45 - Subjective Subjective: Cardiology progress note for Dr. Db Kay DO PGY1 Patient seen and evaluated at bedside in ICU. NO acute events reported overnight per nursing. Patient is responsive to verbal stimuli with limited verbal response. Per nursing patient will have periods of being more alert with speech, but this is not her baseline. Patient unable to participate in ROS. BP reviewed. Objective - Vital Signs/Intake and Output Vital Signs (last 24 hours): Temp Pulse Resp BP Pulse Ox 98.3 F 78 13 167/62 H 99 09/12/17 05:00 09/12/17 06:00 09/12/17 06:00 09/12/17 05:22 09/12/17 06:00 Intake and Output: 09/11/17 09/12/17 18:59 06:59 Intake Total 370 120 Balance 370 120 - Medications Medications: Current Medications Aspirin (Aspirin) 325 mg PO DAILY [facility] Last Admin: 09/11/17 10:16 Dose: 325 mg Calcium Acetate (Phoslo) 1,334 mg PO TID [facility] Last Admin: 09/11/17 18:22 Dose: 1,334 mg Clopidogrel Bisulfate (Plavix) 75 mg PO DAILY [facility] Last Admin: 09/11/17 10:16 Dose: 75 mg Famotidine (Pepcid) 20 mg PO DAILY [facility] Heparin Sodium (Porcine) (Heparin) 5,000 units SC Q12 [facility] Last Admin: 09/11/17 21:35 Dose: 5,000 units Insulin Human Regular (Novolin R) 0 unit SC Q6H [facility] PRN Reason: Protocol Last Admin: 09/12/17 00:14 Dose: Not Given Labetalol HCl (Trandate) 100 mg PO BID [facility] Last Admin: 09/11/17 18:22 Dose: 100 mg Rosuvastatin Calcium (Crestor) 20 mg PO HS [facility] Last Admin: 09/11/17 21:35 Dose: 20 mg - Labs Labs: 09/12/17 05:46 09/12/17 05:44 PT 12.8 SECONDS (9.7-12.2) H 09/05/17 20:16 INR 1.1 09/05/17 20:16 APTT 32 SECONDS (21-34) 09/05/17 20:16 - Constitutional Appears: Non-toxic, No Acute Distress - Head Exam Head Exam: ATRAUMATIC, NORMOCEPHALIC - Eye Exam Eye Exam: EOMI Pupil Exam: PERRL - ENT Exam ENT Exam: Mucous Membranes Moist - Respiratory Exam Respiratory Exam: Clear to Ausculation Bilateral, NORMAL BREATHING PATTERN - Cardiovascular Exam Cardiovascular Exam: REGULAR RHYTHM, +S1, +S2 - GI/Abdominal Exam GI & Abdominal Exam: Normal Bowel Sounds. absent: Firm, Guarding, Rigid, Tenderness - Extremities Exam Extremities Exam: Normal Capillary Refill. absent: Pedal Edema - Neurological Exam Neurological Exam: Alert Additional comments: Patient with spontaneous movement of extremities, responds to verbal and tactile stimuli - Skin Skin Exam: Dry, Intact Assessment and Plan - Assessment and Plan (Free Text) Assessment: 72 year old female with a past medical history of DM2, HTN, ESRD on HD, and baseline demenita? who is currently admitted to the ICU for uncontrolled hypertension and suspected hypertensive encephalopathy. Plan: 1. HTN Emergency - Chronic HTN treated with oral anti-hypertensives at home - AMS secondary elevated BP - Patient BP stable overnight - Pt is on Labatelol BID, may need to add more anti-hypertensive - HD planned for today - Continue ASA and Plavix - CTA of renal arteries for investigation of etiology of elevated BP is planned for today, f/u results 2. Elevated Troponin - Troponin spike of 2.79 after admission - Etiology: Likely secondary to low perfusion with hypotensive episode coupled with ESRD - EKG reviewed without ST segment depression/elevations - Troponin trending down DVT/GI PPX - SCDs, Heparin [id number] SC - Pepcid 20 IVP stella Kay PGY-1 <Gutierrez Ace - Last Filed: 09/13/17 14:38> Objective - Vital Signs/Intake and Output Vital Signs (last 24 hours): Temp Pulse Resp BP Pulse Ox 98.6 F 92 H 21 105/57 L 98 09/13/17 04:00 09/13/17 11:48 09/13/17 04:00 09/13/17 04:00 09/13/17 12:00 - Medications Medications: Current Medications Aspirin (Aspirin) 325 mg PO DAILY [facility] Last Admin: 03/14/18 09:18 Dose: 325 mg Calcium Acetate (Phoslo) 1,334 mg PO TID [facility] Last Admin: 09/13/17 09:17 Dose: 1,334 mg Clopidogrel Bisulfate (Plavix) 75 mg PO DAILY [facility] Last Admin: 09/13/17 09:18 Dose: 75 mg Dextrose (Dextrose 50% Inj) 0 ml IV STAT PRN; Protocol PRN Reason: Hypoglycemia Protocol Dextrose (Glutose 15) 0 gm PO ONCE PRN; Protocol PRN Reason: Hypoglycemia Protocol Famotidine (Pepcid) 20 mg PO DAILY [facility] Last Admin: 09/13/17 09:18 Dose: 20 mg Glucagon (Glucagen Diagnostic Kit) 0 mg IM STAT PRN; Protocol PRN Reason: Hypoglycemia Protocol Heparin Sodium (Porcine) (Heparin) 5,000 units SC Q12 [facility] Last Admin: 09/13/17 09:18 Dose: 5,000 units Dextrose (Dextrose 5% In Water 1000 Ml) 1,000 mls @ 0 mls/hr IV .Q0M PRN; Protocol; Per Protocol PRN Reason: Hypoglycemia Protocol Insulin Human Regular (Novolin R) 0 unit SC Q6H [facility] PRN Reason: Protocol Last Admin: 09/13/17 05:47 Dose: Not Given Labetalol HCl (Trandate) 200 mg PO BID [facility] Last Admin: 09/13/17 09:23 Dose: 200 mg Rosuvastatin Calcium (Crestor) 20 mg PO HS [facility] Last Admin: 09/12/17 21:43 Dose: 20 mg - Labs Labs: 09/13/17 11:25 09/13/17 11:25 PT 12.8 SECONDS (9.7-12.2) H 09/05/17 20:16 INR 1.1 09/05/17 20:16 APTT 32 SECONDS (21-34) 09/05/17 20:16 Attending/Attestation - Attestation I have personally seen and examined this patient.: Yes I have fully participated in the care of the patient.: Yes I have reviewed all pertinent clinical information, including history, physical exam and plan: Yes Notes (Text): 09/13/17 14:37 ? PRES vs. hypertensive encephalopathy LENNY needs w/u +TnI need w/u once MS improves back to baseline cont DAPT and statin cont BB
[2017-09-12] MEDS ORDERED: Iodixanol 320 MG/ML 100 ML BOTTLE IV ONE (10:20)
--- NOTE | 2017-09-12 11:40 | CP.PCM.PN ---
<Kit Brigdes - Last Filed: 09/12/17 13:26> Subjective - Date & Time of Evaluation Date of Evaluation: 09/12/17 Time of Evaluation: 11:00 - Subjective Subjective: Medicine progress note for Dr. Ardon Patient seen and examined. Patient not very verbal at the moment and has some baseline dementia. Cannot obtain ROS. No acute events overnight however, some of her IV lines are infiltrated. Objective - Vital Signs/Intake and Output Vital Signs (last 24 hours): Temp Pulse Resp BP Pulse Ox 98.3 F 94 H 14 166/66 H 100 09/12/17 05:00 09/12/17 08:22 09/12/17 08:22 09/12/17 08:22 09/12/17 08:22 Intake and Output: 09/12/17 09/12/17 06:59 18:59 Intake Total 120 0 Balance 120 0 - Medications Medications: Current Medications Aspirin (Aspirin) 325 mg PO DAILY [facility] Last Admin: 09/12/17 09:08 Dose: 325 mg Calcium Acetate (Phoslo) 1,334 mg PO TID [facility] Last Admin: 09/12/17 09:12 Dose: 1,334 mg Clopidogrel Bisulfate (Plavix) 75 mg PO DAILY [facility] Last Admin: 09/12/17 09:14 Dose: 75 mg Famotidine (Pepcid) 20 mg PO DAILY [facility] Last Admin: 09/12/17 09:11 Dose: 20 mg Heparin Sodium (Porcine) (Heparin) 5,000 units SC Q12 [facility] Last Admin: 09/12/17 09:11 Dose: 5,000 units Insulin Human Regular (Novolin R) 0 unit SC Q6H [facility] PRN Reason: Protocol Last Admin: 09/12/17 06:30 Dose: Not Given Labetalol HCl (Trandate) 100 mg PO BID [facility] Last Admin: 09/12/17 09:14 Dose: 100 mg Rosuvastatin Calcium (Crestor) 20 mg PO HS [facility] Last Admin: 09/11/17 21:35 Dose: 20 mg - Labs Labs: 09/12/17 05:46 09/12/17 05:44 PT 12.8 SECONDS (9.7-12.2) H 09/05/17 20:16 INR 1.1 09/05/17 20:16 APTT 32 SECONDS (21-34) 09/05/17 20:16 - Additional Findings Additional findings: - Constitutional Appears: No Acute Distress, Confused - Head Exam Head Exam: NORMAL INSPECTION, NORMOCEPHALIC - Eye Exam Eye Exam: EOMI, Normal appearance, PERRL Pupil Exam: NORMAL ACCOMODATION - ENT Exam ENT Exam: Mucous Membranes Moist, Normal Exam Additional Comments: NGT in place - Neck Exam Neck Exam: Normal Inspection - Respiratory Exam Respiratory Exam: Clear to Ausculation Bilateral, NORMAL BREATHING PATTERN. absent: Decreased Breath Sounds, Wheezes - Cardiovascular Exam Cardiovascular Exam: REGULAR RHYTHM, RRR, +S1, +S2 - GI/Abdominal Exam GI & Abdominal Exam: Soft, Normal Bowel Sounds. absent: Distended, Tenderness - Rectal Exam Rectal Exam: Deferred - Extremities Exam Extremities Exam: Normal Inspection. absent: Pedal Edema, Tenderness - Neurological Exam Neurological Exam: Alert, Awake. absent: Oriented x3 Neuro motor strength exam: Left Upper Extremity: 5, Right Upper Extremity: 5, Left Lower Extremity: 5, Right Lower Extremity: 5 - Psychiatric Exam Psychiatric exam: Normal Affect, Normal Mood - Skin Skin Exam: Dry, Intact, Normal Color, Warm Assessment and Plan - Assessment and Plan (Free Text) Plan: Hypertensive Emergency 09/10: BP systolic is 120s to 130s. She was able to take PO Norvasc, Cozzarr, and Clonodine transdermal. Will stop the IV nitroglycerin ggt 09/09: Today this morning mental status seems better. Following basic commands again. Blood pressure now lower. On Nitroglycerin ggt and transdermal clonodine this morning. 09/08: Now moved to the ICU and on nitroglycerin ggt and labetalol ggt. Refusing PO medications prior to ICU Failed topical nitroglycerin Imaging so far does not reveal CVA Current medications: Labetalol 200 mg PO BID Altered Mental Status 09/10: Stopped nitroglycerin ggt and resume some PO BP medications The AMS probably is due HTN emergency/encephalopathy. Patient does have baseline dementia. Imaging: CT head w/o contrast: Atrophy and small vessel disease, no bleed MRI Brain w/o contast: Suboptimal diagnostic quality due to patient motion. No acute intracranial abnormality. Moderate chronic microangiopathic changes and moderate age-related global parenchymal volume loss. MRA Head and Neck: Normal MR angiography of the brain; Normal MR Angiography of the neck. F/U EEG Medications: ASA 325 and Plavix 75 daily Elevated Troponins Likely 2/2 demand ischemia and ESRD No chest pain or palpitations Likely related to HTN emergency ROMIx 3 Elevated: 0.1270 --> 0.1440--> 0.1290 Lipid Panel- WNL ESRD on Hemodialysis Nephrology consult, Dr Lukas Borrego - help appreciated HD TTS Home med Calcium Acetate 1334mg PO TID Type 2 Diabetes Mellitus Accuchecks ISS - medium dose Diabetic Diet Crestor 20mg PO QHS Prophylactic Measures Pepcid 20 mg daily SCDs, Heparin 5000 units Q Pureed diet with thin liquids for now Based on if patient is tolerating oral feeding, will reconsider whether or not to switch to tube feedings Discussed with Dr. Duglas Bridges PGY-1 <Lalti Ardon - Last Filed: 09/12/17 15:39> Objective - Vital Signs/Intake and Output Vital Signs (last 24 hours): Temp Pulse Resp BP Pulse Ox 97.9 F 86 15 119/49 L 99 09/12/17 12:00 09/12/17 12:22 09/12/17 12:22 09/12/17 12:22 09/12/17 12:22 Intake and Output: 09/12/17 09/12/17 06:59 18:59 Intake Total 120 0 Balance 120 0 - Medications Medications: Current Medications Aspirin (Aspirin) 325 mg PO DAILY [facility] Last Admin: 09/12/17 09:08 Dose: 325 mg Calcium Acetate (Phoslo) 1,334 mg PO TID [facility] Last Admin: 09/12/17 13:19 Dose: 1,334 mg Clopidogrel Bisulfate (Plavix) 75 mg PO DAILY [facility] Last Admin: 09/12/17 09:14 Dose: 75 mg Dextrose (Dextrose 50% Inj) 0 ml IV STAT PRN; Protocol PRN Reason: Hypoglycemia Protocol Dextrose (Glutose 15) 0 gm PO ONCE PRN; Protocol PRN Reason: Hypoglycemia Protocol Famotidine (Pepcid) 20 mg PO DAILY [facility] Last Admin: 09/12/17 09:11 Dose: 20 mg Glucagon (Glucagen Diagnostic Kit) 0 mg IM STAT PRN; Protocol PRN Reason: Hypoglycemia Protocol Heparin Sodium (Porcine) (Heparin) 5,000 units SC Q12 [facility] Last Admin: 09/12/17 09:11 Dose: 5,000 units Dextrose (Dextrose 5% In Water 1000 Ml) 1,000 mls @ 0 mls/hr IV .Q0M PRN; Protocol; Per Protocol PRN Reason: Hypoglycemia Protocol Insulin Human Regular (Novolin R) 0 unit SC Q6H [facility] PRN Reason: Protocol Last Admin: 09/12/17 12:44 Dose: Not Given Labetalol HCl (Trandate) 200 mg PO BID [facility] Rosuvastatin Calcium (Crestor) 20 mg PO HS [facility] Last Admin: 09/11/17 21:35 Dose: 20 mg - Labs Labs: 09/12/17 05:46 09/12/17 05:44 PT 12.8 SECONDS (9.7-12.2) H 09/05/17 20:16 INR 1.1 09/05/17 20:16 APTT 32 SECONDS (21-34) 09/05/17 20:16 Attending/Attestation - Attestation I have personally seen and examined this patient.: Yes I have fully participated in the care of the patient.: Yes I have reviewed all pertinent clinical information, including history, physical exam and plan: Yes Notes (Text): Patient was seen and examined She was awake when I was examining her. Not following directions. She was talking yesterday " Don't mess with my leg" Patient has NG tube. poor intake. Need to be fed. spoke to her sister and son this morning . as per her sister she was talking to her family yesterday. patient has dementia but has significant decline in her mental status last two weeks. Her blood pressure is was high this morning. After discuss with Dr savi Pinedapressor dose increased and renal angio order d/karo. as per him ists unnecessary to have it on CRF patient follow PT,OT recommendation. encourage oral intake. If she can eat and take meds we will d/c NG tube
--- NOTE | 2017-09-12 12:53 | CP.PCM.PN ---
Subjective - Date & Time of Evaluation Date of Evaluation: 09/12/17 Time of Evaluation: 12:50 - Subjective Subjective: seen and examined pt lethargic, not answering questions unable to obtain ros bp stable controlled at this time Objective - Vital Signs/Intake and Output Vital Signs (last 24 hours): Temp Pulse Resp BP Pulse Ox 97.9 F 86 15 119/49 L 99 09/12/17 12:00 09/12/17 12:22 09/12/17 12:22 09/12/17 12:22 09/12/17 12:22 Intake and Output: 09/12/17 09/12/17 06:59 18:59 Intake Total 120 0 Balance 120 0 - Medications Medications: Current Medications Aspirin (Aspirin) 325 mg PO DAILY [facility] Last Admin: 09/12/17 09:08 Dose: 325 mg Calcium Acetate (Phoslo) 1,334 mg PO TID [facility] Last Admin: 09/12/17 09:12 Dose: 1,334 mg Clopidogrel Bisulfate (Plavix) 75 mg PO DAILY [facility] Last Admin: 09/12/17 09:14 Dose: 75 mg Famotidine (Pepcid) 20 mg PO DAILY [facility] Last Admin: 09/12/17 09:11 Dose: 20 mg Heparin Sodium (Porcine) (Heparin) 5,000 units SC Q12 [facility] Last Admin: 09/12/17 09:11 Dose: 5,000 units Insulin Human Regular (Novolin R) 0 unit SC Q6H [facility] PRN Reason: Protocol Last Admin: 09/12/17 12:44 Dose: Not Given Labetalol HCl (Trandate) 200 mg PO BID [facility] Rosuvastatin Calcium (Crestor) 20 mg PO HS [facility] Last Admin: 09/11/17 21:35 Dose: 20 mg - Labs Labs: 09/12/17 05:46 09/12/17 05:44 PT 12.8 SECONDS (9.7-12.2) H 09/05/17 20:16 INR 1.1 09/05/17 20:16 APTT 32 SECONDS (21-34) 09/05/17 20:16 - Constitutional Appears: No Acute Distress (lethargic), Chronically Ill - Head Exam Head Exam: NORMAL INSPECTION - Eye Exam Eye Exam: Normal appearance, PERRL - ENT Exam ENT Exam: Mucous Membranes Moist, Normal Exam - Respiratory Exam Respiratory Exam: Decreased Breath Sounds, NORMAL BREATHING PATTERN - Cardiovascular Exam Cardiovascular Exam: REGULAR RHYTHM, RRR - GI/Abdominal Exam GI & Abdominal Exam: Distended, Soft - Extremities Exam Extremities Exam: Normal Inspection (lue avf) - Neurological Exam Neurological Exam: absent: Alert, Awake - Skin Skin Exam: Dry, Normal Color, Warm Assessment and Plan (1) Altered mental state Status: Acute (2) Encephalopathy acute Status: Acute (3) Uncontrolled hypertension Status: Acute (4) End-stage renal disease on hemodialysis Status: Chronic (5) Anemia Status: Chronic (6) Type 2 diabetes mellitus Status: Chronic - Assessment and Plan (Free Text) Assessment: maintain hd tts bp controlled at this time hgb at goal blood cultures negative unclear etiology of encephalopathy
[2017-09-12] MEDS ORDERED: Glucagon Recombinant 1 mg Inj IM PRN (13:32)
[2017-09-12] MEDS ORDERED: Dextrose 50% SYRINGE Inj (50 ml) IV PRN (13:32)
--- NOTE | 2017-09-12 23:12 | CP.PCM.PN ---
Subjective - Date & Time of Evaluation Date of Evaluation: 09/12/17 Time of Evaluation: 17:10 - Subjective Subjective: Patient seen and evaluated No cardiac events noted Objective - Vital Signs/Intake and Output Vital Signs (last 24 hours): Temp Pulse Resp BP Pulse Ox 98.5 F 84 17 123/54 L 100 09/12/17 17:00 09/12/17 17:00 09/12/17 17:00 09/12/17 18:10 09/12/17 17:00 Intake and Output: 09/12/17 09/13/17 18:59 06:59 Intake Total 0 Balance 0 - Medications Medications: Current Medications Aspirin (Aspirin) 325 mg PO DAILY [facility] Last Admin: 09/12/17 09:08 Dose: 325 mg Calcium Acetate (Phoslo) 1,334 mg PO TID [facility] Last Admin: 09/12/17 18:51 Dose: 1,334 mg Clopidogrel Bisulfate (Plavix) 75 mg PO DAILY [facility] Last Admin: 09/12/17 09:14 Dose: 75 mg Dextrose (Dextrose 50% Inj) 0 ml IV STAT PRN; Protocol PRN Reason: Hypoglycemia Protocol Dextrose (Glutose 15) 0 gm PO ONCE PRN; Protocol PRN Reason: Hypoglycemia Protocol Famotidine (Pepcid) 20 mg PO DAILY [facility] Last Admin: 09/12/17 09:11 Dose: 20 mg Glucagon (Glucagen Diagnostic Kit) 0 mg IM STAT PRN; Protocol PRN Reason: Hypoglycemia Protocol Heparin Sodium (Porcine) (Heparin) 5,000 units SC Q12 [facility] Last Admin: 09/12/17 21:44 Dose: 5,000 units Dextrose (Dextrose 5% In Water 1000 Ml) 1,000 mls @ 0 mls/hr IV .Q0M PRN; Protocol; Per Protocol PRN Reason: Hypoglycemia Protocol Insulin Human Regular (Novolin R) 0 unit SC Q6H [facility] PRN Reason: Protocol Last Admin: 09/12/17 17:50 Dose: Not Given Labetalol HCl (Trandate) 200 mg PO BID [facility] Last Admin: 09/12/17 18:51 Dose: 200 mg Rosuvastatin Calcium (Crestor) 20 mg PO HS [facility] Last Admin: 09/12/17 21:43 Dose: 20 mg - Labs Labs: 09/12/17 05:46 09/12/17 05:44 PT 12.8 SECONDS (9.7-12.2) H 09/05/17 20:16 INR 1.1 09/05/17 20:16 APTT 32 SECONDS (21-34) 09/05/17 20:16
[2017-09-13] MEDS: (Novolin R) Insulin Human Regular 100 units/ml vial SC SCH ×4 (00:52→18:00)
[2017-09-13 05:10] VITALS: BP 105/57; RESP 21; TEMP 98.6
--- NOTE | 2017-09-13 06:37 | CP.PCM.PN ---
Subjective - Date & Time of Evaluation Date of Evaluation: 09/13/17 Time of Evaluation: 06:00 - Subjective Subjective: Cardiology Progress Note for Dr. Db Kay PGY1 Patient seen and examined in ICU. No acute events overnight. NG tube now in place for administration of medication, suspicion of patient pocketing medication in mouth according to nurse. Patient appears to have improved mentation. Able to respond yes and no to some questioning. Able to verbalize a few words. Patient denies chest pain, trouble breathing, pain, fever, chills. Objective - Vital Signs/Intake and Output Vital Signs (last 24 hours): Temp Pulse Resp BP Pulse Ox 98.6 F 85 21 105/57 L 100 09/13/17 04:00 09/13/17 04:00 09/13/17 04:00 09/13/17 04:00 09/13/17 04:00 Intake and Output: 09/12/17 09/13/17 18:59 06:59 Intake Total 0 Balance 0 - Medications Medications: Current Medications Aspirin (Aspirin) 325 mg PO DAILY [facility] Last Admin: 09/12/17 09:08 Dose: 325 mg Calcium Acetate (Phoslo) 1,334 mg PO TID [facility] Last Admin: 09/12/17 18:51 Dose: 1,334 mg Clopidogrel Bisulfate (Plavix) 75 mg PO DAILY [facility] Last Admin: 09/12/17 09:14 Dose: 75 mg Dextrose (Dextrose 50% Inj) 0 ml IV STAT PRN; Protocol PRN Reason: Hypoglycemia Protocol Dextrose (Glutose 15) 0 gm PO ONCE PRN; Protocol PRN Reason: Hypoglycemia Protocol Famotidine (Pepcid) 20 mg PO DAILY [facility] Last Admin: 09/12/17 09:11 Dose: 20 mg Glucagon (Glucagen Diagnostic Kit) 0 mg IM STAT PRN; Protocol PRN Reason: Hypoglycemia Protocol Heparin Sodium (Porcine) (Heparin) 5,000 units SC Q12 [facility] Last Admin: 09/12/17 21:44 Dose: 5,000 units Dextrose (Dextrose 5% In Water 1000 Ml) 1,000 mls @ 0 mls/hr IV .Q0M PRN; Protocol; Per Protocol PRN Reason: Hypoglycemia Protocol Insulin Human Regular (Novolin R) 0 unit SC Q6H [facility] PRN Reason: Protocol Last Admin: 09/13/17 05:47 Dose: Not Given Labetalol HCl (Trandate) 200 mg PO BID [facility] Last Admin: 09/12/17 18:51 Dose: 200 mg Rosuvastatin Calcium (Crestor) 20 mg PO HS [facility] Last Admin: 09/12/17 21:43 Dose: 20 mg - Labs Labs: 09/12/17 05:46 09/12/17 05:44 PT 12.8 SECONDS (9.7-12.2) H 09/05/17 20:16 INR 1.1 09/05/17 20:16 APTT 32 SECONDS (21-34) 09/05/17 20:16 - Constitutional Appears: No Acute Distress - Head Exam Head Exam: ATRAUMATIC, NORMAL INSPECTION, NORMOCEPHALIC - Eye Exam Eye Exam: EOMI Pupil Exam: PERRL - ENT Exam ENT Exam: Mucous Membranes Moist - Respiratory Exam Respiratory Exam: Decreased Breath Sounds, NORMAL BREATHING PATTERN. absent: Rales, Rhonchi - Cardiovascular Exam Cardiovascular Exam: REGULAR RHYTHM, +S1, +S2 - GI/Abdominal Exam GI & Abdominal Exam: Distended, Soft. absent: Tenderness - Extremities Exam Extremities Exam: absent: Calf Tenderness, Pedal Edema - Neurological Exam Neurological Exam: Alert, Awake - Psychiatric Exam Psychiatric exam: Normal Affect - Skin Skin Exam: Dry, Intact, Warm Assessment and Plan - Assessment and Plan (Free Text) Assessment: 72 year old female with a past medical history of DM2, HTN, ESRD on HD, and baseline demenita? who is being treated for uncontrolled hypertension and suspected hypertensive encephalopathy. BP showing improvement with anti-hypertensive. Plan: 1. HTN Emergency - Chronic HTN treated with oral anti-hypertensives at home - AMS secondary elevated BP, showing improvement with lowered BP - Patient BP hypotensive overnight - Pt with NG tube placement for feeding and medication - HD yesterday, total UF removed 1.5 liters - Continue ASA and Plavix - CTA of renal arteries cancelled per primary team 2. Elevated Troponin - Troponin spike of 2.79 after admission - Etiology: Likely secondary to low perfusion with hypotensive episode coupled with ESRD - EKG reviewed without ST segment depression/elevations - Troponin trending down DVT/GI PPX - SCDs, Heparin [id number] SC - Pepcid 20 IVP dialy Further recommendations per Dr. Db Kay PGY-1
--- NOTE | 2017-09-13 06:52 | CP.PCM.PN ---
Subjective - Date & Time of Evaluation Date of Evaluation: 09/13/17 Time of Evaluation: 06:46 - Subjective Subjective: Ms. Lopez was seen and examined at the bedside in the ICU. She is alert, oriented to self and place ( [place]), but not time. Her speech is much clearer today.She is not able to answer questions and follow simple commands. She moves all her extremities. She remains with bilateral hand mittens for patient safety. There was no untoward events overnight. Objective - Vital Signs/Intake and Output Vital Signs (last 24 hours): Temp Pulse Resp BP Pulse Ox 98.6 F 85 21 105/57 L 100 09/13/17 04:00 09/13/17 04:00 09/13/17 04:00 09/13/17 04:00 09/13/17 04:00 Intake and Output: 09/12/17 09/13/17 18:59 06:59 Intake Total 0 Balance 0 - Medications Medications: Current Medications Aspirin (Aspirin) 325 mg PO DAILY [facility] Last Admin: 09/12/17 09:08 Dose: 325 mg Calcium Acetate (Phoslo) 1,334 mg PO TID [facility] Last Admin: 09/12/17 18:51 Dose: 1,334 mg Clopidogrel Bisulfate (Plavix) 75 mg PO DAILY [facility] Last Admin: 09/12/17 09:14 Dose: 75 mg Dextrose (Dextrose 50% Inj) 0 ml IV STAT PRN; Protocol PRN Reason: Hypoglycemia Protocol Dextrose (Glutose 15) 0 gm PO ONCE PRN; Protocol PRN Reason: Hypoglycemia Protocol Famotidine (Pepcid) 20 mg PO DAILY [facility] Last Admin: 09/12/17 09:11 Dose: 20 mg Glucagon (Glucagen Diagnostic Kit) 0 mg IM STAT PRN; Protocol PRN Reason: Hypoglycemia Protocol Heparin Sodium (Porcine) (Heparin) 5,000 units SC Q12 [facility] Last Admin: 09/12/17 21:44 Dose: 5,000 units Dextrose (Dextrose 5% In Water 1000 Ml) 1,000 mls @ 0 mls/hr IV .Q0M PRN; Protocol; Per Protocol PRN Reason: Hypoglycemia Protocol Insulin Human Regular (Novolin R) 0 unit SC Q6H [facility] PRN Reason: Protocol Last Admin: 09/13/17 05:47 Dose: Not Given Labetalol HCl (Trandate) 200 mg PO BID [facility] Last Admin: 09/12/17 18:51 Dose: 200 mg Rosuvastatin Calcium (Crestor) 20 mg PO HS [facility] Last Admin: 09/12/17 21:43 Dose: 20 mg - Labs Labs: 09/12/17 05:46 09/12/17 05:44 PT 12.8 SECONDS (9.7-12.2) H 09/05/17 20:16 INR 1.1 09/05/17 20:16 APTT 32 SECONDS (21-34) 09/05/17 20:16 - Constitutional Appears: No Acute Distress - Head Exam Head Exam: NORMAL INSPECTION - Neurological Exam Neurological Exam: Alert, Awake Neuro motor strength exam: Left Upper Extremity: 5, Right Upper Extremity: 5, Left Lower Extremity: 5, Right Lower Extremity: 5 Additional comments: Neurological improved from previous examination, able to verbalize self and place. She moves all extremities. Assessment and Plan (1) Encephalopathy acute Assessment & Plan: Case discussed with Dr. Medel, continue all current medical, physical, and speech therapies. Recommend to treat any underlying infection and any electrolyte abnormalities. Status: Acute
--- NOTE | 2017-09-13 07:05 | CP.PCM.PN ---
Subjective - Date & Time of Evaluation Date of Evaluation: 09/13/17 Time of Evaluation: 07:40 - Subjective Subjective: Medicine progress note for Dr. Ardon Patient seen and examined. Objective - Vital Signs/Intake and Output Vital Signs (last 24 hours): Temp Pulse Resp BP Pulse Ox 98.6 F 85 21 105/57 L 100 09/13/17 04:00 09/13/17 04:00 09/13/17 04:00 09/13/17 04:00 09/13/17 04:00 - Medications Medications: Current Medications Aspirin (Aspirin) 325 mg PO DAILY [facility] Last Admin: 09/12/17 09:08 Dose: 325 mg Calcium Acetate (Phoslo) 1,334 mg PO TID [facility] Last Admin: 09/12/17 18:51 Dose: 1,334 mg Clopidogrel Bisulfate (Plavix) 75 mg PO DAILY [facility] Last Admin: 09/12/17 09:14 Dose: 75 mg Dextrose (Dextrose 50% Inj) 0 ml IV STAT PRN; Protocol PRN Reason: Hypoglycemia Protocol Dextrose (Glutose 15) 0 gm PO ONCE PRN; Protocol PRN Reason: Hypoglycemia Protocol Famotidine (Pepcid) 20 mg PO DAILY [facility] Last Admin: 09/12/17 09:11 Dose: 20 mg Glucagon (Glucagen Diagnostic Kit) 0 mg IM STAT PRN; Protocol PRN Reason: Hypoglycemia Protocol Heparin Sodium (Porcine) (Heparin) 5,000 units SC Q12 [facility] Last Admin: 09/12/17 21:44 Dose: 5,000 units Dextrose (Dextrose 5% In Water 1000 Ml) 1,000 mls @ 0 mls/hr IV .Q0M PRN; Protocol; Per Protocol PRN Reason: Hypoglycemia Protocol Insulin Human Regular (Novolin R) 0 unit SC Q6H [facility] PRN Reason: Protocol Last Admin: 09/13/17 05:47 Dose: Not Given Labetalol HCl (Trandate) 200 mg PO BID [facility] Last Admin: 09/12/17 18:51 Dose: 200 mg Rosuvastatin Calcium (Crestor) 20 mg PO HS [facility] Last Admin: 09/12/17 21:43 Dose: 20 mg - Labs Labs: 09/12/17 05:46 09/12/17 05:44 PT 12.8 SECONDS (9.7-12.2) H 09/05/17 20:16 INR 1.1 09/05/17 20:16 APTT 32 SECONDS (21-34) 09/05/17 20:16 - Additional Findings Additional findings: - Constitutional Appears: No Acute Distress, Confused - Head Exam Head Exam: NORMAL INSPECTION, NORMOCEPHALIC - Eye Exam Eye Exam: EOMI, Normal appearance, PERRL Pupil Exam: NORMAL ACCOMODATION - ENT Exam ENT Exam: Mucous Membranes Moist, Normal Exam Additional Comments: NGT in place - Neck Exam Neck Exam: Normal Inspection - Respiratory Exam Respiratory Exam: Clear to Auscultation Bilateral, NORMAL BREATHING PATTERN. absent: Decreased Breath Sounds, Wheezes - Cardiovascular Exam Cardiovascular Exam: REGULAR RHYTHM, RRR, +S1, +S2 - GI/Abdominal Exam GI & Abdominal Exam: Soft, Normal Bowel Sounds. absent: Distended, Tenderness - Rectal Exam Rectal Exam: Deferred - Extremities Exam Extremities Exam: Normal Inspection. absent: Pedal Edema, Tenderness - Neurological Exam Neurological Exam: Alert, Awake. absent: Oriented x3 Neuro motor strength exam: Left Upper Extremity: 5, Right Upper Extremity: 5, Left Lower Extremity: 5, Right Lower Extremity: 5 - Psychiatric Exam Psychiatric exam: Normal Affect, Normal Mood - Skin Skin Exam: Dry, Intact, Normal Color, Warm Assessment and Plan - Assessment and Plan (Free Text) Plan: Hypertensive Emergency 09/10: BP systolic is 120s to 130s. She was able to take PO Norvasc, Cozzarr, and Clonodine transdermal. Will stop the IV nitroglycerin ggt 09/09: Today this morning mental status seems better. Following basic commands again. Blood pressure now lower. On Nitroglycerin ggt and transdermal clonodine this morning. 09/08: Now moved to the ICU and on nitroglycerin ggt and labetalol ggt. Refusing PO medications prior to ICU Failed topical nitroglycerin Imaging so far does not reveal CVA Current medications: Labetalol 200 mg PO BID Altered Mental Status 09/10: Stopped nitroglycerin ggt and resume some PO BP medications The AMS probably is due HTN emergency/encephalopathy. Patient does have baseline dementia. Imaging: CT head w/o contrast: Atrophy and small vessel disease, no bleed MRI Brain w/o contast: Suboptimal diagnostic quality due to patient motion. No acute intracranial abnormality. Moderate chronic microangiopathic changes and moderate age-related global parenchymal volume loss. MRA Head and Neck: Normal MR angiography of the brain; Normal MR Angiography of the neck. F/U EEG Medications: ASA 325 and Plavix 75 daily Elevated Troponins Likely 2/2 demand ischemia and ESRD No chest pain or palpitations Likely related to HTN emergency ROMIx 3 Elevated: 0.1270 --> 0.1440--> 0.1290 Lipid Panel- WNL ESRD on Hemodialysis Nephrology consult, Dr Lukas Borrego - help appreciated HD TTS Home med Calcium Acetate 1334mg PO TID Type 2 Diabetes Mellitus Accuchecks ISS - medium dose Diabetic Diet Crestor 20mg PO QHS Prophylactic Measures Pepcid 20 mg daily SCDs, Heparin 5000 units Q Pureed diet with thin liquids for now Based on if patient is tolerating oral feeding, will reconsider whether or not to switch to tube feedings
[2017-09-13 11:36] LABS: BASO # 0.1 K/uL (0.0-0.2); BASO % 1.4 % (0.0-2.0); EOS # 0.2 K/uL (0.0-0.7); EOS % 2.4 % (0.0-4.0); HEMOGLOBIN 10.9 g/dL (11.0-16.0); LYMPH # 1.8 K/uL (1.0-4.3); LYMPH % 21.8 % (20.0-40.0); MEAN CELL VOLUME 69.8 fL (81.0-99.0); MEAN CORPUSCULAR HEMOGLOBIN 21.9 pg (27.0-31.0); MEAN CORPUSCULAR HGB CONC 31.4 g/dL (33.0-37.0); MEAN PLATELET VOLUME 9.5 fL (7.2-11.7); MONO # 1.2 K/uL (0.0-0.8); MONO % 15.3 % (0.0-10.0); NEUT # 4.8 K/uL (1.8-7.0); NEUT % 59.1 % (50.0-75.0); RBC 4.97 Mil/uL (3.80-5.20); RED CELL DISTRIBUTION WIDTH 20.7 % (11.5-14.5); WHITE BLOOD COUNT 8.2 K/uL (4.8-10.8)
[2017-09-13 12:22] LABS: ALB/GLOB RATIO 1.1 (1.0-2.1); ALBUMIN 4.1 g/dL (3.5-5.0); CALCIUM 9.1 mg/dl (8.6-10.4)
--- NOTE | 2017-09-13 12:23 | CP.PCM.PN ---
Subjective - Date & Time of Evaluation Date of Evaluation: 09/13/17 Time of Evaluation: 12:21 - Subjective Subjective: alert; no new complaint confused- cannot obtain ROS HTN controlled for dialysis TTS Objective - Vital Signs/Intake and Output Vital Signs (last 24 hours): Temp Pulse Resp BP Pulse Ox 98.6 F 92 H 21 105/57 L 100 09/13/17 04:00 09/13/17 11:48 09/13/17 04:00 09/13/17 04:00 09/13/17 11:48 - Medications Medications: Current Medications Aspirin (Aspirin) 325 mg PO DAILY [facility] Last Admin: 09/13/17 09:18 Dose: 325 mg Calcium Acetate (Phoslo) 1,334 mg PO TID [facility] Last Admin: 09/13/17 09:17 Dose: 1,334 mg Clopidogrel Bisulfate (Plavix) 75 mg PO DAILY [facility] Last Admin: 09/13/17 09:18 Dose: 75 mg Dextrose (Dextrose 50% Inj) 0 ml IV STAT PRN; Protocol PRN Reason: Hypoglycemia Protocol Dextrose (Glutose 15) 0 gm PO ONCE PRN; Protocol PRN Reason: Hypoglycemia Protocol Famotidine (Pepcid) 20 mg PO DAILY [facility] Last Admin: 09/13/17 09:18 Dose: 20 mg Glucagon (Glucagen Diagnostic Kit) 0 mg IM STAT PRN; Protocol PRN Reason: Hypoglycemia Protocol Heparin Sodium (Porcine) (Heparin) 5,000 units SC Q12 [facility] Last Admin: 09/13/17 09:18 Dose: 5,000 units Dextrose (Dextrose 5% In Water 1000 Ml) 1,000 mls @ 0 mls/hr IV .Q0M PRN; Protocol; Per Protocol PRN Reason: Hypoglycemia Protocol Insulin Human Regular (Novolin R) 0 unit SC Q6H [facility] PRN Reason: Protocol Last Admin: 09/13/17 05:47 Dose: Not Given Labetalol HCl (Trandate) 200 mg PO BID [facility] Last Admin: 09/13/17 09:23 Dose: 200 mg Rosuvastatin Calcium (Crestor) 20 mg PO HS [facility] Last Admin: 09/12/17 21:43 Dose: 20 mg - Labs Labs: 09/13/17 11:25 09/12/17 05:44 PT 12.8 SECONDS (9.7-12.2) H 09/05/17 20:16 INR 1.1 09/05/17 20:16 APTT 32 SECONDS (21-34) 09/05/17 20:16 - Constitutional Appears: No Acute Distress, Chronically Ill - Eye Exam Eye Exam: EOMI, Normal appearance - Neck Exam Neck Exam: Normal Inspection. absent: Tenderness - Respiratory Exam Respiratory Exam: Clear to Ausculation Bilateral, NORMAL BREATHING PATTERN - Cardiovascular Exam Cardiovascular Exam: REGULAR RHYTHM, +S1 - GI/Abdominal Exam GI & Abdominal Exam: Soft. absent: Tenderness - Extremities Exam Extremities Exam: Normal Inspection. absent: Tenderness - Neurological Exam Neurological Exam: Awake, CN II-XII Intact - Skin Skin Exam: Dry, Warm Assessment and Plan (1) Uncontrolled hypertension Status: Acute (2) Dementia Status: Acute (3) Altered mental state Status: Acute (4) End-stage renal disease on hemodialysis Status: Chronic (5) Type 2 diabetes mellitus Status: Chronic - Assessment and Plan (Free Text) Plan: same BP meds dialysis TTS
--- NOTE | 2017-09-13 15:45 | CP.PCM.DIS ---
<Kit Bridges - Last Filed: 09/13/17 16:56> Provider - Provider Date of Admission: 09/05/17 21:56 Attending physician: Lalit Ardon MD Primary care physician: Dr. Cheung Consults: Neurology: Dr. Pierce Cardiology: Dr. Gonzalez and Dr. Ace Nephrology: Dr. Borrego ICU: Dr. Huizar Time Spent in preparation of Discharge (in minutes): 50 Diagnosis - Discharge Diagnosis (1) Hypertensive emergency Status: Acute Priority: High (2) Uncontrolled hypertension Status: Acute Priority: High (3) Hypertensive encephalopathy Status: Acute Priority: High (4) Basal ganglia infarction Status: Acute Priority: High (5) Lacunar infarction Status: Acute Priority: High (6) End-stage renal disease on hemodialysis Status: Chronic Priority: High (7) Type 2 diabetes mellitus Status: Chronic Priority: Low Hospital Course - Lab Results Lab Results: Micro Results 09/10/17 20:00 Blood-Venous Blood Culture - Preliminary NO GROWTH AFTER 48 HOURS 09/10/17 19:30 Blood-Venous Blood Culture - Preliminary NO GROWTH AFTER 48 HOURS 09/06/17 17:00 Blood Blood Culture - Final NO GROWTH AFTER 5 DAYS 09/06/17 17:00 Blood Gram Stain - Final TEST NOT PERFORMED 09/05/17 20:12 Blood Blood Culture - Final NO GROWTH AFTER 5 DAYS 09/05/17 20:12 Blood Gram Stain - Final TEST NOT PERFORMED 09/05/17 20:30 Blood Blood Culture - Final NO GROWTH AFTER 5 DAYS 09/05/17 20:30 Blood Gram Stain - Final TEST NOT PERFORMED 09/08/17 13:00 Naris MRSA Culture (Admit) - Final MRSA DETECTED 09/05/17 19:46 Urine Urine Culture - Final No Growth (<1,000 CFU/ML) Most Recent Lab Values WBC 8.2 K/uL (4.8-10.8) 09/13/17 11:25 RBC 4.97 Mil/uL (3.80-5.20) 09/13/17 11:25 Hgb 10.9 g/dL (11.0-16.0) L 09/13/17 11:25 Hct 34.7 % (34.0-47.0) 09/13/17 11:25 MCV 69.8 fL (81.0-99.0) L 09/13/17 11:25 MCH 21.9 pg (27.0-31.0) L 09/13/17 11:25 MCHC 31.4 g/dL (33.0-37.0) L 09/13/17 11:25 RDW 20.7 % (11.5-14.5) H 09/13/17 11:25 Plt Count 299 K/uL (130-400) 09/13/17 11:25 MPV 9.5 fL (7.2-11.7) 09/13/17 11:25 Neut % (Auto) 59.1 % (50.0-75.0) 09/13/17 11:25 Lymph % (Auto) 21.8 % (20.0-40.0) 09/13/17 11:25 [place] % (Auto) 15.3 % (0.0-10.0) H 09/13/17 11:25 Eos % (Auto) 2.4 % (0.0-4.0) 09/13/17 11:25 Baso % (Auto) 1.4 % (0.0-2.0) 09/13/17 11:25 Neut # (Auto) 4.8 K/uL (1.8-7.0) 09/13/17 11:25 Lymph # (Auto) 1.8 K/uL (1.0-4.3) 09/13/17 11:25 [place] # (Auto) 1.2 K/uL (0.0-0.8) H 09/13/17 11:25 Eos # (Auto) 0.2 K/uL (0.0-0.7) 09/13/17 11:25 Baso # (Auto) 0.1 K/uL (0.0-0.2) 09/13/17 11:25 Differential Comment 09/05/17 20:16 PT 12.8 SECONDS (9.7-12.2) H 09/05/17 20:16 INR 1.1 09/05/17 20:16 APTT 32 SECONDS (21-34) 09/05/17 20:16 Puncture Site Rradial 09/10/17 17:40 pCO2 38 mm/Hg (35-45) 09/10/17 17:40 pO2 126 mm/Hg (80-100) H 09/10/17 17:40 HCO3 25.8 mmol/L (21-28) 09/10/17 17:40 ABG pH 7.43 (7.35-7.45) 09/10/17 17:40 ABG Total CO2 26.4 mmol/L (22-28) 09/10/17 17:40 ABG O2 Saturation 98.8 % (95-98) H 09/10/17 17:40 ABG Base Excess 1.0 mmol/L (-2.0-3.0) 09/10/17 17:40 Alessandro Test Pos 09/10/17 17:40 ABG Potassium 3.7 mmol/L (3.6-5.2) 09/10/17 17:40 VBG pH 7.49 (7.32-7.43) H 09/05/17 20:15 VBG pCO2 45 mmHg (40-60) 09/05/17 20:15 VBG HCO3 32.0 mmol/L 09/05/17 20:15 VBG Total CO2 35.7 mmol/L (22-28) H 09/05/17 20:15 VBG O2 Sat (Calc) 79.8 % (40-65) H 09/05/17 20:15 VBG Base Excess 9.7 mmol/L (0.0-2.0) H 09/05/17 20:15 VBG Potassium 3.3 mmol/L (3.6-5.2) L 09/05/17 20:15 A-a O2 Difference 26.0 mm/Hg 09/10/17 17:40 Respiratory Index 0.2 09/10/17 17:40 Sodium 142.0 mmol/l (132-148) 09/10/17 17:40 Chloride 105.0 mmol/L (98-107) 09/10/17 17:40 Glucose 116 mg/dl (65-105) H 09/10/17 17:40 Lactate 1.2 mmol/L (0.7-2.1) 09/10/17 17:40 Liter Flow 2.0 09/10/17 17:40 FiO2 28.0 % 09/10/17 17:40 Sodium 143 mmol/L (132-148) 09/13/17 11:25 Potassium 4.1 mmol/L (3.6-5.2) 09/13/17 11:25 Chloride 96 mmol/L (98-107) L 09/13/17 11:25 Carbon Dioxide 26 mmol/L (22-30) 09/13/17 11:25 Anion Gap 26 (10-20) H 09/13/17 11:25 BUN 37 mg/dL (7-17) H 09/13/17 11:25 Creatinine 7.5 mg/dL (0.7-1.2) H* D 09/13/17 11:25 Est GFR ( Amer) 6 09/13/17 11:25 Est GFR (Non-Af Amer) 5 09/13/17 11:25 POC Glucose (mg/dL) 125 mg/dL (65-110) H 09/13/17 11:41 Random Glucose 137 mg/dL (65-105) H 09/13/17 11:25 Hemoglobin A1c 5.7 % (4.2-6.5) 09/07/17 06:47 Calcium 9.1 mg/dl (8.6-10.4) 09/13/17 11:25 Phosphorus 5.1 mg/dL (2.5-4.5) H 09/13/17 11:25 Magnesium 2.2 mg/dL (1.6-2.3) 09/13/17 11:25 Total Bilirubin 0.7 mg/dL (0.2-1.3) 09/13/17 11:25 AST 26 U/L (14-36) 09/13/17 11:25 ALT 8 U/L (9-52) L D 09/13/17 11:25 Alkaline Phosphatase 80 U/L (38-126) 09/13/17 11:25 Total Creatine Kinase 50 U/L (30-135) 09/10/17 17:51 CK-MB (Mass) 2.37 ng/mL (0.0-3.38) 09/10/17 17:51 Troponin I 1.7700 ng/mL (0.00-0.120) H* 09/11/17 11:22 Total Protein 7.8 g/dL (6.3-8.3) 09/13/17 11:25 Albumin 4.1 g/dL (3.5-5.0) 09/13/17 11:25 Globulin 3.7 gm/dL (2.2-3.9) 09/13/17 11:25 Albumin/Globulin Ratio 1.1 (1.0-2.1) 09/13/17 11:25 Triglycerides 88 mg/dL (0-149) 09/06/17 08:55 Cholesterol 152 mg/dL (0-199) 09/06/17 08:55 LDL Cholesterol Direct 61 mg/dL (0-129) 09/06/17 08:55 HDL Cholesterol 49 mg/dL (30-70) 09/06/17 08:55 Vitamin B12 441 pg/mL (239-931) 09/06/17 08:55 Folate 11.6 ng/mL 09/06/17 08:55 Procalcitonin 1.93 NG/ML (0.19-0.49) H 09/11/17 11:22 Free T4 1.70 ng/dL (0.78-2.19) 09/06/17 17:45 TSH 3rd Generation 2.14 mIU/L (0.46-4.68) 09/06/17 08:55 Arterial Blood Potassium 3.7 mmol/L (3.6-5.2) 09/10/17 17:40 Venous Blood Potassium 3.3 mmol/L (3.6-5.2) L 09/05/17 20:15 Urine Color Yellow (YELLOW) 09/05/17 20:31 Urine Clarity Hazy (Clear) 09/05/17 20:31 Urine pH 8.0 (5.0-8.0) 09/05/17 20:31 Ur Specific Avery 1.015 (1.003-1.030) 09/05/17 20:31 Urine Protein 3+ mg/dL (NEGATIVE) H 09/05/17 20:31 Urine Glucose (UA) 3+ mg/dL (Normal) H 09/05/17 20:31 Urine Ketones Negative mg/dL (NEGATIVE) 09/05/17 20:31 Urine Blood Negative (NEGATIVE) 09/05/17 20:31 Urine Nitrate Negative (NEGATIVE) 09/05/17 20:31 Urine Bilirubin Negative (NEGATIVE) 09/05/17 20:31 Urine Urobilinogen Normal mg/dL (0.2-1.0) 09/05/17 20:31 Ur Leukocyte Esterase Neg Benjamin/uL (Negative) 09/05/17 20:31 Urine WBC (Auto) 1 /hpf (0-5) 09/05/17 20:31 Urine RBC (Auto) 2 /hpf (0-3) 09/05/17 20:31 Ur Squamous Epith Cells 1 /hpf (0-5) 09/05/17 20:31 Hyaline Casts 0-2 /lpf (0-2) 09/05/17 20:31 Hep Bs Antigen Negative (NEGATIVE) 09/07/17 18:24 - Hospital Course Hospital Course: Initial Note: "Mrs Lopez is a 72 year old female with a PMHx of DM2 and ESRD on HD who was brought to [facility] ER because her BP during her HD dialysis session was found to be over 200 systolic. She was given clonidine 0.2mg (twice ) during HD however there was not much improvement in the BP. In addition, her son and [id number] have noticed increasing confusion over the past two days - such as not being able to recall their names. At baseline she has some level of dementia but relatives feel she has been more forgetful and confused the past 2 days. They did not notice the patient have any focal deficits or facial droop or difficulty speaking. At baseline patient ambulates without assistance." Hospital Course: Patient admitted for work up of altered mental status which is believed to be due to hypertensive encephalopathy from the patient's hypertensive emergency.Imaging as listed below is negative for acute patology in the brain. Patient intermittently refused PO blood pressure medications and had to be sent to the ICU for refractory hypertension with systolic pressure in the 200s. There was great difficulty in inserting a nasogastric tube due to patient agitation. Therefore, the patient had to be placed on nitroglycerine and labetalol drips. A nasogastric tube was placed on Monday, and the patient was transitioned off of the drips onto one antihypertensive oral medication. Patient discharged on Labetalol 200 mg PO BID which has been controlling her hypertension. Code stroke was called during her stay in the ICU on Sunday 09/10. Workup revealed small bilateral basal ganglia and lacunar infarcts. Patient placed on Aspirin, Plavix, statin for stroke prevention. By the date of discharge, patient was much improved, answering questions appropriately and was able to tolerate a pureed diet. Patient is to continue the full 21 day course of Plavix. After that, she may be on single antiplatelet therapy as opposed to dual. Patient is to follow up with primary and nephrology. Patient was evaluated by physical therapy who recommended subacute rehab; however, family requests discharge home. Patient is for home with home services for Home Physical Therapy. Pertinent Imaging: EKG on 09/06/17 revealed sinus rhythm with 1st degree AV block. Brain MRI revealed moderate microangiopathic changes but no hemorrhage Head/neck MRA were unremarkable. Head CT 09/10/17 showed small bilateral basal ganglia and lacunar infarcts. This is a summary of the hospital course. For more information, refer to the medical records. Discharge Exam - Additional Findings Additional findings: - Constitutional Appears: No Acute Distress, Confused - Head Exam Head Exam: NORMAL INSPECTION, NORMOCEPHALIC - Eye Exam Eye Exam: EOMI, Normal appearance, PERRL Pupil Exam: NORMAL ACCOMODATION - ENT Exam ENT Exam: Mucous Membranes Moist, Normal Exam - Neck Exam Neck Exam: Normal Inspection - Respiratory Exam Respiratory Exam: Clear to Auscultation Bilateral, NORMAL BREATHING PATTERN. absent: Decreased Breath Sounds, Wheezes - Cardiovascular Exam Cardiovascular Exam: REGULAR RHYTHM, RRR, +S1, +S2 - GI/Abdominal Exam GI & Abdominal Exam: Soft, Normal Bowel Sounds. absent: Distended, Tenderness - Rectal Exam Rectal Exam: Deferred - Extremities Exam Extremities Exam: Normal Inspection. absent: Pedal Edema, Tenderness - Neurological Exam Neurological Exam: Alert, Awake. absent: Oriented x3 Neuro motor strength exam: Left Upper Extremity: 5, Right Upper Extremity: 5, Left Lower Extremity: 5, Right Lower Extremity: 5 - Psychiatric Exam Psychiatric exam: Normal Affect, Normal Mood - Skin Skin Exam: Dry, Intact, Normal Color, Warm Discharge Plan - Discharge Medications Prescriptions: Aspirin [Aspirin Chewable] 81 mg PO DAILY #30 ctb Calcium Acetate 1,334 mg PO TID 30 Days capsule Clopidogrel [Plavix] 75 mg PO DAILY 18 Days tab Labetalol [Trandate] 200 mg PO BID #60 tab Rosuvastatin Calcium [Crestor] 20 mg PO HS #30 tab - Follow Up Plan Condition: STABLE Disposition: HOME/ ROUTINE Instructions: High Blood Pressure (DC), Kidney Failure (DC), Altered Mental Status (DC), Malignant Hypertension (DC), Dementia (DC), Chronic Kidney Disease (DC), Renal Failure Diet (DC), Hypertension (DC) Additional Instructions: Please take Labetalol 200 mg twice a day for your blood pressure. Please take Aspirin 81 mg, Plavix 75 mg, and Rosuvastatin 20 mg each once daily. These are for stroke prevention. You only need to continue the Plavix for another 18 days, but continue the baby aspirin and the Rosuvastatin unless specified by your primary care doctor. Please continue to follow up at your usual dialysis appointments. Patient is for Home with Home services for Home physical therapy. Please follow up with your primary physician Dr. Cheung within 1 week. If there are any new or worsening symptoms, please go to the nearest emergency room. Referrals: Max Gonzalez MD [Staff Provider] - Earl Cheung MD [Staff Provider] - Gutierrez Ace MD [Staff Provider] - Lukas Borrego DO [Staff Provider] - Ralph Medel MD [Staff Provider] - Clinical Quality Measures - CQM - Stroke Antithrombotic Prescribed: Yes Anticoagulation Prescribed for Atrial Flutter, Atrial Fibrillation and History of:: Not Applicable Contranindication/Reason for not providing: Other Other Contraindication/Reason for not providing: Does not have atrial flutter or atrial fibrillation Statin prescribed: Yes <Lalit Ardon - Last Filed: 09/14/17 07:29> Provider - Provider Date of Admission: 09/05/17 21:56 Attending physician: Lalit Ardon MD Hospital Course - Lab Results Lab Results: Micro Results 09/10/17 20:00 Blood-Venous Blood Culture - Preliminary NO GROWTH AFTER 48 HOURS 09/10/17 19:30 Blood-Venous Blood Culture - Preliminary NO GROWTH AFTER 48 HOURS 09/06/17 17:00 Blood Blood Culture - Final NO GROWTH AFTER 5 DAYS 09/06/17 17:00 Blood Gram Stain - Final TEST NOT PERFORMED 09/05/17 20:12 Blood Blood Culture - Final NO GROWTH AFTER 5 DAYS 09/05/17 20:12 Blood Gram Stain - Final TEST NOT PERFORMED 09/05/17 20:30 Blood Blood Culture - Final NO GROWTH AFTER 5 DAYS 09/05/17 20:30 Blood Gram Stain - Final TEST NOT PERFORMED 09/08/17 13:00 Naris MRSA Culture (Admit) - Final MRSA DETECTED 09/05/17 19:46 Urine Urine Culture - Final No Growth (<1,000 CFU/ML) Most Recent Lab Values WBC 8.2 K/uL (4.8-10.8) 09/13/17 11:25 RBC 4.97 Mil/uL (3.80-5.20) 09/13/17 11:25 Hgb 10.9 g/dL (11.0-16.0) L 09/13/17 11:25 Hct 34.7 % (34.0-47.0) 09/13/17 11:25 MCV 69.8 fL (81.0-99.0) L 09/13/17 11:25 MCH 21.9 pg (27.0-31.0) L 09/13/17 11:25 MCHC 31.4 g/dL (33.0-37.0) L 09/13/17 11:25 RDW 20.7 % (11.5-14.5) H 09/13/17 11:25 Plt Count 299 K/uL (130-400) 09/13/17 11:25 MPV 9.5 fL (7.2-11.7) 09/13/17 11:25 Neut % (Auto) 59.1 % (50.0-75.0) 09/13/17 11:25 Lymph % (Auto) 21.8 % (20.0-40.0) 09/13/17 11:25 [place] % (Auto) 15.3 % (0.0-10.0) H 09/13/17 11:25 Eos % (Auto) 2.4 % (0.0-4.0) 09/13/17 11:25 Baso % (Auto) 1.4 % (0.0-2.0) 09/13/17 11:25 Neut # (Auto) 4.8 K/uL (1.8-7.0) 09/13/17 11:25 Lymph # (Auto) 1.8 K/uL (1.0-4.3) 09/13/17 11:25 [place] # (Auto) 1.2 K/uL (0.0-0.8) H 09/13/17 11:25 Eos # (Auto) 0.2 K/uL (0.0-0.7) 09/13/17 11:25 Baso # (Auto) 0.1 K/uL (0.0-0.2) 09/13/17 11:25 Differential Comment 09/05/17 20:16 PT 12.8 SECONDS (9.7-12.2) H 09/05/17 20:16 INR 1.1 09/05/17 20:16 APTT 32 SECONDS (21-34) 09/05/17 20:16 Puncture Site Rradial 09/10/17 17:40 pCO2 38 mm/Hg (35-45) 09/10/17 17:40 pO2 126 mm/Hg (80-100) H 09/10/17 17:40 HCO3 25.8 mmol/L (21-28) 09/10/17 17:40 ABG pH 7.43 (7.35-7.45) 09/10/17 17:40 ABG Total CO2 26.4 mmol/L (22-28) 09/10/17 17:40 ABG O2 Saturation 98.8 % (95-98) H 09/10/17 17:40 ABG Base Excess 1.0 mmol/L (-2.0-3.0) 09/10/17 17:40 Alessandro Test Pos 09/10/17 17:40 ABG Potassium 3.7 mmol/L (3.6-5.2) 09/10/17 17:40 VBG pH 7.49 (7.32-7.43) H 09/05/17 20:15 VBG pCO2 45 mmHg (40-60) 09/05/17 20:15 VBG HCO3 32.0 mmol/L 09/05/17 20:15 VBG Total CO2 35.7 mmol/L (22-28) H 09/05/17 20:15 VBG O2 Sat (Calc) 79.8 % (40-65) H 09/05/17 20:15 VBG Base Excess 9.7 mmol/L (0.0-2.0) H 09/05/17 20:15 VBG Potassium 3.3 mmol/L (3.6-5.2) L 09/05/17 20:15 A-a O2 Difference 26.0 mm/Hg 09/10/17 17:40 Respiratory Index 0.2 09/10/17 17:40 Sodium 142.0 mmol/l (132-148) 09/10/17 17:40 Chloride 105.0 mmol/L (98-107) 09/10/17 17:40 Glucose 116 mg/dl (65-105) H 09/10/17 17:40 Lactate 1.2 mmol/L (0.7-2.1) 09/10/17 17:40 Liter Flow 2.0 09/10/17 17:40 FiO2 28.0 % 09/10/17 17:40 Sodium 143 mmol/L (132-148) 09/13/17 11:25 Potassium 4.1 mmol/L (3.6-5.2) 09/13/17 11:25 Chloride 96 mmol/L (98-107) L 09/13/17 11:25 Carbon Dioxide 26 mmol/L (22-30) 09/13/17 11:25 Anion Gap 26 (10-20) H 09/13/17 11:25 BUN 37 mg/dL (7-17) H 09/13/17 11:25 Creatinine 7.5 mg/dL (0.7-1.2) H* D 09/13/17 11:25 Est GFR ( Amer) 6 09/13/17 11:25 Est GFR (Non-Af Amer) 5 09/13/17 11:25 POC Glucose (mg/dL) 115 mg/dL (65-110) H 09/13/17 17:14 Random Glucose 137 mg/dL (65-105) H 09/13/17 11:25 Hemoglobin A1c 5.7 % (4.2-6.5) 09/07/17 06:47 Calcium 9.1 mg/dl (8.6-10.4) 09/13/17 11:25 Phosphorus 5.1 mg/dL (2.5-4.5) H 09/13/17 11:25 Magnesium 2.2 mg/dL (1.6-2.3) 09/13/17 11:25 Total Bilirubin 0.7 mg/dL (0.2-1.3) 09/13/17 11:25 AST 26 U/L (14-36) 09/13/17 11:25 ALT 8 U/L (9-52) L D 09/13/17 11:25 Alkaline Phosphatase 80 U/L (38-126) 09/13/17 11:25 Total Creatine Kinase 50 U/L (30-135) 09/10/17 17:51 CK-MB (Mass) 2.37 ng/mL (0.0-3.38) 09/10/17 17:51 Troponin I 1.7700 ng/mL (0.00-0.120) H* 09/11/17 11:22 Total Protein 7.8 g/dL (6.3-8.3) 09/13/17 11:25 Albumin 4.1 g/dL (3.5-5.0) 09/13/17 11:25 Globulin 3.7 gm/dL (2.2-3.9) 09/13/17 11:25 Albumin/Globulin Ratio 1.1 (1.0-2.1) 09/13/17 11:25 Triglycerides 88 mg/dL (0-149) 09/06/17 08:55 Cholesterol 152 mg/dL (0-199) 09/06/17 08:55 LDL Cholesterol Direct 61 mg/dL (0-129) 09/06/17 08:55 HDL Cholesterol 49 mg/dL (30-70) 09/06/17 08:55 Vitamin B12 441 pg/mL (239-931) 09/06/17 08:55 Folate 11.6 ng/mL 09/06/17 08:55 Procalcitonin 1.93 NG/ML (0.19-0.49) H 09/11/17 11:22 Free T4 1.70 ng/dL (0.78-2.19) 09/06/17 17:45 TSH 3rd Generation 2.14 mIU/L (0.46-4.68) 09/06/17 08:55 Arterial Blood Potassium 3.7 mmol/L (3.6-5.2) 09/10/17 17:40 Venous Blood Potassium 3.3 mmol/L (3.6-5.2) L 09/05/17 20:15 Urine Color Yellow (YELLOW) 09/05/17 20:31 Urine Clarity Hazy (Clear) 09/05/17 20:31 Urine pH 8.0 (5.0-8.0) 09/05/17 20:31 Ur Specific Avery 1.015 (1.003-1.030) 09/05/17 20:31 Urine Protein 3+ mg/dL (NEGATIVE) H 09/05/17 20:31 Urine Glucose (UA) 3+ mg/dL (Normal) H 03/06/18 20:31 Urine Ketones Negative mg/dL (NEGATIVE) 09/05/17 20:31 Urine Blood Negative (NEGATIVE) 09/05/17 20:31 Urine Nitrate Negative (NEGATIVE) 09/05/17 20:31 Urine Bilirubin Negative (NEGATIVE) 09/05/17 20:31 Urine Urobilinogen Normal mg/dL (0.2-1.0) 09/05/17 20:31 Ur Leukocyte Esterase Neg Benjamin/uL (Negative) 09/05/17 20:31 Urine WBC (Auto) 1 /hpf (0-5) 09/05/17 20:31 Urine RBC (Auto) 2 /hpf (0-3) 09/05/17 20:31 Ur Squamous Epith Cells 1 /hpf (0-5) 09/05/17 20:31 Hyaline Casts 0-2 /lpf (0-2) 09/05/17 20:31 Hep Bs Antigen Negative (NEGATIVE) 09/07/17 18:24 Attending/Attestation - Attestation I have personally seen and examined this patient.: Yes I have fully participated in the care of the patient.: Yes I have reviewed all pertinent clinical information, including history, physical exam and plan: Yes Notes (Text): Patient was seen and examined. She was alert and oriented. Able to answer questions about her dialysis. She was calm and cooperative. PT recommends rehab. She is stable for discharge. Discussed with her son Amos about rehab placement.He wanted to discuss with patient's sister.Discussed with her sister who states that patient will not do well at rehab. She will not cooperate with with rehab center staff and not get benefit from rehab placement. She also admitted that patient has enough help at home and requesting home PT. Discussed with the resident. Patient was discharged home .Recommend to follow her primary care and nephrology.
[2017-09-13 18:40] VITALS: PULSE 86
[2017-09-13 18:42] VITALS: O2SAT 100
== END 2017-09-13 19:21 | disposition home or self-care (01) | DRG 280 ==
LOC: C.ER 18:48 → C.9E 21:56 → C.6T 23:05 → C.9I 09-08 13:02
PROVIDERS: ADMIT Internal Medicine; ATTEND Internal Medicine
PROC: 5A1D70Z Performance of Urinary Filtration, Intermittent, Less than 6 Hours Per Day (ICD-10-PCS; principal; 2017-09-07)
DX: I16.1 Hypertensive emergency (principal); N18.6 End stage renal disease; I21.4 Non-ST elevation (NSTEMI) myocardial infarction; I67.4 Hypertensive encephalopathy; E11.22 Type 2 diabetes mellitus with diabetic chronic kidney disease; I12.0 Hypertensive chronic kidney disease with stage 5 chronic kidney disease or end stage renal disease; D64.9 Anemia, unspecified; Z99.2 Dependence on renal dialysis; E78.00 Pure hypercholesterolemia, unspecified; F03.90 Unspecified dementia, unspecified severity, without behavioral disturbance, psychotic disturbance, mood disturbance, and anxiety; Z87.891 Personal history of nicotine dependence